=== PATIENT | male | born 1935 | race Caucasian/White ===

== ENCOUNTER 2018-12-08 22:52 | Inpatient (IN) | payer MEDICARE, SELFPAY ==
[2018-12-08 23:10] VITALS: BP 157/83; PULSE 63; RESP 20; TEMP 36.6; O2SAT 96; BMI 39.1
--- NOTE | 2018-12-08 23:34 | ED_ITS ---
HPI - Skin/Abscess/Foreign Bdy General Chief complaint: Skin/Abscess/Foreign Body Stated complaint: STATES ABSCESS RT THIGH Time Seen by Provider: 12/08/18 23:34 Source: patient Mode of arrival: ambulatory Limitations: no limitations History of Present Illness HPI narrative: Patient is an 83-year-old insulin-dependent diabetic male who came over from [facility]. Was sent by his primary doctor for concerns of wo rsening cellulitis and an abscess in his right lower extremity. Was reported that the patient was placed on doxycycline several weeks ago for a cellulitis in his back. He states he completed that course and affection had resolved. He stated that approximately 1 week ago he started having redness and swelling to his right lower extremity. Was on the front of his del angel. Stated that the symptoms worsened throughout last week. He went to his primary doctor last week where he was placed on Bactrim. He states he has been taking Bactrim since then. He states that the redness has now worsened over the past 24-36 hr. The swelling has worsened. He is having more pain in his lower extremity. He states that overall he feels okay. Has not had any fevers. Does have swelling from his mid foot up to his knee which he states is new. He has been taking the antibiotics. Patient is on Xarelto. Related Data Home Medications Medication Instructions Recorded Confirmed B1/B2/NIACIN/B12/PROTEASE 1 tab PO #0 02/26/12 (B-Complex With B-12 Tablet) Lantus U-100 Insulin 16 unit SQ QAM #0 02/26/12 glipizide See Rx Instructions .ROUTE 02/26/12 .COMPLEX #0 rosuvastatin [Crestor] 1 tab PO QPM #0 02/26/12 amiodarone 1 tab PO QPM 12/09/18 12/09/18 cholecalciferol (vitamin D3) 1,000 unit PO DAILY 12/09/18 12/09/18 [Vitamin D3] cranberry conc-ascorbic acid 1 tab PO QAM 12/09/18 12/09/18 [Super Cranberry] furosemide 1 tab PO QAM 12/09/18 12/09/18 hydralazine 1 tab PO TID 12/09/18 12/09/18 hydrocortisone valerate PRN 12/09/18 isosorbide mononitrate 1 tab PO DAILY 12/09/18 12/09/18 magnesium oxide-Mg AA chelate 1 tab PO QAM 12/09/18 12/09/18 [Magnesium (oxide/AA chelate)] oxymetazoline 2 spray INTRANASAL PRN PRN 12/09/18 12/09/18 potassium chloride 1 tab PO BID 12/09/18 12/09/18 rivaroxaban [Xarelto] 1 tab PO DAILY 12/09/18 12/09/18 tamsulosin 1 tab PO QPM 12/09/18 12/09/18 Allergies Allergy/AdvReac Type Severity Reaction Status Date / Time hydralazine Allergy Verified 12/08/18 23:18 hydrocodone Allergy Verified 12/08/18 23:18 isradipine Allergy Verified 12/08/18 23:18 atorvastatin AdvReac Verified 12/08/18 23:18 morphine AdvReac Verified 12/08/18 23:18 tramadol AdvReac Verified 12/08/18 23:18 Review of Systems Constitutional Denies fatigue and Denies fever(s) Cardiovascular Denies chest pain and Denies dyspnea Respiratory Denies dyspnea Gastrointestinal Gastrointestinal: Denies abdominal pain Musculoskeletal Denies myalgias, Denies arthralgias and Denies tingling Comments: Swelling to the right lower extremity from the foot to the knee Integumentary/Breasts Comments: Redness on the front part of his right lower extremity with swelling Neurologic Denies behavioral changes and Denies tingling Psychiatric Denies behavioral changes Endocrine Denies fatigue Hematologic/Lymphatic Comments: On Xarelto [facility] Medical History Diabetes (Acute) Hyperlipidemia (Acute) Hypertension (Acute) Social History household members: spouse Smoking Status: Former smoker Social History household members: spouse Smoking Status: Former smoker Exam Initial Vital Signs Initial Vital Signs: Vital Signs Temperature 97.8 F 12/08/18 23:10 Pulse Rate 63 12/08/18 23:10 Respiratory Rate 20 12/08/18 23:10 Blood Pressure 157/83 H 12/08/18 23:10 Pulse Oximetry 96 12/08/18 23:10 Const General: cooperative, comfortable, well developed, well groomed and No acute distress Orientation: alert, awake and oriented x3 Resp Effort & Inspection: normal respiratory effort Cardio Rate: regular rate GI Inspection: non-distended Skin Other: Patient with a 25 cm area of cellulitis encompassing the anterior aspect of the right tibia. Has a center area 3 cm induration. No blisters of the skin. Neuro General: alert, awake and oriented x3 Cognition: normal cognition Speech: speech normal Sensory Exam: no sensory deficits noted Extrem Other: Patient with edema from his right mid foot to just distal to his knee. Full range of motion of the ankle and the knee Psych Appearance: grossly normal and well kempt Procedures Abscess I/D Site: lower extremity Side (if applicable): right Local Anesthetic: lidocaine 1% and with epi Amount of anesthesia used (mL): 8 Technique: incised with #11 blade Irrigation: No Packing used?: none Complications: bleeding Scores GCS Chauncey coma scale eye opening: Spontaneous Cortez coma scale verbal response: Orientated Chauncey coma scale motor response: Obey commands Cortez coma scale total score: 15 Course Orders Ordered: ED Orders 12/09/18 00:25 Basic Metabolic Panel Stat Complete Blood Count AUTO DIFF Stat Partial Thromboplastin Time Stat Procalcitonin Stat Prothrombin Time INR Stat 12/09/18 00:40 Blood Culture Stat Ceftriaxone Sodium/Dextrose (Rocephin) 2 gm in 50 mls @ 100 mls/hr IV Q12H STEPHEN Discontinued Medications Vancomycin HCl 2,000 mg/ (Sodium Chloride) 500 mls @ 250 mls/hr IV NOW ONE Stop: 12/09/18 00:08 Last Infusion: 12/09/18 02:35 Dose: 0 mls/hr Admin: 12/09/18 01:24 Dose: 250 mls/hr Vital Signs - 8 hr 12/08/18 23:10 12/09/18 00:53 12/09/18 01:22 Temperature 97.8 F 97.2 F L Pulse Rate 63 56 L 63 Respiratory Rate 20 18 18 Blood Pressure 157/83 H 129/55 L 148/77 H Pulse Oximetry 96 99 95 MDM - Skin/Abscess/Foreign Bdy Lab Data Attestation: I reviewed the patient's lab results. Result diagrams: 12/09/18 00:25 12/09/18 00:25 Lab Results 12/09/18 12/09/18 12/09/18 Range/Units 00:25 00:25 00:25 WBC 9.0 (4.5-11.0) X10^3/uL RBC 4.06 L (4.5-5.9) X10^6/uL Hgb 13.8 (13.5-17.5) g/dL Hct 41.7 (41-53) % MCV 102.7 H (80-100) fL MCH 34.1 H (26-34) PG MCHC 33.2 (30-36) % RDW 14.4 (11.6-14.8) % Plt Count 108 L (150-400) X10^3/uL Neut % (Auto) 73.1 (50-75) % Lymph % (Auto) 12.9 L (25-40) % [place] % (Auto) 12.0 (3-14) % Eos % (Auto) 1.2 L (2-4) % Baso % (Auto) 0.8 (0-2) % Neut # (Auto) 6600 (4084-6154) /uL Lymph # (Auto) 1200 (5601-4883) /uL [place] # (Auto) 1100 H (0-900) /uL Eos # (Auto) 100 (0-450) /uL Baso # (Auto) 100 (0-100) /uL PT (10.1-12.7) SECONDS INR (0.9-1.3) APTT (26.4-36.2) SECONDS Sodium 140 (137-145) mmol/L Potassium 4.9 (3.4-5.1) mmol/L Chloride 101 (98-107) mmol/L Carbon Dioxide 31 (22-32) mmol/L BUN 42 H (9-20) mg/dL Creatinine 1.90 H (0.66-1.25) mg/dL Estimated GFR 33.9 L (>60) mL/min BUN/Creatinine Ratio 22.1 H (6-22) Glucose 76 L (80-110) mg/dL Calcium 10.1 (8.4-10.2) mg/dL Procalcitonin < 0.05 (<0.5) ng/mL 12/09/18 Range/Units 00:25 WBC (4.5-11.0) X10^3/uL RBC (4.5-5.9) X10^6/uL Hgb (13.5-17.5) g/dL Hct (41-53) % MCV (80-100) fL MCH (26-34) PG MCHC (30-36) % RDW (11.6-14.8) % Plt Count (150-400) X10^3/uL Neut % (Auto) (50-75) % Lymph % (Auto) (25-40) % [place] % (Auto) (3-14) % Eos % (Auto) (2-4) % Baso % (Auto) (0-2) % Neut # (Auto) (0317-2325) /uL Lymph # (Auto) (7170-0565) /uL [place] # (Auto) (0-900) /uL Eos # (Auto) (0-450) /uL Baso # (Auto) (0-100) /uL PT 24.7 H (10.1-12.7) SECONDS INR 2.1 H (0.9-1.3) APTT 38 H (26.4-36.2) SECONDS Sodium (137-145) mmol/L Potassium (3.4-5.1) mmol/L Chloride (98-107) mmol/L Carbon Dioxide (22-32) mmol/L BUN (9-20) mg/dL Creatinine (0.66-1.25) mg/dL Estimated GFR (>60) mL/min BUN/Creatinine Ratio (6-22) Glucose (80-110) mg/dL Calcium (8.4-10.2) mg/dL Procalcitonin (<0.5) ng/mL MDM Narrative Medical decision making narrative: Patient looks well however given his age and his diabetes status and the fact that he has been on Bactrim for 4 days by mouth and has had worsening cellulitis in his right lower extremity admission to the hospital is necessary for IV antibiotics. After bedside ultrasound showed what appeared to be an abscess in the center of the cellulitis and I and D was performed with only minimal return of purulent material. The wound was probed to break up any loculations. Patient was given vancomycin. Discussed the case with Bassam dotson who will admit the patient for IV antibiotics. Discussed admission with the patient who expressed understanding and agreement of plan. Discharge Plan Departure Patient Disposition: Admitted As Inpatient Clinical Impression: Cellulitis Qualifiers: Site of cellulitis: extremity Site of cellulitis of extremity: lower extremity Laterality: right Qualified Code(s): L03.115 - Cellulitis of right lower limb Discharge Date/Time: 12/09/18 00:59 Interventions: ED Discharge Assessment Last Done: 12/09/18 00:53 Admit Date/Time: 12/09/18 00:27 Admit Provider: Tenzin Galan
[2018-12-09] VITALS (12 sets, daily range): BP systolic 125–150; BP diastolic 55–80; PULSE 54–66; RESP 16–20; TEMP 36.2–36.9; O2SAT 89–99; BMI 39.1
--- NOTE | 2018-12-09 00:30 | PC.NURSE ---
I&D performed by MD Esquivel
[2018-12-09 00:34] LABS: Add Manual Diff / Slide Review NO; Basophils Absolute Auto 100 /uL (0-100); Basophils Percent Auto 0.8 % (0-2); Eosinophils Absolute Auto 100 /uL (0-450); Eosinophils Percent Auto 1.2 % (2-4); Hematocrit 41.7 % (41-53); Hemoglobin 13.8 g/dL (13.5-17.5); Lymphocytes Absolute Auto 1200 /uL (1100-4500); Lymphocytes Percent Auto 12.9 % (25-40); Mean Corpuscular HGB Conc 33.2 % (30-36); Mean Corpuscular Hemoglobin 34.1 PG (26-34); Mean Corpuscular Volume 102.7 fL (80-100); Monocytes Absolute Auto 1100 /uL (0-900); Neutrophils Absolute Auto 6600 /uL (1500-7000); Neutrophils Percent Auto 73.1 % (50-75); Platelet Count 108 X10^3/uL (150-400); Red Blood Cell Count 4.06 X10^6/uL (4.5-5.9); Red Cell Distribution Width 14.4 % (11.6-14.8)
[2018-12-09 00:39] LABS: INR 2.1 (0.9-1.3); Prothrombin Time 24.7 SECONDS (10.1-12.7)
[2018-12-09 00:42] LABS: PTT Partial Thromboplastin Tim 38 SECONDS (26.4-36.2)
[2018-12-09 00:46] LABS: BUN Creatinine Ratio 22.1 (6-22); Blood Urea Nitrogen 42 mg/dL (9-20); Calcium 10.1 mg/dL (8.4-10.2); Carbon Dioxide 31 mmol/L (22-32); Chloride 101 mmol/L (98-107); Estimated Glomerular Filt Rate 33.9 mL/min (>60); Glucose 76 mg/dL (80-110); HEMOLYSIS < 15 (0-50); Potassium 4.9 mmol/L (3.4-5.1); Sodium 140 mmol/L (137-145)
[2018-12-09 01:03] LABS: Procalcitonin < 0.05 ng/mL (<0.5)
[2018-12-09] MEDS: VANCOMYCIN 2,000 MG in SODIUM CHLORIDE 0.9% 500 ML 250 ML IV (01:24)
[2018-12-09] MEDS: CEFTRIAXONE 2 GM/50 ML FROZ.PIGGY IV ×2 (03:40→14:14)
[2018-12-09] MEDS: ACETAMINOPHEN 325 MG TABLET 650 MG PO (04:38)
--- NOTE | 2018-12-09 04:54 | PC.NURSE ---
ADMIT NOTE/ PATIENT HOME MEDICATION: Patient admitted to acute care in the 0100 hour this shift from ER. Patient to room via stretcher. Patient transferred from stretcher to bed with SBA. Patient very unsteady on his feet. Patient brought home walker to use and patient label placed on home walker. Patient brought home medications with him in his weekly pill boxes. Explained to patient and patient's this hospital's policy on patient's keeping home medications at the bedside. Patient wanting to take his own medications as he always does from his pill boxes. Again explained to patient that the pharmacist could have to review the pill boxes and that usually when a patient uses their home medications the pharmacy would distribute those pills out of a labeled medication bottle. Patient very irritated with this information and refuses to have pills taken to the pharmacy at to be secured. Patient with Koban wrap on R lower leg from I&D in ER. RLE is red with 2+ pitting edema. Patient with audible wheezing and unable to lay flat in bed. Patient with noted redness to Panus area but patient declines to have this RN fully assess panus. Redness viewed from the side view while patient leaning over onto his walker while ambulating. Noted red, flat area on patient's upper back which patient states is a healing abcess from a few weeks ago. Patient placed on telemetry per orders and patient very upset that he is being monitored as he is just here to have the abcess addressed. Patient complains of cramping pain in RLE and agrees to take tylenol. Dressing very tight on R calf and this RN cut relief points into the back of the Koban with medical scissors. Patient now trying to rest quietly, complains he has not gotten any sleep.
--- NOTE | 2018-12-09 05:30 | P.HP_ITS ---
History of Present Illness Date Patient Seen: 12/09/18 Time Patient Seen: 02:30 Chief complaint: STATES ABSCESS RT THIGH Narrative: This is an 83-year-old male patient with a history of hypertension, hyperlipidemia, insulin-dependent diabetes and atrial fibrillation who presents today for a worsening wound infection with cellulitis. The patient resides on [facility] and has been receiving care on the [place] for an abscess on his back that was treated with doxycycline with resolution however patient has developed a new lesion on his right lower extremity extending from the mid foot to the knee. The patient denies trauma or skin disruption to the leg. Wound been treated with Bactrim however the wound continued to worsen. The patient denies complaints of fevers or chills, headaches or dizziness, chest pain or shortness of breath. He has had no nausea or vomiting and denies constipation or diarrhea. The patient is admitted to the hospital for cellulitis failing outpatient treatment. Patient History Medical History Atrial fibrillation (Acute) Diabetes (Acute) Hyperlipidemia (Acute) Hypertension (Acute) Osteoarthritis (Acute) Surgical History History of aortic valve replacement (Acute) History of back surgery (Acute) History of inguinal hernia repair (Acute) History of spinal fusion (Acute) History of total left hip arthroplasty (Acute) History of total right knee replacement (Acute) Social History household members: spouse Smoking Status: Former smoker Family & Social History Social History: household members spouse Prior Living Arrangements House Safety & Behavioral: Feels Safe in Current Yes Environment Been Physically Hurt or No Threatened By a Person Suicidal Ideation Description None Tobacco & Substance use: Smoking Status Former smoker alcohol intake frequency holiday/special occasion Substance Use Type does not use Comment: The patient lives in is single family home with his of 55 years. Smoking history: The patient has smoked 2 packs per day for 5 years quitting approximately 45 years ago Alcohol: patient denies alcohol use Substance use: Patient denies recreation pharmaceuticals, herbal or cannabis products Advanced directives: the patient wishes to be DO NOT RESUSCITATE/DO NOT INTUBATE and designates his to be his surrogate decision maker Meds Home Medications Medication Instructions Recorded Confirmed Type B1/B2/NIACIN/B12/PROTEASE 1 tab PO DAILY #0 02/26/12 12/09/18 History (B-Complex With B-12 Tablet) Lantus U-100 Insulin 16 unit SQ QAM #0 02/26/12 12/09/18 History glipizide 1 tab PO QPM #0 02/26/12 12/09/18 History rosuvastatin [Crestor] 1 tab PO QPM #0 02/26/12 12/09/18 History amiodarone 1 tab PO QPM 12/09/18 12/09/18 History cholecalciferol (vitamin D3) 1,000 unit PO DAILY 12/09/18 12/09/18 History [Vitamin D3] cranberry conc-ascorbic acid 1 tab PO QAM 12/09/18 12/09/18 History [Super Cranberry] furosemide 1 tab PO QAM 12/09/18 12/09/18 History hydralazine 1 tab PO TID 12/09/18 12/09/18 History hydrocortisone valerate PRN 12/09/18 History isosorbide mononitrate 1 tab PO DAILY 12/09/18 12/09/18 History magnesium oxide-Mg AA chelate 1 tab PO QAM 12/09/18 12/09/18 History [Magnesium (oxide/AA chelate)] oxymetazoline 2 spray INTRANASAL PRN PRN 12/09/18 12/09/18 History potassium chloride 1 tab PO BID 12/09/18 12/09/18 History rivaroxaban [Xarelto] 1 tab PO DAILY 12/09/18 12/09/18 History tamsulosin 1 tab PO QPM 12/09/18 12/09/18 History Allergies Allergy/AdvReac Type Severity Reaction Status Date / Time hydralazine Allergy Verified 12/08/18 23:18 hydrocodone Allergy Verified 12/08/18 23:18 isradipine Allergy Verified 12/08/18 23:18 atorvastatin AdvReac Verified 12/08/18 23:18 morphine AdvReac Verified 12/08/18 23:18 tramadol AdvReac Verified 12/08/18 23:18 Review of Systems Review of Systems All systems reviewed & are unremarkable except as noted in HPI and below Exam Vital Signs (past 8 hours): - 12/08/18 23:10 12/09/18 00:53 12/09/18 01:22 Temperature 97.8 F 97.2 F L Pulse Rate 63 56 L 63 Respiratory Rate 20 18 18 Blood Pressure 157/83 H 129/55 L 148/77 H Pulse Oximetry 96 99 95 12/09/18 04:53 Temperature 97.3 F L Pulse Rate 54 L Respiratory Rate 16 Blood Pressure 125/68 Pulse Oximetry 93 Oxygen Delivery Method Room Air Narrative Exam Narrative: GENERAL APPEARANCE: well developed, obese male who is afebrile and in no acute distress. HEAD: Normocephalic, atraumatic, no scalp lesions. EYES: pupils equal, round, reactive to light and accommodation, sclera non- icteric, extraocular movement intact . EARS: normal external structures, no ear pain NOSE: sinuses non tender to percussion, no rhinorrhea ORAL CAVITY: mucosa moist without lesions or exudate, palate normal, tongue in midline. THROAT: normal, no erythema, no exudate, pharynx normal, uvula midline. NECK/THYROID: neck supple, no jugular venous distention, no carotid bruit, no thyromegaly, trachea midline. LYMPH NODES: no cervical or supraclavicular lymphadenopathy. SKIN: warm and dry, no suspicious lesions, no rashes, good turgor. HEART: regular rate and rhythm, S1-S2, 2/6 systolic murmur, without rubs, gallops, brisk capillary refill, no edema LUNGS: clear to auscultation bilaterally, no coarseness crackles or wheezing, no cough present CHEST: Symmetrical movement, no accessory muscle use, no pain to AP and lateral compression. ABDOMEN: Soft, obese, exam limited by body habitus, no epigastric or abdominal tenderness on palpation, no guarding or peritoneal signs, BACK: nontender to palpation EXTREMITIES: Warmth and swelling to right lower extremity distal to the knee, area of discoloration approximately 10 cm, wound where ER physician evacuated abscess dressed with a pressure dressing moves all extremities, strength is 5/5 and symmetrical NEUROLOGIC: AAO x4, cranial nerves II-XII grossly intact , motor strength normal upper and lower extremities, sensation right foot normal, neuropathy of left foot, hearing grossly normal to speech. PSYCH: alert, cognitive function intact, good eye contact, stable mood with congruent affect Objective Labs Result Diagrams: 12/09/18 00:25 12/09/18 00:25 Labs: Laboratory Results - last 24 hr 12/09/18 12/09/18 12/09/18 00:25 00:25 00:25 WBC 9.0 RBC 4.06 L Hgb 13.8 Hct 41.7 MCV 102.7 H MCH 34.1 H MCHC 33.2 RDW 14.4 Plt Count 108 L Neut % (Auto) 73.1 Lymph % (Auto) 12.9 L [place] % (Auto) 12.0 Eos % (Auto) 1.2 L Baso % (Auto) 0.8 Neut # (Auto) 6600 Lymph # (Auto) 1200 [place] # (Auto) 1100 H Eos # (Auto) 100 Baso # (Auto) 100 PT INR APTT Sodium 140 Potassium 4.9 Chloride 101 Carbon Dioxide 31 BUN 42 H Creatinine 1.90 H Estimated GFR 33.9 L BUN/Creatinine Ratio 22.1 H Glucose 76 L Calcium 10.1 Procalcitonin < 0.05 12/09/18 00:25 WBC RBC Hgb Hct MCV MCH MCHC RDW Plt Count Neut % (Auto) Lymph % (Auto) [place] % (Auto) Eos % (Auto) Baso % (Auto) Neut # (Auto) Lymph # (Auto) [place] # (Auto) Eos # (Auto) Baso # (Auto) PT 24.7 H INR 2.1 H APTT 38 H Sodium Potassium Chloride Carbon Dioxide BUN Creatinine Estimated GFR BUN/Creatinine Ratio Glucose Calcium Procalcitonin Assessment & Plan Assessment & Plan narrative: 1. Skin infection with cellulitis, acute -patient previously treated with doxy Cyclen for back wound with good result -patient with new lesion treated with Bactrim and worsening infection failing outpatient treatment -the patient was started on vancomycin 2 g which is discontinued related to patient's renal function with a BUN of 42 and creatinine 1.9. -the patient is started on ceftriaxone 2 g twice daily -will monitor wound as well as procalcitonin which was initially negative at less than 0.05 2. Diabetes mellitus type 2, insulin-dependent, chronic -patient requires Lantus 16 units once daily and also takes glipizide daily, his blood sugar on lab work in the ER was 76, will continue Lantus 16 units daily -patient with nephropathy and neuropathy and has been prescribed Lyrica for his neuropathy. -Accu-Cheks a.c. HS, will cover with low range sliding scale insulin -will obtain hemoglobin A1c 3. Chronic kidney disease stage III, present on admission, unknown of acute on chronic -there are no previous labs for comparison her patient has a BUN of 42 and creatinine 1.9. -urinalysis is ordered -vancomycin discontinued due to renal toxicity, will continue Lasix 40 mg daily -will follow renal function 4. Hypertension, present on admission, chronic -admitting blood pressure is 157/83. Follow-up pressure on the floor is 125/68. -will continue isosorbide and hold hydralazine and follow blood pressures 5. Atrial fibrillation, chronic -Patient with regular rhythm on exam -patient is on amiodarone and anticoagulated on Xarelto. 6. Hyperlipidemia, chronic, presume stable -will continue rosuvastatin 10 mg daily The patient is admitted to the hospital related to severity of symptoms and risk for complications. The patient is admitted as an inpatient with anticipation of length of stay to be greater than 2 midnights. Time Spent With Patient Time with patient: 25 - 35 minutes Quality VTE Deep Vein Thrombosis/Pulmonary Embolism Present on Admission: No
[2018-12-09 06:15] LABS: Add Manual Diff / Slide Review NO; Basophils Absolute Auto 0 /uL (0-100); Basophils Percent Auto 0.4 % (0-2); Eosinophils Absolute Auto 100 /uL (0-450); Eosinophils Percent Auto 1.2 % (2-4); Hematocrit 37.7 % (41-53); Hemoglobin 12.8 g/dL (13.5-17.5); Lymphocytes Absolute Auto 800 /uL (1100-4500); Lymphocytes Percent Auto 10.3 % (25-40); Mean Corpuscular HGB Conc 33.9 % (30-36); Mean Corpuscular Hemoglobin 34.9 PG (26-34); Mean Corpuscular Volume 103.1 fL (80-100); Monocytes Absolute Auto 1000 /uL (0-900); Monocytes Percent Auto 12.6 % (3-14); Neutrophils Absolute Auto 6100 /uL (1500-7000); Neutrophils Percent Auto 75.5 % (50-75); Platelet Count 91 X10^3/uL (150-400); Red Blood Cell Count 3.66 X10^6/uL (4.5-5.9); Red Cell Distribution Width 14.2 % (11.6-14.8)
[2018-12-09 06:38] LABS: BUN Creatinine Ratio 21.1 (6-22); Blood Urea Nitrogen 38 mg/dL (9-20); Calcium 9.4 mg/dL (8.4-10.2); Carbon Dioxide 29 mmol/L (22-32); Chloride 103 mmol/L (98-107); Estimated Glomerular Filt Rate 36.1 mL/min (>60); Glucose 85 mg/dL (80-110); HEMOLYSIS < 15 (0-50); Potassium 4.3 mmol/L (3.4-5.1); Sodium 140 mmol/L (137-145)
[2018-12-09 07:02] LABS: Procalcitonin < 0.05 ng/mL (<0.5)
--- NOTE | 2018-12-09 07:23 | PM.PN.1 ---
Subjective Date Patient Seen: 12/09/18 Interval history: Sami Mcneal is an 83-year-old male with a past medical history significant for hypertension, hyperlipidemia, insulin-dependent diabetes and atrial fibrillation who presents today for a worsening wound infection with cellulitis The patient is resting in bed comfortably and in no acute distress. He or she denies headache, ear pain, rhinitis, sore throat, cough, shortness of breath, chest pain, abdominal pain, nausea, vomiting, fever, chills, dysuria, diarrhea or constipation. He or she is voiding and eliminating without difficulty. He or she is up ambulating without or with assistance. Exam Vital Signs (past 8 hours): - 12/09/18 00:53 12/09/18 01:22 12/09/18 04:53 Temperature 97.2 F L 97.3 F L Pulse Rate 56 L 63 54 L Respiratory Rate 18 18 16 Blood Pressure 129/55 L 148/77 H 125/68 Pulse Oximetry 99 95 93 Oxygen Delivery Method Room Air Objective Labs Result Diagrams: 12/09/18 05:27 12/09/18 05:27 Labs: Laboratory Results - last 24 hr 12/09/18 12/09/18 12/09/18 00:25 00:25 00:25 WBC 9.0 RBC 4.06 L Hgb 13.8 Hct 41.7 MCV 102.7 H MCH 34.1 H MCHC 33.2 RDW 14.4 Plt Count 108 L Neut % (Auto) 73.1 Lymph % (Auto) 12.9 L [place] % (Auto) 12.0 Eos % (Auto) 1.2 L Baso % (Auto) 0.8 Neut # (Auto) 6600 Lymph # (Auto) 1200 [place] # (Auto) 1100 H Eos # (Auto) 100 Baso # (Auto) 100 PT INR APTT Sodium 140 Potassium 4.9 Chloride 101 Carbon Dioxide 31 BUN 42 H Creatinine 1.90 H Estimated GFR 33.9 L BUN/Creatinine Ratio 22.1 H Glucose 76 L Calcium 10.1 Procalcitonin < 0.05 12/09/18 12/09/18 12/09/18 00:25 05:27 05:27 WBC 8.0 RBC 3.66 L Hgb 12.8 L Hct 37.7 L MCV 103.1 H MCH 34.9 H MCHC 33.9 RDW 14.2 Plt Count 91 L Neut % (Auto) 75.5 H Lymph % (Auto) 10.3 L [place] % (Auto) 12.6 Eos % (Auto) 1.2 L Baso % (Auto) 0.4 Neut # (Auto) 6100 Lymph # (Auto) 800 L [place] # (Auto) 1000 H Eos # (Auto) 100 Baso # (Auto) 0 PT 24.7 H INR 2.1 H APTT 38 H Sodium Potassium Chloride Carbon Dioxide BUN Creatinine Estimated GFR BUN/Creatinine Ratio Glucose Calcium Procalcitonin < 0.05 12/09/18 05:27 WBC RBC Hgb Hct MCV MCH MCHC RDW Plt Count Neut % (Auto) Lymph % (Auto) [place] % (Auto) Eos % (Auto) Baso % (Auto) Neut # (Auto) Lymph # (Auto) [place] # (Auto) Eos # (Auto) Baso # (Auto) PT INR APTT Sodium 140 Potassium 4.3 Chloride 103 Carbon Dioxide 29 BUN 38 H Creatinine 1.80 H Estimated GFR 36.1 L BUN/Creatinine Ratio 21.1 Glucose 85 Calcium 9.4 Procalcitonin Quality VTE Deep Vein Thrombosis/Pulmonary Embolism Present on Admission: No
[2018-12-09 08:32] LABS: Hemoglobin A1C% w Est Avg Glu 6.2 % (4.0-6.0)
[2018-12-09 08:52] LABS: RBC Urine None Seen (0-5/HPF); WBC Urine None Seen (0-5/HPF)
[2018-12-09 08:55] LABS: Appearance Urine UA CLEAR; Bilirubin Urine UA NEGATIVE (NEGATIVE); Color Urine UA YELLOW; Glucose Urine UA NEGATIVE (Negative); Ketones Urine UA NEGATIVE (NEGATIVE); Leukocyte Esterase Urine UA NEGATIVE (NEGATIVE); Nitrite Urine UA NEGATIVE (Negative); Occult Blood Urine UA NEGATIVE (Negative); Protein Urine UA 1+ (Negative); Specific Gravity Urine UA 1.025 (1.000-1.035); Urobilinogen Urine UA 0.2 E.U./dL (0.2)
[2018-12-09] MEDS: ISOSORBIDE MONONITRATE ER 30 MG TABLET PO (09:49)
[2018-12-09] MEDS: INSULIN GLARGINE 100 UNIT/ML 3ML PEN 16 UNIT SUBCUT (09:49)
[2018-12-09] MEDS: RIVAROXABAN 10 MG TABLET 15 MG PO ×2 (09:49→17:03)
[2018-12-09] MEDS: POTASSIUM CHLORIDE 10 MEQ TAB PO ×2 (09:49→21:11)
[2018-12-09] MEDS: FUROSEMIDE 40 MG TABLET PO (09:50)
[2018-12-09 09:54] LABS: Bacteria Urine Few (2-10); Culture Indicated Urine Cult Not Indicated; Squamous Epithelial Cell Urine 0-1 /HPF
--- NOTE | 2018-12-09 14:29 | CM.DANOTE ---
Discharge Planning/Care Management DCP: assessment: case received, EMR reviewed and met with pt and his ,Leah. Introduced self and role. Pt is an 83 year old male who admitted shortly after midnight to care of hospitalist team. Payer: [employer] and [employer] PCP: Dr. Khari Clark. Pt reports he is most eager to d/c home but does admit that it is prudent to stay and receive treatment for his leg infection. He and Leah live on [facility]. He has just completed antibiotics for an abscess on his back with care at the [facility]. Now with abscess on his R thigh and with I&D in ER. IV antibiotics are running. P: Pt is eager for home when stable for same. will be following. Leah is rooming in. CM Discharge Assessment Start: 12/09/18 14:28 Freq: Status: Active Protocol: Document 12/09/18 14:28 ITV (Rec: 12/09/18 14:29 ITV [id number]) Discharge Planning Assessment Advance Directives? No History Provided By Patient Family Member Medical Record Prior Living Arrangements House Household Members spouse Review Status In Process Next Review Type Continued Stay Review
[2018-12-09] MEDS: BISACODYL 5 MG TABLET 10 MG PO (14:53)
--- NOTE | 2018-12-09 14:59 | PC.NURSE ---
Addendum entered by Mulu Weller R.N. 12/09/18 15:00: Dressing that was in place this AM had coban in place, RLE had swollen and coban had become tight. this was removed and kerlix was applied. This continued to fall off so a small mepilex was applied to absorb small amt of drainage. Wound cultures taken and sent to lab. 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 Original Note: Day shift pt c/o of needing stool softener. PRN biscodyl PO provided, awaiting results. Up with SBA/1Person assist.
[2018-12-09] MEDS: TAMSULOSIN 0.4 MG CAPSULE PO (17:04)
[2018-12-09] MEDS: INSULIN ASPART 100 UNIT/ML INSULN PEN SUBCUT (17:04)
[2018-12-09] MEDS: AMIODARONE 200 MG TABLET PO (17:04)
[2018-12-09] MEDS: ROSUVASTATIN 10 MG TABLET PO (21:11)
[2018-12-10] MEDS: CEFTRIAXONE 2 GM/50 ML FROZ.PIGGY IV (02:13)
[2018-12-10] MEDS: SODIUM CHLORIDE 0.9% 250 ML 21 ML IV (02:40)
[2018-12-10 05:00] VITALS: BP 160/92; PULSE 64; RESP 16; TEMP 36.6; O2SAT 93
--- NOTE | 2018-12-10 06:06 | PC.NURSE ---
Assumed care of pt at 2300 on 12/09/18. Pt sleeping in bed during bedside hand-off. Awakens to use bathroom. 1 pa w/fww to bathroom. Leans forward during ambulation but steady gait. Erythema to RLE much improved from prior assessments. Drsg c/d/i. Wrap removed on prior shift. Denies pain. Denies sob. IV S.L. with intermit abx. rooming in for the night. Pt up several times to void, he states this is very inconvenient and states he does not want to take anymore lasix. This commercial underwriter notified Hospitalist of pt's plan to stop taking lasix and elevation of BP. Bed alarm though-out shift, pt using call light for needs.
[2018-12-10 06:17] VITALS: O2SAT 93
[2018-12-10 06:33] LABS: Add Manual Diff / Slide Review NO; Basophils Absolute Auto 100 /uL (0-100); Basophils Percent Auto 0.7 % (0-2); Eosinophils Absolute Auto 200 /uL (0-450); Eosinophils Percent Auto 2.4 % (2-4); Hematocrit 39.2 % (41-53); Lymphocytes Absolute Auto 900 /uL (1100-4500); Lymphocytes Percent Auto 11.2 % (25-40); Mean Corpuscular HGB Conc 33.2 % (30-36); Mean Corpuscular Hemoglobin 34.4 PG (26-34); Mean Corpuscular Volume 103.5 fL (80-100); Monocytes Absolute Auto 1000 /uL (0-900); Monocytes Percent Auto 12.4 % (3-14); Neutrophils Absolute Auto 6000 /uL (1500-7000); Neutrophils Percent Auto 73.3 % (50-75); Platelet Count 97 X10^3/uL (150-400); Red Blood Cell Count 3.79 X10^6/uL (4.5-5.9); Red Cell Distribution Width 14.3 % (11.6-14.8); White Blood Cell Count 8.1 X10^3/uL (4.5-11.0)
[2018-12-10 06:40] LABS: BUN Creatinine Ratio 23.7 (6-22); Blood Urea Nitrogen 45 mg/dL (9-20); Calcium 9.5 mg/dL (8.4-10.2); Carbon Dioxide 29 mmol/L (22-32); Chloride 102 mmol/L (98-107); Estimated Glomerular Filt Rate 33.9 mL/min (>60); Glucose 115 mg/dL (80-110); HEMOLYSIS < 15 (0-50); Potassium 4.6 mmol/L (3.4-5.1); Sodium 139 mmol/L (137-145)
[2018-12-10 07:30] VITALS: BP 157/78; PULSE 60; RESP 18; TEMP 36.3; O2SAT 92
[2018-12-10 07:43] VITALS: O2SAT 93
[2018-12-10] MEDS: FUROSEMIDE 40 MG TABLET PO (08:43)
[2018-12-10] MEDS: INSULIN GLARGINE 100 UNIT/ML 3ML PEN 16 UNIT SUBCUT (08:44)
[2018-12-10] MEDS: SODIUM CHLORIDE 0.9% FLUSH 10 ML IV (08:44)
[2018-12-10] MEDS: POTASSIUM CHLORIDE 10 MEQ TAB PO (08:44)
[2018-12-10] MEDS: ISOSORBIDE MONONITRATE ER 30 MG TABLET PO (08:44)
--- NOTE | 2018-12-10 09:12 | P.DS_ITS ---
History of Present Illness Chief complaint: STATES ABSCESS RT THIGH Narrative: his is an 83-year-old male patient with a history of hypertension, hyperlipidemia, insulin-dependent diabetes and atrial fibrillation who presents today for a worsening wound infection with cellulitis. The patient resides on [facility] and has been receiving care on the [place] for an abscess on his back that was treated with doxycycline with resolution however patient has developed a new lesion on his right lower extremity extending from the mid foot to the knee. The patient denies trauma or skin disruption to the leg. Wound been treated with Bactrim however the wound continued to worsen. The patient denies complaints of fevers or chills, headaches or dizziness, chest pain or shortness of breath. He has had no nausea or vomiting and denies constipation or diarrhea. The patient is admitted to the hospital for cellulitis failing outpatient treatment. Discharge Providers Date of admission: 12/09/18 00:27 Discharge Date: 12/10/18 Primary care physician: Rene Clark MD Discharge provider: Janelle Lynch MD Summary Discharge Diagnosis: Right lower extremity cellulitis with abscess, present on admission Persistant Atrial Fibrillation Type 2 Diabetes Mellitus Hyperlipidemia Chronic Systolic Heart Failure Urinary frequency Obesity Chronic Kidney Disease Stage 3 Hospital Course: The patient is an 83 y/o male who was admitted for failed outpatient treatment of right lower extremity cellulitis. He underwent Incision and Drainage in the Emergency department and was started on IV antibiotics. The patient had a culture obtained which had a negative gram stain. He remained afebrile. As the gram stain was negative the patient will be switched to oral doxycycline and discharged home. The patient denies shortness of breath, diarrhea, or constipation. He was discharged home with plans to follow up with his PCP next week. Status at Discharge Cognitive/behavioral status at discharge: oriented Functional status at discharge: independent ambulation Overall status at discharge: patient is back to baseline Time Spent with Patient Less than 30 minutes Exam Vital Signs (past 8 hours): - 12/10/18 05:00 12/10/18 06:17 12/10/18 07:43 Temperature 97.8 F Pulse Rate 64 Respiratory Rate 16 Blood Pressure 160/92 H Pulse Oximetry 93 93 93 Oxygen Delivery Method Room Air Oxygen Flow Rate 0 Narrative Exam Narrative: Awake male in no acute distress LUngs: decreased breath sounds with end expiratory wheezing CV: RRR nl Sl S2 2/6 ETHAN Abd: obese soft/ non tender Ext: right lower extremity with erythema, tender, no exudate or pus from wound Objective Labs Result Diagrams: 12/10/18 05:53 12/10/18 05:53 Labs: Laboratory Results - last 24 hr 12/09/18 12/09/18 12/09/18 08:51 09:45 09:45 WBC RBC Hgb Hct MCV MCH MCHC RDW Plt Count Neut % (Auto) Lymph % (Auto) [place] % (Auto) Eos % (Auto) Baso % (Auto) Neut # (Auto) Lymph # (Auto) [place] # (Auto) Eos # (Auto) Baso # (Auto) Sodium Potassium Chloride Carbon Dioxide BUN Creatinine Estimated GFR BUN/Creatinine Ratio Glucose Calcium Urine Color Yellow Urine Appearance Clear Urine pH 6.0 Ur Specific [place] 1.025 Urine Protein 1+ H Urine Glucose (UA) Negative Urine Ketones Negative Urine Occult Blood Negative Urine Nitrate Negative Urine Bilirubin Negative Urine Urobilinogen 0.2 Ur Leukocyte Esterase Negative Urine RBC None seen Urine WBC None seen Ur Squamous Epith Cells 0-1 /hpf Urine Bacteria Few (2-10) H Ur Culture Indicated? Cult not indicated Nasal Screen MRSA (PCR) Negative for mrsa Negative for mrsa 12/10/18 12/10/18 05:53 05:53 WBC 8.1 RBC 3.79 L Hgb 13.0 L Hct 39.2 L MCV 103.5 H MCH 34.4 H MCHC 33.2 RDW 14.3 Plt Count 97 L Neut % (Auto) 73.3 Lymph % (Auto) 11.2 L [place] % (Auto) 12.4 Eos % (Auto) 2.4 Baso % (Auto) 0.7 Neut # (Auto) 6000 Lymph # (Auto) 900 L [place] # (Auto) 1000 H Eos # (Auto) 200 Baso # (Auto) 100 Sodium 139 Potassium 4.6 Chloride 102 Carbon Dioxide 29 BUN 45 H Creatinine 1.90 H Estimated GFR 33.9 L BUN/Creatinine Ratio 23.7 H Glucose 115 H Calcium 9.5 Urine Color Urine Appearance Urine pH Ur Specific [place] Urine Protein Urine Glucose (UA) Urine Ketones Urine Occult Blood Urine Nitrate Urine Bilirubin Urine Urobilinogen Ur Leukocyte Esterase Urine RBC Urine WBC Ur Squamous Epith Cells Urine Bacteria Ur Culture Indicated? Nasal Screen MRSA (PCR) Discharge Plan Discharge Plan Discharge Problem: Cellulitis Patient Disposition: Home Discharge Med Rec/Prescriptions Prescriptions: New doxycycline hyclate 100 mg tablet 100 mg PO BID Qty: 14 RF: 0 Continued Lantus U-100 Insulin 100 UNIT/1 ML solution 16 unit SQ QAM Qty: 0 RF: 0 rosuvastatin [Crestor] 10 MG tablet 1 tab PO QPM Qty: 0 RF: 0 glipizide 5 MG tablet 1 tab PO QPM Qty: 0 RF: 0 B1/B2/NIACIN/B12/PROTEASE (B-Complex With B-12 Tablet) 1 tab PO DAILY Qty: 0 RF: 0 amiodarone 200 mg tablet 1 tab PO QPM RF: 0 furosemide 40 mg tablet 1 tab PO QAM RF: 0 tamsulosin 0.4 mg capsule 1 tab PO QPM RF: 0 isosorbide mononitrate 30 mg tablet extended release 24 hr 1 tab PO DAILY RF: 0 potassium chloride 10 mEq capsule, extended release 1 tab PO BID RF: 0 Xarelto 15 mg tablet 1 tab PO DAILY RF: 0 oxymetazoline 0.05 % spray,non-aerosol 2 spray Intranasal PRN PRN (Reason: (Drug) Ingestion) RF: 0 hydralazine 10 mg tablet 1 tab PO TID RF: 0 Magnesium (oxide/AA chelate) 300 mg Capsule 1 tab PO QAM RF: 0 cholecalciferol (vitamin D3) [Vitamin D3] 1,000 unit Capsule 1,000 unit PO DAILY RF: 0 Super Cranberry 140-100 mg Capsule 1 tab PO QAM RF: 0 hydrocortisone valerate 0.2 % ointment 1 % topical PRN PRN (Reason: Rash) RF: 0 Follow up/Referrals: Rene Clark MD [Primary Care Provider] - Provider Discharge Instructions Diet: Carb-consistent/Diabetic, Low-fat and Low-sodium Activity: as tolerated, elevate right leg often Skin/Wound/Dressing Care Report to your healthcare provider any signs of infection, such as:: chills, fever and night sweats Dressing: dressing change daily until healed Discharge Data Primary Care Provider: Rene Clark Attending Provider: Tenzin Galan Admit Date/Time: 12/09/18 00:27 Quality VTE Deep Vein Thrombosis/Pulmonary Embolism Present on Admission: No
[2018-12-10 11:15] VITALS: O2SAT 94
[2018-12-10 11:22] VITALS: BP 145/72; PULSE 63; RESP 18; TEMP 36.4; O2SAT 90
[2018-12-10] MEDS: INSULIN ASPART 100 UNIT/ML INSULN PEN SUBCUT (12:46)
--- NOTE | 2018-12-10 13:42 | PC.NURSE ---
Discharge pt took all belongings with him. PIV and tele removed prior to d/c. Rx called [facility] and pt took paper Rx with him. D/c instructions provided to pt and . aware to contact PCP with any additional questions or concerns. pt left in w/c with [employer] escort and . Juan priority boarding pass provided to pt.
== END 2018-12-10 13:15 | disposition home or self-care (01) | DRG 603 ==
LOC: ED 12-09 00:08 → AC 12-09 07:41
PROVIDERS: Internal Medicine; Admitting Provider Nurse Practitioner Adult Health; Emergency Provider Emergency Medicine; Family Provider Family Medicine; PCP Family Medicine; Visit Provider Nurse Practitioner Adult Health
DX: L03.116 Cellulitis of left lower limb (principal); I48.1 Persistent atrial fibrillation; E66.9 Obesity, unspecified; Z68.39 Body mass index [BMI] 39.0-39.9, adult; I12.9 Hypertensive chronic kidney disease with stage 1 through stage 4 chronic kidney disease, or unspecified chronic kidney disease; E11.22 Type 2 diabetes mellitus with diabetic chronic kidney disease; N18.3 Chronic kidney disease, stage 3 (moderate); E78.5 Hyperlipidemia, unspecified; Z87.891 Personal history of nicotine dependence; Z79.01 Long term (current) use of anticoagulants; L02.415 Cutaneous abscess of right lower limb
CPT/HCPCS: 10060; 36415; 36591; 80048; 81001; 82962; 83036; 84145; 85025; 85610; 85730; 87040; 87070; 87205; 87797; 99282; 99283; J0696

== ENCOUNTER 2019-07-02 12:26 | Inpatient (IN) | payer MEDICARE, SELFPAY ==
[2018-12-09 01:27] VITALS: BMI 39.1
[2019-07-02 12:32] VITALS: BP 142/63; PULSE 66; RESP 18; O2SAT 98
--- NOTE | 2019-07-02 12:33 | DI.RAD.S_ITS ---
PROCEDURE: XR CHEST 1V INDICATIONS: sob TECHNIQUE: One view of the chest was acquired. COMPARISON: None. FINDINGS: Surgical changes and devices: None. Lungs and pleura: Lungs are clear. No pleural effusions or pneumothorax. Mediastinum: Mediastinal contours appear normal. Heart is enlarged. Bones and chest wall: No suspicious bony lesions. Overlying soft tissues appear unremarkable. Lucency is noted in the mid right clavicle which may represent subacute fracture. IMPRESSION: 1. No acute cardiopulmonary disease process. 2. Lucency in the right mid clavicle which could represent artifact or subacute nondisplaced fracture. Recommend dedicated right clavicular x-ray series. Dictated by: Kelly Gates MD, PhD on 07/02/2019 at 12:09 Approved by: Kelly Gates MD, PhD on 07/02/2019 at 12:22
--- NOTE | 2019-07-02 12:57 | ED_ITS ---
HPI - Wound/Laceration General Chief Complaint: Wound/Laceration Stated Complaint: Wound Eval/hypox Time Seen by Provider: 07/02/19 12:33 Source: patient and EMS Mode of arrival: EMS Limitations: no limitations History of Present Illness HPI narrative: The patient is a 83-year-old male with history of insulin-depend ent diabetes coming [place] [facility] from [facility] presenting with worsening cellulitis of his lower extremities and hypoxia. He was actually seen evaluated there at initially for worsening cellulitis his left leg is draining much more than it used to, but his legs have overall been red for some time. He denies any shortness of breath or chest pain. [facility] states that on room air he was 88% he was put on 4 L and O2 increased. With very minimal movement his oxygen level decreased. He states that he may have noticed more shortness of breath with exertion but his main concern is his legs. He denies any fever no abdominal pain. Related Data Home Medications Medication Instructions Recorded Confirmed B1/B2/NIACIN/B12/PROTEASE 1 tab PO DAILY #0 02/26/12 07/02/19 (B-Complex With B-12 Tablet) Lantus U-100 Insulin 16 unit SQ QAM #0 02/26/12 07/02/19 glipizide 5 mg PO DAILY #0 02/26/12 07/02/19 rosuvastatin [Crestor] 10 mg PO QPM #0 02/26/12 07/02/19 Magnesium (oxide/AA chelate) 1 tab PO QAM 12/09/18 07/02/19 Super Cranberry 1 tab PO QAM 12/09/18 07/02/19 amiodarone 100 mg PO DAILY 12/09/18 07/02/19 cholecalciferol (vitamin D3) 1,000 unit PO DAILY 12/09/18 07/02/19 [Vitamin D3] furosemide 40 mg PO DAILY 12/09/18 07/02/19 hydralazine 10 mg PO TID 12/09/18 07/02/19 isosorbide mononitrate 30 mg PO DAILY 12/09/18 07/02/19 oxymetazoline 2 spray INTRANASAL PRN PRN 12/09/18 07/02/19 potassium chloride 20 meq PO DAILY 12/09/18 07/02/19 tamsulosin 0.4 mg PO QPM 12/09/18 07/02/19 apixaban [Eliquis] 2.5 mg PO BID 07/02/19 07/02/19 hydrocortisone valerate 1 applic TOPICAL DAILY 07/02/19 07/02/19 insulin glargine [Lantus Solostar 16 unit SUBCUT DAILY 07/02/19 07/02/19 U-100 Insulin] mupirocin 1 applic TOPICAL TID 07/02/19 07/02/19 Allergies Allergy/AdvReac Type Severity Reaction Status Date / Time hydralazine Allergy Verified 07/02/19 12:42 hydrocodone Allergy Verified 07/02/19 12:42 isradipine Allergy Verified 07/02/19 12:42 atorvastatin AdvReac Verified 07/02/19 12:42 morphine AdvReac Verified 07/02/19 12:42 tramadol AdvReac Verified 07/02/19 12:42 Review of Systems Review of Systems ROS Unobtainable: All systems reviewed & are unremarkable except as noted in HPI and below Constitutional Constitutional: Denies chills, Denies fever(s), Denies lethargy and Denies weakn ess Cardiovascular Cardiovascular: Denies chest pain, Denies irregular heart rhythm, Denies lightheadedness, Denies palpitations and Denies orthopnea Respiratory Respiratory: Reports as per HPI Gastrointestinal Gastrointestinal: Denies abdominal pain, Denies change in bowel habits, Denies diarrhea, Denies nausea and Denies vomiting Genitourinary Genitourinary: Denies hematuria, Denies flank pain, Denies urinary incontinence and Denies urinary urgency Musculoskeletal Musculoskeletal: Denies back pain, Denies muscle weakness, Denies numbness and Denies tingling Integumentary/Breasts Skin/Breast: Reports system reviewed and no additional complaints, except as docu and Reports as per HPI Neurologic Neurologic: Denies confusion, Denies numbness, Denies tingling and Denies weakness Psychiatric Psychiatric: Denies anxiety, Denies confusion, Denies depression, Denies homicidal ideation and Denies suicidal ideation Endocrine Endocrine: Denies palpitations Patient History Medical History Atrial fibrillation (Acute) Diabetes (Acute) Hyperlipidemia (Acute) Hypertension (Acute) Osteoarthritis (Acute) Surgical History History of aortic valve replacement (Acute) History of back surgery (Acute) History of inguinal hernia repair (Acute) History of spinal fusion (Acute) History of total left hip arthroplasty (Acute) History of total right knee replacement (Acute) Social History household members: spouse Smoking Status: Former smoker Social History household members: spouse Smoking Status: Former smoker alcohol intake frequency: holidays/special occasions only Substance Use Type: does not use Exam Initial Vital Signs Initial Vital Signs: Vital Signs Pulse Rate 66 07/02/19 12:32 Respiratory Rate 18 07/02/19 12:32 Blood Pressure 142/63 H 07/02/19 12:32 Pulse Oximetry 98 07/02/19 12:32 GENERAL: Well-appearing, well-nourished and in no acute distress. HEENT: Head atraumatic,EOMI, pupils reactive, face symmetric CARDIOVASCULAR: Regular rate and rhythm without murmurs, rubs or gallops. RESPIRATORY: Breath sounds equal bilaterally, no wheezes rales or rhonchi. ABDOMEN: Soft, nontender. Normoactive bowel sounds all 4 quadrants. No guarding or rebound. EXTREMITIES: Normal range of motion, no clubbing or edema. Neurovascularly intact NEUROLOGICAL: Alert and oriented x4.Normal gait and speech. Cranial nerves II through XII grossly intact. SKIN: Lower extremity erythema to about mid del angel. His left leg is draining foul smell quite a bit. Course Orders Ordered: ED Orders 07/02/19 12:33 XR chest 1V Stat 07/02/19 14:00 B Type Natriuretic Peptide Stat Complete Blood Count AUTO DIFF Stat Comprehensive Metabolic Panel Stat Lactate (Lactic Acid) Stat Partial Thromboplastin Time Stat Procalcitonin Stat Prothrombin Time INR Stat Troponin & CK Cardiac Panel Stat 07/02/19 14:05 Blood Culture Stat 07/02/19 15:08 Wound Culture and Gram Stain Stat Acetaminophen (Tylenol) 650 mg PO Q6HR PRN PRN Reason: As Needed for Fever/Mild Pain Amiodarone HCl (Pacerone) 100 mg PO DAILY STEPHEN Apixaban (Eliquis) 2.5 mg PO BID STEPHEN Furosemide (Lasix) 40 mg PO DAILY STEPHEN Glipizide (Glucotrol) 5 mg PO DAILY [facility] Hydralazine HCl (Apresoline) 10 mg PO TID [facility] Hydrocortisone (Hydrocortisone 2.5% Cream) 1 applic TOP DAILY STEPHEN Vancomycin HCl/Dextrose (Vancomycin) 750 mg in 150 mls @ 150 mls/hr IV Q24H [facility] Insulin Glargine (Lantus Solostar (Pen)) 16 unit SUBCUT DAILY [facility] Isosorbide Mononitrate (Imdur) 30 mg PO DAILY [facility] Magnesium Oxide (Mag Ox) 400 mg PO DAILY STEPHEN Mupirocin (Bactroban Oint) 1 applic TOP TID STEPHEN Oxymetazoline HCl (Afrin) 2 sprays NASAL BID PRN PRN Reason: Nasal Congestion Potassium Chloride (Klor-Con M10) 20 meq PO DAILY [facility] Tamsulosin HCl (Flomax) 0.4 mg PO QPM STEPHEN Vancomycin HCl (Vancomycin Trough) 1 request MISC NOW ONE Stop: 07/05/19 17:31 Vitamin D (Vitamin D3) 1,000 unit PO DAILY [facility] Discontinued Medications Furosemide (Lasix) 40 mg IV NOW ONE Stop: 07/02/19 14:52 Last Admin: 07/02/19 15:19 Dose: 40 mg Documented by: VIVI Ceftriaxone Sodium/Dextrose (Rocephin) 1 gm in 50 mls @ 100 mls/hr IV NOW ONE Stop: 07/02/19 15:21 Last Infusion: 07/02/19 16:21 Dose: 0 mls/hr Documented by: Admin: 07/02/19 15:20 Dose: 100 mls/hr Documented by: VIVI Vancomycin HCl/Dextrose (Vancomycin) 1,500 mg in 300 mls @ 200 mls/hr IV NOW ONE Stop: 07/02/19 16:21 Last Admin: 07/02/19 16:15 Dose: 200 mls/hr Documented by: VIVI Vancomycin HCl (Vancomycin Per Pharmacy) 1 request MISC NOW ONE Stop: 07/02/19 15:45 Last Admin: 07/02/19 18:37 Dose: Not Given Documented by: SAWYER Vital Signs Vital signs: Vital Signs - 8 hr 07/02/19 12:32 07/02/19 14:44 Pulse Rate 66 59 L Respiratory Rate 18 18 Blood Pressure 142/63 H Pulse Oximetry 98 97 MDM - Wound/Laceration Lab Data Attestation: I reviewed the patient's lab results. Result diagrams: 07/02/19 14:00 07/02/19 14:00 Labs: Lab Results 07/02/19 07/02/19 07/02/19 Range/Units 14:00 14:00 14:00 WBC 10.0 (4.5-11.0) X10^3/uL RBC 3.64 L (4.5-5.9) X10^6/uL Hgb 12.2 L (13.5-17.5) g/dL Hct 38.0 L (41-53) % MCV 104.4 H (80-100) fL MCH 33.4 (26-34) PG MCHC 32.0 (30-36) % RDW 15.9 H (11.6-14.8) % Plt Count 94 L (150-400) X10^3/uL Neut % (Auto) 80.5 H (50-75) % Lymph % (Auto) 6.3 L (25-40) % [place] % (Auto) 12.5 (3-14) % Eos % (Auto) 0.1 L (2-4) % Baso % (Auto) 0.6 (0-2) % Neut # (Auto) 8000 H (4890-6247) /uL Lymph # (Auto) 600 L (7717-7352) /uL [place] # (Auto) 1200 H (0-900) /uL Eos # (Auto) 0 (0-450) /uL Baso # (Auto) 100 (0-100) /uL PT 19.9 H (10.1-12.7) SECONDS INR 1.7 H (0.9-1.3) APTT 34 D (26.4-36.2) SECONDS Sodium 140 (137-145) mmol/L Potassium 5.3 H (3.4-5.1) mmol/L Chloride 100 (98-107) mmol/L Carbon Dioxide 35 H (22-32) mmol/L BUN 53 H (9-20) mg/dL Creatinine 2.10 H (0.66-1.25) mg/dL Estimated GFR 30.2 L (>60) mL/min BUN/Creatinine Ratio 25.2 H (6-22) Glucose 89 (80-110) mg/dL Lactate (0.7-2.1) mmol/L Calcium 9.2 (8.4-10.2) mg/dL Total Bilirubin 0.8 (0.2-1.3) mg/dL AST 28 (17-59) IU/L ALT 27 (21-72) IU/L Alkaline Phosphatase 98 (38-126) U/L Total Creatine Kinase 59 (55-170) U/L CK-MB (CK-2) TNP CK-MB (CK-2) Rel Index TNP Troponin I 0.114 H (0.01-0.034) ng/mL B-Natriuretic Peptide 786 H (<100) Total Protein 6.3 (6.3-8.2) g/dL Albumin 3.3 L (3.5-5.0) g/dL Globulin 3.0 (1.7-4.1) g/dL Albumin/Globulin Ratio 1.1 (1.0-2.8) Procalcitonin (<0.5) ng/mL 07/02/19 07/02/19 Range/Units 14:00 14:00 WBC (4.5-11.0) X10^3/uL RBC (4.5-5.9) X10^6/uL Hgb (13.5-17.5) g/dL Hct (41-53) % MCV (80-100) fL MCH (26-34) PG MCHC (30-36) % RDW (11.6-14.8) % Plt Count (150-400) X10^3/uL Neut % (Auto) (50-75) % Lymph % (Auto) (25-40) % [place] % (Auto) (3-14) % Eos % (Auto) (2-4) % Baso % (Auto) (0-2) % Neut # (Auto) (3058-7192) /uL Lymph # (Auto) (7735-8453) /uL [place] # (Auto) (0-900) /uL Eos # (Auto) (0-450) /uL Baso # (Auto) (0-100) /uL PT (10.1-12.7) SECONDS INR (0.9-1.3) APTT (26.4-36.2) SECONDS Sodium (137-145) mmol/L Potassium (3.4-5.1) mmol/L Chloride (98-107) mmol/L Carbon Dioxide (22-32) mmol/L BUN (9-20) mg/dL Creatinine (0.66-1.25) mg/dL Estimated GFR (>60) mL/min BUN/Creatinine Ratio (6-22) Glucose (80-110) mg/dL Lactate 0.9 (0.7-2.1) mmol/L Calcium (8.4-10.2) mg/dL Total Bilirubin (0.2-1.3) mg/dL AST (17-59) IU/L ALT (21-72) IU/L Alkaline Phosphatase (38-126) U/L Total Creatine Kinase (55-170) U/L CK-MB (CK-2) CK-MB (CK-2) Rel Index Troponin I (0.01-0.034) ng/mL B-Natriuretic Peptide (<100) Total Protein (6.3-8.2) g/dL Albumin (3.5-5.0) g/dL Globulin (1.7-4.1) g/dL Albumin/Globulin Ratio (1.0-2.8) Procalcitonin 0.23 (<0.5) ng/mL Imaging Data Chest x-ray: Radiologist's impression: PROCEDURE: XR CHEST 1V INDICATIONS: sob TECHNIQUE: One view of the chest was acquired. COMPARISON: None. FINDINGS: Surgical changes and devices: None. Lungs and pleura: Lungs are clear. No pleural effusions or pneumothorax. Mediastinum: Mediastinal contours appear normal. Heart is enlarged. Bones and chest wall: No suspicious bony lesions. Overlying soft tissues appear unremarkable. Lucency is noted in the mid right clavicle which may represent subacute fracture. IMPRESSION: 1. No acute cardiopulmonary disease process. 2. Lucency in the right mid clavicle which could represent artifact or subacute nondisplaced fracture. Recommend dedicated right clavicular x-ray series. Dictated by: Kelly Gates MD, PhD on 07/02/2019 at 12:09 [facility] Narrative Medical decision making narrative: Patient has gross clear drainage from his left leg with foul smell. Leg seems to be chronically erythematous. His oxygen has been weaned down he does not seem in acute respiratory distress. However his stroke is indeterminate with elevated BNP of 700. He has a history of CHF requiring diuresis. He is on Eliquis I do not suspect any pulmonary embolism. Procalcitonin lactic acid and WBC are within normal limits he does not appear septic. Wound culture is pending. Potassium and creatinine also mildly elevated and unclear baseline is. Madie, updated on patient symptoms test results agrees with admission Discharge Plan Departure Patient Disposition: Admitted As Inpatient Clinical Impression: Cellulitis Qualifiers: Site of cellulitis: extremity Site of cellulitis of extremity: lower extremity Laterality: unspecified laterality Qualified Code(s): L03.119 - Cellulitis of unspecified part of limb CHF (congestive heart failure) Qualifiers: Heart failure type: other Qualified Code(s): I50.9 - Heart failure, unspecified Discharge Date/Time: 07/02/19 16:10 Admit Date/Time: 07/02/19 15:23 Admit Provider: Lizzette Lua
[2019-07-02 14:16] LABS: Add Manual Diff / Slide Review NO; Basophils Absolute Auto 100 /uL (0-100); Basophils Percent Auto 0.6 % (0-2); Eosinophils Absolute Auto 0 /uL (0-450); Eosinophils Percent Auto 0.1 % (2-4); Hemoglobin 12.2 g/dL (13.5-17.5); Lymphocytes Absolute Auto 600 /uL (1100-4500); Lymphocytes Percent Auto 6.3 % (25-40); Mean Corpuscular Hemoglobin 33.4 PG (26-34); Mean Corpuscular Volume 104.4 fL (80-100); Monocytes Absolute Auto 1200 /uL (0-900); Monocytes Percent Auto 12.5 % (3-14); Neutrophils Absolute Auto 8000 /uL (1500-7000); Neutrophils Percent Auto 80.5 % (50-75); Platelet Count 94 X10^3/uL (150-400); Red Blood Cell Count 3.64 X10^6/uL (4.5-5.9); Red Cell Distribution Width 15.9 % (11.6-14.8)
[2019-07-02 14:20] LABS: INR 1.7 (0.9-1.3); Prothrombin Time 19.9 SECONDS (10.1-12.7)
[2019-07-02 14:23] LABS: PTT Partial Thromboplastin Tim 34 SECONDS (26.4-36.2)
[2019-07-02 14:29] LABS: Alanine Aminotransferase 27 IU/L (21-72); Albumin 3.3 g/dL (3.5-5.0); Albumin Globulin Ratio 1.1 (1.0-2.8); Alkaline Phosphatase 98 U/L (38-126); Aspartate Aminotransferase 28 IU/L (17-59); BUN Creatinine Ratio 25.2 (6-22); Bilirubin Total 0.8 mg/dL (0.2-1.3); Blood Urea Nitrogen 53 mg/dL (9-20); Calcium 9.2 mg/dL (8.4-10.2); Carbon Dioxide 35 mmol/L (22-32); Chloride 100 mmol/L (98-107); Creatine Kinase 59 U/L (55-170); Estimated Glomerular Filt Rate 30.2 mL/min (>60); Glucose 89 mg/dL (80-110); HEMOLYSIS < 15 (0-50); Potassium 5.3 mmol/L (3.4-5.1); Sodium 140 mmol/L (137-145); Total Protein 6.3 g/dL (6.3-8.2)
[2019-07-02 14:30] LABS: Lactate (Lactic Acid) 0.9 mmol/L (0.7-2.1)
[2019-07-02 14:41] LABS: Troponin I 0.114 ng/mL (0.01-0.034)
[2019-07-02 14:44] VITALS: PULSE 59; RESP 18; O2SAT 97
[2019-07-02 14:47] LABS: B Type Natriuretic Peptide 786 (<100); Procalcitonin 0.23 ng/mL (<0.5)
[2019-07-02] MEDS: FUROSEMIDE 40 MG/4 ML VIAL IV (15:19)
[2019-07-02] MEDS: CEFTRIAXONE 1 GM/50 ML FROZ.PIGGY IV (15:20)
--- NOTE | 2019-07-02 16:11 | PC.NURSE ---
Report called to ROHIT Ivy.
[2019-07-02] MEDS: VANCOMYCIN 1,500 MG/300 ML FROZ.PIGGY 200 MG IV (16:15)
--- NOTE | 2019-07-02 16:29 | PM.HP.1 ---
History of Present Illness History of Present Illness Date Patient Seen: 07/02/19 Time Patient Seen: 16:30 Chief complaint: Wound Eval/hypox Narrative: This is an 83 year old male with bilateral leg cellulitis and hypoxia. He is also in Congestive Heart Failure. He comes over from [facility] after a physician visit this morning for leg ulcers where he says his primary care suggested that he needed inpatient wound care. On arrival to our emergency department he was noted to be hypoxic with a saturation of 88% on room air. 1 L of nasal cannula oxygen recovered him into the 90s but with any exertion he continued to drop into the 80s. His troponin is 0.114 with a procalcitonin of 0.2 and a BNP of 786. He has been started on Lasix along with antibiotics. He has not had cellulitis of his legs before. He has felt febrile and thinks his temperature has reached 99.6 at home but he is unclear about how long the legs have been red. He has fallen recently. His is disabled by her own fall and clavicle fracture at home now. He is very concerned that he receive a urinary catheter if he is going to be on Lasix. He has no symptoms to suggest ischemia other than the hypoxia and has chronic kidney disease to a point that would also be expected to contribute to an elevated troponin. There is no significant pulmonary edema or infiltrate on chest x-ray. Patient History Medical History Atrial fibrillation (Acute) Diabetes (Acute) Hyperlipidemia (Acute) Hypertension (Acute) Osteoarthritis (Acute) Surgical History History of aortic valve replacement (Acute) History of back surgery (Acute) History of inguinal hernia repair (Acute) History of spinal fusion (Acute) History of total left hip arthroplasty (Acute) History of total right knee replacement (Acute) Social History household members: spouse Smoking Status: Former smoker Family & Social History Social History: household members spouse Safety & Behavioral: Feels Safe in Current Yes Environment Been Physically Hurt or No Threatened By a Person Tobacco & Substance use: Smoking Status Former smoker alcohol intake frequency holiday/special occasion Substance Use Type does not use Comment: 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 His primary care is Dr. Clark. His would be his backup power of corporate associate attorney/decision maker. Meds Home Medications and Allergies Home Medications Medication Instructions Recorded Confirmed Type B1/B2/NIACIN/B12/PROTEASE 1 tab PO DAILY #0 02/26/12 07/02/19 History (B-Complex With B-12 Tablet) Lantus U-100 Insulin 16 unit SQ QAM #0 02/26/12 07/02/19 History glipizide 5 mg PO DAILY #0 02/26/12 07/02/19 History rosuvastatin [Crestor] 10 mg PO QPM #0 02/26/12 07/02/19 History Magnesium (oxide/AA chelate) 1 tab PO QAM 12/09/18 07/02/19 History Super Cranberry 1 tab PO QAM 12/09/18 07/02/19 History amiodarone 100 mg PO DAILY 12/09/18 07/02/19 History cholecalciferol (vitamin D3) 1,000 unit PO DAILY 12/09/18 07/02/19 History [Vitamin D3] furosemide 40 mg PO DAILY 12/09/18 07/02/19 History hydralazine 10 mg PO TID 12/09/18 07/02/19 History isosorbide mononitrate 30 mg PO DAILY 12/09/18 07/02/19 History oxymetazoline 2 spray INTRANASAL PRN PRN 12/09/18 07/02/19 History potassium chloride 20 meq PO DAILY 12/09/18 07/02/19 History tamsulosin 0.4 mg PO QPM 12/09/18 07/02/19 History apixaban [Eliquis] 2.5 mg PO BID 07/02/19 07/02/19 History hydrocortisone valerate 1 applic TOPICAL DAILY 07/02/19 07/02/19 History insulin glargine [Lantus Solostar 16 unit SUBCUT DAILY 07/02/19 07/02/19 History U-100 Insulin] mupirocin 1 applic TOPICAL TID 07/02/19 07/02/19 History Allergies Allergy/AdvReac Type Severity Reaction Status Date / Time hydralazine Allergy Verified 07/02/19 12:42 hydrocodone Allergy Verified 07/02/19 12:42 isradipine Allergy Verified 07/02/19 12:42 atorvastatin AdvReac Verified 07/02/19 12:42 morphine AdvReac Verified 07/02/19 12:42 tramadol AdvReac Verified 07/02/19 12:42 Review of Systems Review of Systems Narrative: Positive for leg pain, mild dyspnea, weakness. Negative for fevers, chills, sweats, nausea, vomiting, abdominal pain, chest pain, jaundice, seizures, sore throat, coughing, bleeding. Exam Vital Signs (past 8 hours): - 07/02/19 12:32 07/02/19 14:44 Pulse Rate 66 59 L Respiratory Rate 18 18 Blood Pressure 142/63 H Pulse Oximetry 98 97 Oxygen Delivery Method Nasal Cannula Oxygen Flow Rate 1 Narrative Exam Narrative: He is alert and oriented x3. No apparent distress. He looks very, very weak. There are scars from the top of his back to the bottom of his back along the spine. There are is a sternotomy scar present. The bilateral cavus are reddened with shallow ulcers and are tender to palpation. The left calf is larger than the right calf. There are bruises on the back of his hands. Pupils are equally round and reactive to light and accommodation. Extraocular muscles are intact. Sclerae are pink and nonicteric. Throat looks normal. No lymph nodes are felt head, neck, supraclavicular area. JVD is less 6 cm. There are no carotid bruits heard. There is no thyromegaly. Heart is regular rate and rhythm without murmur. Lungs are clear to auscultation bilaterally. Abdomen is soft bowel sounds positive, nontender, no organomegaly. Extremities without significant edema. Skin see above. Neuro exam diffusely weak 4/5 throughout. Deep tendon reflexes are symmetric. Gait and balance are not tested. There is no tremor. Objective Labs Result Diagrams: 07/02/19 14:00 07/02/19 14:00 Labs: Laboratory Results - last 24 hr 07/02/19 07/02/19 07/02/19 14:00 14:00 14:00 WBC 10.0 RBC 3.64 L Hgb 12.2 L Hct 38.0 L MCV 104.4 H MCH 33.4 MCHC 32.0 RDW 15.9 H Plt Count 94 L Neut % (Auto) 80.5 H Lymph % (Auto) 6.3 L [place] % (Auto) 12.5 Eos % (Auto) 0.1 L Baso % (Auto) 0.6 Neut # (Auto) 8000 H Lymph # (Auto) 600 L [place] # (Auto) 1200 H Eos # (Auto) 0 Baso # (Auto) 100 PT 19.9 H INR 1.7 H APTT 34 D Sodium 140 Potassium 5.3 H Chloride 100 Carbon Dioxide 35 H BUN 53 H Creatinine 2.10 H Estimated GFR 30.2 L BUN/Creatinine Ratio 25.2 H Glucose 89 Lactate Calcium 9.2 Total Bilirubin 0.8 AST 28 ALT 27 Alkaline Phosphatase 98 Total Creatine Kinase 59 CK-MB (CK-2) TNP CK-MB (CK-2) Rel Index TNP Troponin I 0.114 H B-Natriuretic Peptide 786 H Total Protein 6.3 Albumin 3.3 L Globulin 3.0 Albumin/Globulin Ratio 1.1 Procalcitonin 07/02/19 07/02/19 14:00 14:00 WBC RBC Hgb Hct MCV MCH MCHC RDW Plt Count Neut % (Auto) Lymph % (Auto) [place] % (Auto) Eos % (Auto) Baso % (Auto) Neut # (Auto) Lymph # (Auto) [place] # (Auto) Eos # (Auto) Baso # (Auto) PT INR APTT Sodium Potassium Chloride Carbon Dioxide BUN Creatinine Estimated GFR BUN/Creatinine Ratio Glucose Lactate 0.9 Calcium Total Bilirubin AST ALT Alkaline Phosphatase Total Creatine Kinase CK-MB (CK-2) CK-MB (CK-2) Rel Index Troponin I B-Natriuretic Peptide Total Protein Albumin Globulin Albumin/Globulin Ratio Procalcitonin 0.23 Assessment & Plan Assessment & Plan narrative: Bilateral Calf Ulcers/cellulitis -Continue IV Vancomycin and Ceftriaxone -LE US ordered due to asymmetric calf sizes Atrial Fibrillation -Continue Eliquis and Amiodarone -INR is 1.7 Congestive Heart Failure -Continue IV Lasix Diabetes Mellitus 2 -Continue Lantus and Glipizide and follow blood sugars. Hypertension -Continue Hydralazine and Isosorbide Hyperlipidemia -Continue Crestor Elevated Troponin -Presumably secondary to LEANN/CKD -Repeat Troponin in the AM -Consider Heparin Drip for NSTEMI if troponin rises or if he develops chest pain. BPH -Continue Tamsulosin Code Status -He is very clear that he is DNR.
[2019-07-02 17:25] VITALS: BMI 37.8
[2019-07-02 17:27] VITALS: BP 132/78; PULSE 60; RESP 19; TEMP 36.8; O2SAT 95
[2019-07-02] MEDS: TAMSULOSIN 0.4 MG CAPSULE PO (19:02)
[2019-07-02 20:15] VITALS: PULSE 58; O2SAT 92
[2019-07-02] MEDS: HYDRALAZINE 10 MG TABLET PO (21:10)
[2019-07-02] MEDS: MUPIROCIN 22 GM OINT 1 APPLIC TOP (21:11)
[2019-07-02] MEDS: APIXABAN 5 MG TABLET 2.5 MG PO (21:11)
[2019-07-02] MEDS: NYSTATIN POWDER 15GM 1 APPLIC TOP (21:14)
[2019-07-02 23:00] VITALS: O2SAT 94
--- NOTE | 2019-07-02 23:36 | PC.NURSE ---
Admit/Evening Shift Note- Patient arrived to room from ER via stretcher. Patient able to stand and pivot from stretcher to bed. Admission questions completed, home medications reviewed, and physical assessment done. Oriented patient to bed and bed controls, room , lights, phone, menu, and call thompson/tv remote. safety measures in place. Patient agrees to call for assistance. bed alarm activated. call thompson and phone within reach. will continue to monitor.
[2019-07-03] VITALS (16 sets, daily range): BP systolic 107–131; BP diastolic 56–73; PULSE 58–84; RESP 16–24; TEMP 36.2–37.2; O2SAT 86–97
--- NOTE | 2019-07-03 04:37 | PC.NURSE ---
Addendum entered by Christine Carias R.N. 07/03/19 05:42: BS: 60. Pt given some yogurt. Original Note: Pt VSS, on 2 liters O2 NC, with O2 saturation of 94% on this shift. Pt is short of breath on exertion and while at rest. Pt has bilateral lower leg pain 7/10, and is complaining of back pain. Pt had 650 mg of tylenol at 0445. Pt lung sounds are clear and diminished in the bases bilaterally. Pt is on tele: NS 1st degree AV BBB. Pt is complaining about back spasms, will speak w/ the hospitalist about this.
[2019-07-03] MEDS: ACETAMINOPHEN 325 MG TABLET 650 MG PO (04:41)
[2019-07-03 06:28] LABS: Add Manual Diff / Slide Review NO; Basophils Absolute Auto 0 /uL (0-100); Basophils Percent Auto 0.5 % (0-2); Eosinophils Absolute Auto 200 /uL (0-450); Eosinophils Percent Auto 1.7 % (2-4); Hematocrit 36.8 % (41-53); Hemoglobin 11.9 g/dL (13.5-17.5); Lymphocytes Absolute Auto 500 /uL (1100-4500); Lymphocytes Percent Auto 5.8 % (25-40); Mean Corpuscular HGB Conc 32.4 % (30-36); Mean Corpuscular Hemoglobin 33.7 PG (26-34); Monocytes Absolute Auto 1100 /uL (0-900); Monocytes Percent Auto 11.3 % (3-14); Neutrophils Absolute Auto 7600 /uL (1500-7000); Neutrophils Percent Auto 80.7 % (50-75); Platelet Count 90 X10^3/uL (150-400); Red Blood Cell Count 3.54 X10^6/uL (4.5-5.9); Red Cell Distribution Width 15.6 % (11.6-14.8); White Blood Cell Count 9.4 X10^3/uL (4.5-11.0)
[2019-07-03] MEDS: LORazepam 1 MG TABLET 2 MG PO (06:42)
[2019-07-03 06:43] LABS: Blood Urea Nitrogen 56 mg/dL (9-20); Calcium 9.3 mg/dL (8.4-10.2); Carbon Dioxide 32 mmol/L (22-32); Chloride 101 mmol/L (98-107); Glucose 152 mg/dL (80-110); HEMOLYSIS < 15 (0-50); Potassium 4.4 mmol/L (3.4-5.1); Sodium 140 mmol/L (137-145)
[2019-07-03 06:54] LABS: B Type Natriuretic Peptide 405 (<100); Troponin I 0.081 ng/mL (0.01-0.034)
[2019-07-03 06:58] LABS: Procalcitonin 0.22 ng/mL (<0.5)
[2019-07-03] MEDS: INSULIN GLARGINE 100 UNIT/ML 3ML PEN 16 UNIT SUBCUT (10:15)
[2019-07-03] MEDS: APIXABAN 5 MG TABLET 2.5 MG PO ×2 (10:24→21:41)
[2019-07-03] MEDS: CHOLECALCIFEROL (VITAMIN D3) 1,000 UNIT TABLET 1000 UNIT PO (10:26)
[2019-07-03] MEDS: FUROSEMIDE 40 MG TABLET PO (10:26)
[2019-07-03] MEDS: HYDRALAZINE 10 MG TABLET PO ×3 (10:29→21:41)
[2019-07-03] MEDS: POTASSIUM CHLORIDE 10 MEQ TAB 20 MEQ PO (10:30)
[2019-07-03] MEDS: MAGNESIUM OXIDE 400 MG TABLET PO (10:30)
[2019-07-03] MEDS: ISOSORBIDE MONONITRATE ER 30 MG TABLET PO (10:34)
[2019-07-03] MEDS: METHOCARBAMOL 500 MG TABLET PO (10:36)
[2019-07-03] MEDS: HYDROCORTISONE 2.5% CREAM 30 GM 1 APPLIC TOP (10:37)
--- NOTE | 2019-07-03 11:26 | PM.PN.1 ---
Subjective Subjective Date Patient Seen: 07/03/19 Time Patient Seen: 11:26 Interval history: He is seen today to follow-up his bilateral calf ulcers and skin infection, atrial fibrillation, congestive heart failure, diabetes mellitus type 2, hypertension, hyperlipidemia, elevated troponin and BPH. He remains quite weak and complains of back spasms today that he blames on his ambulance/airplane ride over to the hospital from his [facility] home yesterday. The procalcitonin is 0.22 with a troponin down to 0.081 and a BNP dropping from 786 to 405. He will be getting physical therapy and occupational therapy today. His creatinine has remained stable at 2.0 with a BUN of 56. He is asking for a muscle relaxer and pain medicine for his back. Exam Vital Signs (past 8 hours): - 07/03/19 06:01 07/03/19 07:26 07/03/19 08:00 Temperature 97.9 F 98.2 F Pulse Rate 59 L 59 L Respiratory Rate 16 18 Blood Pressure 108/56 L 107/56 L Pulse Oximetry 91 93 93 07/03/19 08:50 Temperature Pulse Rate Respiratory Rate Blood Pressure Pulse Oximetry 92 Oxygen Delivery Method Nasal Cannula Oxygen Flow Rate 2 Narrative Exam Narrative: He is alert and oriented x3. He appears to be in mild distress from back pain. Nothing palpably abnormal or tender and the paraspinal area thoracic and lumbar. Heart is regular rate and rhythm with a 2/6 holosystolic murmur. Lungs are clear to auscultation bilaterally. 2+ pitting ankle edema is present bilaterally. The rash and ulcerations on the legs appear to be improving. Objective Labs Result Diagrams: 07/03/19 06:04 07/03/19 06:04 Labs: Laboratory Results - last 24 hr 07/02/19 07/02/19 07/02/19 14:00 14:00 14:00 WBC 10.0 RBC 3.64 L Hgb 12.2 L Hct 38.0 L MCV 104.4 H MCH 33.4 MCHC 32.0 RDW 15.9 H Plt Count 94 L Neut % (Auto) 80.5 H Lymph % (Auto) 6.3 L [place] % (Auto) 12.5 Eos % (Auto) 0.1 L Baso % (Auto) 0.6 Neut # (Auto) 8000 H Lymph # (Auto) 600 L [place] # (Auto) 1200 H Eos # (Auto) 0 Baso # (Auto) 100 PT 19.9 H INR 1.7 H APTT 34 D Sodium 140 Potassium 5.3 H Chloride 100 Carbon Dioxide 35 H BUN 53 H Creatinine 2.10 H Estimated GFR 30.2 L BUN/Creatinine Ratio 25.2 H Glucose 89 Lactate Calcium 9.2 Total Bilirubin 0.8 AST 28 ALT 27 Alkaline Phosphatase 98 Total Creatine Kinase 59 CK-MB (CK-2) TNP CK-MB (CK-2) Rel Index TNP Troponin I 0.114 H B-Natriuretic Peptide 786 H Total Protein 6.3 Albumin 3.3 L Globulin 3.0 Albumin/Globulin Ratio 1.1 Procalcitonin 07/02/19 07/02/19 07/03/19 14:00 14:00 06:04 WBC 9.4 RBC 3.54 L Hgb 11.9 L Hct 36.8 L MCV 104.0 H MCH 33.7 MCHC 32.4 RDW 15.6 H Plt Count 90 L Neut % (Auto) 80.7 H Lymph % (Auto) 5.8 L [place] % (Auto) 11.3 Eos % (Auto) 1.7 L Baso % (Auto) 0.5 Neut # (Auto) 7600 H Lymph # (Auto) 500 L [place] # (Auto) 1100 H Eos # (Auto) 200 Baso # (Auto) 0 PT INR APTT Sodium Potassium Chloride Carbon Dioxide BUN Creatinine Estimated GFR BUN/Creatinine Ratio Glucose Lactate 0.9 Calcium Total Bilirubin AST ALT Alkaline Phosphatase Total Creatine Kinase CK-MB (CK-2) CK-MB (CK-2) Rel Index Troponin I B-Natriuretic Peptide 405 H Total Protein Albumin Globulin Albumin/Globulin Ratio Procalcitonin 0.23 07/03/19 07/03/19 06:04 06:04 WBC RBC Hgb Hct MCV MCH MCHC RDW Plt Count Neut % (Auto) Lymph % (Auto) [place] % (Auto) Eos % (Auto) Baso % (Auto) Neut # (Auto) Lymph # (Auto) [place] # (Auto) Eos # (Auto) Baso # (Auto) PT INR APTT Sodium 140 Potassium 4.4 Chloride 101 Carbon Dioxide 32 BUN 56 H Creatinine 2.00 H Estimated GFR 32.0 L BUN/Creatinine Ratio 28.0 H Glucose 152 H Lactate Calcium 9.3 Total Bilirubin AST ALT Alkaline Phosphatase Total Creatine Kinase CK-MB (CK-2) CK-MB (CK-2) Rel Index Troponin I 0.081 H B-Natriuretic Peptide Total Protein Albumin Globulin Albumin/Globulin Ratio Procalcitonin 0.22 Assessment & Plan Assessment & Plan narrative: Bilateral Calf Ulcers/cellulitis -Continue IV Vancomycin -he is treated with Eliquis so a DVT is not very likely. Paroxysmal Atrial Fibrillation -Continue Eliquis and Amiodarone -INR was 1.7 Congestive Heart Failure, clinically unable to be determined, Echocardiogram is pending -Continue IV Lasix Acute Hypoxic Respiratory Failure Diabetes Mellitus 2 -Continue Lantus and Glipizide and follow blood sugars AC and HS. Hypertension -Continue Hydralazine and Isosorbide Hyperlipidemia -Continue Crestor Elevated Troponin -Presumably secondary to LEANN/CKD -Repeat Troponin is down to 0.081. -Consider Heparin Drip for NSTEMI if troponin rises or if he develops chest pain. -Echocardiogram ordered BPH -Continue Tamsulosin Code Status -He is very clear that he is DNR.
--- NOTE | 2019-07-03 11:39 | PC.NURSE ---
Addendum entered by Yolanda Combs R.N. 07/03/19 16:21: Dr. Lua briefly updated at 1621 on the last addendum regarding slight left facial droop. Addendum entered by Yolanda Combs R.N. 07/03/19 16:02: At 1550, update given to pt's son Chau, okay with pt to give detailed information. Chau stated he had recently spoken with Sangeetha with discharge planning as well. Addendum entered by Yolanda Combs R.N. 07/03/19 15:44: At 1220, this editorial writer observed pt having a left slight facial droop not noted before. Pt has an equal smile, able to stick out his tongue without issue. Pt has a thick accent, no slurring noted, pt's son states he noted slurring and pt stated he slurrs his words when he is in pain. Pt able to lift his upper extremities up off the bed, no drift noted and pt able to lift his right arm at a higher elevation than his left. pt had equal tremor noted to BUE when trying to hold arms elevated. Equal hand railroad track mechanic strength noted. At 1540, I had pt look in a mirror to assess if his slight left facial droop was normal for him. Pt unsure stating he doesn't look at himself in the mirror. Evening RN aware of above also. Addendum entered by Yolanda Combs R.N. 07/03/19 13:32: Spoke with Dr. Lua around 1320. No need for LE doppler study at this time. Bactroban ointment as ordered to be placed on BLE per Dr. Lua. Addendum entered by Yolanda Combs R.N. 07/03/19 12:20: PRN Robaxin given to pt at 1035 for mid to lower back pain to muscles. Upon reassessment at 1220, pt reports marginal/little improvement. Original Note: Day Shift- Update given to pt's son Chip at 1135. Okay with pt to give detailed information to Chip on pt's plan of care.
[2019-07-03] MEDS: OXYCODONE IR 5 MG TABLET PO (12:28)
[2019-07-03] MEDS: MUPIROCIN 22 GM OINT 1 APPLIC TOP ×2 (13:50→21:42)
--- NOTE | 2019-07-03 15:20 | CM.DANOTE ---
Discharge Planning/Care Management DCP: assessment: case received, EMR reviewed. Discussed in Team Rounds. Dr. Lua noted that at this point he is very much advocating for a snf d/c for pt when he is stable to leave the hospital. OT and PT were ordered today, no eval notes are yet in place. Met now with pt and introduced self and role. Pt is an 83 year old male who admitted yesterday late afternoon to care of hospitalist team. Airlifted over from [facility]. PCP: Dr. Rene Clark Payer: Medicare and AARP Admission status: INPT: confirmed by UR RN Leah. Pt is found lying in bed, [address] (not on home oxygen) and able to converse but seems very groggy. Pt confirms that he lives with Leah on [address]. His son Chau is in [place]: [phone] and he readily gives permission for hospital staff to talk with Chau. He said Chau was aware that he was in the hospital. Pt says he has had HH in the past but not recently. He has not been getting any wound care for his leg. It's that way because I have diabetes. Had brief discussion of SNF recommendation by Dr. Lua which pt at this point does not wish to consider. As her was nodding out during talk by this time this DCPlanner said I would now call Chau to discuss this further and to make sure Chau is aware that Leah is home by herself. Called Chau as planned. He said that he had been in touch with his brother Chip who lives in [facility]: cell: [phone]. He says no one in family has POA for his dad. Chau has also spoken with his mother Leah and has coordinated some check ins for her by helpful neighbors. He says at this point she seems fine. He notes surprise that a SNF setting might be needed and asked questions about the setting. After more discussion and SNF choice list review he did say to put his father on the list for the local facility: [facility] in case of need. He does think the physicians will need to be clear to his father that this is needed. He does say that his father had extensive back surgery about 10 years ago and does have limitations in his functional abilities related to this but that he has been getting by ok at home. He said his brother Chip did speak with ROHIT Guerrero, caring for pt today, this morning and that the family will be in close contact. Pt did have his cell phone on his overbed table. P: put in referral to [facility]/[place] via vm and efax of face sheet/done give updated contact information to [facility] and make sure Dr. Lua is aware. review PT/OT notes when available Update pt on the [facility] tentative referral tomorrow once it is known if they have a bed and after further discussion in tomorrow's Rounds. Advanced directive, confirm from FAMILY Start: 07/02/19 17:42 Freq: Q24H Status: Active Protocol: Document 07/02/19 17:42 AGW (Rec: 07/02/19 23:32 AGW [id number]) Advance Directive, confirm on record Time 18:30 Person contacted no one to contact Copy received No CM Discharge Assessment Start: 07/03/19 15:18 Freq: Status: Active Protocol: Document 07/03/19 15:18 ITV (Rec: 07/03/19 15:20 ITV [id number]) Discharge Planning Assessment Advance Directives? No History Provided By Patient,Family Member,Medical Record Has Patient been admitted in last 30 No days? Prior Living Arrangements House Household Members spouse Comment Pt lives with his Leah on [facility]. She is home and recovering from a broken collarbone after a fall Whiteboard Updated in Patient Room with Yes name and ext. # of Camera Technician Review Status In Process
[2019-07-03] MEDS: AMIODARONE 100 MG TABLET PO (17:08)
[2019-07-03] MEDS: TAMSULOSIN 0.4 MG CAPSULE PO (17:08)
[2019-07-03] MEDS: ROSUVASTATIN 10 MG TABLET PO (17:08)
[2019-07-03] MEDS: glipiZIDE 5 MG TABLET PO (17:08)
[2019-07-03] MEDS: VANCOMYCIN 750 MG/150 ML FROZ.PIGGY 150 MG IV (17:09)
--- NOTE | 2019-07-03 17:31 | DI.ECHO.S_ITS ---
[facility] +---------+ : : [address] : : : : [place], [place] : : : : [id number] : : : : Phone: [phone]+ Echocardiogram Report + + :Name: JAY JAY MADRIGAL Study Date: 07/04/2019 Height: 69 in : :[facility] Exam Location: [facility] Weight: 284 lb : : Gender: Male BSA: 2.4 m2 : :: 1935 Age: 83 yrs BP: 131/118 mmHg: :Reason For Study: Congestive heart failure : :Ordering Physician: Misha : :Hospitalist Performed By: Shari Page : :Referring: Lizzette COURTNEY E : + + Interpretation Summary The study quality was technically difficult. A contrast injection of Definity was performed to improve assessment of LV function. Left ventricular wall thickness is moderately increased. Diastolic parameters suggest a restrictive filling pattern consistent with probable significantly elevated filling pressures.(grade 3 diastolic dysfunction) Flattened septum is consistent with RV volume overload. The RV appears mild-moderately enlarged but the image quality is suboptimal for accurate assessment. Right ventricular systolic function is at the lower limits of normal. The right ventricular systolic pressure is estimated to be at least 76 mmHg based on an estimated right atrial pressure of 15 mm Hg. There is moderate to severe mitral annular calcification. 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 -Overall this echo shows severe pulmonary hypertension and evidence of increased filling pressures. The bioprosthetic valve could not be adequately evaluated. -In some views, a questionable echodensity is suspected , associated with aortic valve; but this could be artifact due to significant calcification. Please correlate clinically. -There is no prior echocardiogram noted for this patient. Procedure: A two-dimensional transthoracic echocardiogram with color flow and Doppler was performed. The study quality was technically difficult. There is no prior echocardiogram noted for this patient. A contrast injection of Definity was performed to improve assessment of LV function. The heart rate ranged between 56-82 bpm during the study. Left Ventricle: The left ventricle is normal in size. Left ventricular wall thickness is moderately increased. There is no thrombus. The ejection fraction is estimated to be 50-55%. The left ventricular ejection fraction is normal. The septum is hypokinetic. Flattened septum is consistent with RV volume overload. Diastolic parameters suggest a restrictive filling pattern consistent with probable significantly elevated filling pressures. Right Ventricle: The right ventricle is not well visualized. The RV appears mild-moderately enlarged but the image quality is suboptimal for accurate assessment. Right ventricular systolic function is at the lower limits of normal. TAPSE 1.6 cm. Atria: The left atrium is severely dilated. The right atrium is moderately dilated. There is no Doppler evidence for an interatrial shunt. Mitral Valve: The mitral valve leaflets appear mildly thickened, but open well. There is moderate to severe mitral annular calcification. No significant mitral valve stenosis. The mitral valve mean gradient is 2 mmHg. There is mild mitral regurgitation. Aortic Valve: The aortic valve is not well visualized. 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 The valve is not well-visualized. the maximum velocity is 2.5 m/s and ARTHUR 1.2 cm2, indicating probably normal function. No aortic regurgitation is present. Tricuspid Valve: The tricuspid valve leaflets are thickened and/or calcified, but open well. There is moderate tricuspid regurgitation. The right ventricular systolic pressure is estimated to be at least 76 mmHg based on an estimated right atrial pressure of 15 mm Hg. Pulmonic Valve: The pulmonic valve is not well visualized. There is trace pulmonic regurgitation. Great Vessels: The aortic root is not well visualized but is probably normal size. The ascending aorta could not be visualized. The pulmonary is not well visualized. The IVC is dilated (diameter is greater than 2.1 cm) and it collapses less than 50% with a sniff. This suggests a high right atrial pressure of 15 mm Hg. Pericardium/ Pleura There is no pericardial effusion. There is no pleural effusion. MMode/2D Measurements & Calculations LVIDd: 5.2 cm LVOT diam: 2.1 cm LVIDs: 4.6 cm Ao root diam: 2.7 cm FS: 11.9 % EPSS: 0.34 cm IVSd: 1.8 cm LVPWd: 1.3 cm LV esparza. diameter/BSA (cm/m^2): 2.2 LV sys. diameter/BSA (cm/m^2): 1.9 LA A2 area: 25.8 cm2 RA long axis: 6.7 cm LA A4 area: 31.6 cm2 RA area: 27.6 cm2 LA length (vol): 6.0 cm RA vol: 96.3 ml LA vol: 115.3 ml RA : 40.2 ml/m2 LA vol index: 48.1 ml/m2 IVC diam: 3.2 cm RVD1 (basal): 5.6 cm Doppler Measurements & Calculations Ao V2 max: 256.1 cm/sec LVOT Max Bonifacio: 88.2 cm/sec Ao V2 mean: 165.0 cm/sec LV V1 max P.1 mmHg Ao max P.2 mmHg LV V1 VTI: 17.0 cm Ao mean P.5 mmHg ARTHUR(I,D): 1.2 cm2 Ao V2 VTI: 47.6 cm ARTHUR(V,D): 1.2 cm2 sev ratio: 0.36 ARTHUR indexed to BSA (cm^2/m^2): 0.52 MV E max bonifacio: 119.3 cm/sec TR max bonifacio: 391.7 cm/sec MV A max bonifacio: 59.6 cm/sec TR max P.4 mmHg MV E/A: 2.0 PA V2 max: 133.3 cm/sec Med Peak E' Bonifacio: 4.6 cm/sec PA V2 mean: 78.0 cm/sec E/E' med: 25.7 PA mean P.9 mmHg Lat Peak E' Bonifacio: 13.0 cm/sec PA Accel Time: 0.08 sec E/E' lat: 9.2 E/e' average: 17.4 MV P1/2t: 62.1 msec MVA(VTI): 1.8 cm2 MV V2 mean: 61.0 cm/sec MV P1/2t max bonifacio: 119.3 cm/sec MV mean P.0 mmHg MVA(P1/2t): 3.5 cm2 MV V2 VTI: 32.5 cm SV(LVOT): 59.0 ml Electronically signed by: Storm Lora M.D. on Reading Physician:07/04/2019 08:13 PM
--- NOTE | 2019-07-03 17:40 | PT.IIE ---
Current Diagnoses Heart failure, unspecified (07/02/19) Surgical History (Last Updated 07/03/19 @ 16:02 by Yolanda Combs RN) History of aortic valve replacement (Acute) History of back surgery (Acute) History of inguinal hernia repair (Acute) History of spinal fusion (Acute) History of total left hip arthroplasty (Acute) History of total right knee replacement (Acute) Medical History (Last Reviewed 07/02/19 @ 20:26 by Lizzette Lua MD) Atrial fibrillation (Acute) Diabetes (Acute) Hyperlipidemia (Acute) Hypertension (Acute) Osteoarthritis (Acute) Physical Therapy Inpatient Evaluation/Re-Eval M1 PT/OT-IP Prior Functional Status Start: 07/03/19 18:36 Freq: NEEDED Status: Active Protocol: Document 07/03/19 17:40 AB (Rec: 07/03/19 18:50 AB [id number]) Medical Review Prior Functional Status Medical History Reviewed Yes Communication able to make needs known but pt is sleepy and needs cues to keep eyes open but able to respond to questions Mobility and Gait pt stated that he is modified independent with all mobilities and ambulation using a FWW; stated that he still drives Social History Household Members spouse Living Arrangements House Number of Floors (Floors) One Floor Number of Stairs To Enter/Railing? no steps to enter Home Environment Standard Height Toilet,Walk in Shower,Built-In Shower Seat Home Equipment Four Wheel Walker,Hand Held Shower,Lift Recliner,Grab Bars Near Toilet,Grab Bars In Shower Additional Social History Comment pt stated that he sleeps on a lift chair stated that spouse recently had a fall and had a clavicular fracture and cannot assist him M2 PT-IP Current Condition Start: 07/03/19 18:36 Freq: NEEDED Status: Active Protocol: Document 07/03/19 17:40 AB (Rec: 07/03/19 18:50 AB [id number]) Physical Therapy Current Condition Current Condition Evaluation Date 07/03/19 Treatment Diagnosis BLE cellulitis; CHF; difficulty in walking Onset Date 07/02/19 Precautions Other Precautions falls M3 PT-IP Subjective Start: 07/03/19 18:36 Freq: NEEDED Status: Active Protocol: Document 07/03/19 17:40 AB (Rec: 07/03/19 18:50 AB [id number]) Subjective Physical Therapy Visit Type Type Initial Evaluation Visit Start Time 17:40 Visit Stop Time 18:34 Total Visit Minutes 54 Number of PRECIPITATOR SUPERVISOR Visits 0 Physical Therapy Visit Comments Patient Comments pt requires motivation to partcipate Therapy Pain Assessment Pain When Pain Assessed During Mobility Pain Present Pain Present Pain Reported Location Bilateral Lower Back Scale Used unable to state pain but pt screams when moved Pain Management Techniques Distraction,Re-positioning, Timing of Activity with Medications M4 PT-IP Mobility and Gait Start: 07/03/19 18:36 Freq: NEEDED Status: Active Protocol: Document 07/03/19 17:40 AB (Rec: 07/03/19 18:50 AB [id number]) PT-Bed Mobility Assessment Supine to Sit Supine to Sit Total Assistance,2 Person Assistance Sit to Supine Sit to Supine Total Assistance Scooting Scooting to Edge of Bed Dependent Scooting Up and Down in Bed Dependent PT-Transfer Assessment Comments Mobility Comments pt required total A x 3 for supine to sit with HOB elevated. able to sit on EOB CGA. attempted sit to stand to reposition up towards HOB but pt unable despite assistance provided. pt is resistant to care and not moving his body much to assist with mobility. opted to use the mechanical lift. positioned sling and positioned pt in bed. nurse and NAC assisted PT with pt. required dependent assist x 3 with all tasks. pt easily agitated. PT-Balance Assessment Sitting Balance and Reactions Static Sitting Balance Ability Fair Dynamic Sitting Balance Ability Poor M5 PT-IP Objective Assessments Start: 07/03/19 18:36 Freq: NEEDED Status: Active Protocol: Document 07/03/19 17:40 AB (Rec: 07/03/19 18:50 AB [id number]) Orientation Orientation/Cognition Level of Alertness Alert Orientation Name Safety Awareness Decreased Safety Awareness Gross Range of Motion Lower Extremity ROM Assessment Bilaterally Impaired Impairments pt is resistant with moving BLE during PROM Strength Lower Extremity Strength Assessment Bilaterally Impaired Hip 2-/5 Knee 2-/5 M6 PT-IP Treatment Start: 07/03/19 18:36 Freq: NEEDED Status: Active Protocol: Document 07/03/19 17:40 AB (Rec: 07/03/19 18:50 AB [id number]) Physical Therapy Treatment Education Education Provided Safety Other Treatments Other Treatment Performed pt educated on importance of PT and mobility M7 PT-IP Assessment and Plan Start: 07/03/19 18:36 Freq: NEEDED Status: Active Protocol: Document 07/03/19 17:40 AB (Rec: 07/03/19 18:50 AB [id number]) PT Summary Assessment and Plan Potential Rehabilitation Potential Fair Status of Condition at Evaluation Evolving Summary Impairments Pain,ROM,Strength,Balance, Coordination,Sensation,Tone, Cognition,Bed Mobility, Transfers,Gait,Activity Tolerance Assessment Summary pt is dependent with all mobilities reqquiring total A x 3 and max cues. pt c/o increase pain and requires motivation to participate. Pt will need SNF rehab to improve function. Goals Bed Mobility Goal Moderate Assistance Transfer Goal Moderate Assistance,Front Wheeled Walker Gait Goal Moderate Assistance,Front Wheel Walker Gait Distance 25 Days to Meet Goals 10 Frequency of Treatment Frequency Of Treatment Once a Day Treatment Plan Physical Therapy Treatment Plan Bed Mobility Training,Transfer Training,Gait Training, Therapeutic Exercise,Balance Retraining,Discharge Planning, Neuromuscular Re-ed, Coordination Retraining,Manual Therapy Recommendations To Nursing Amount of Assist Needed 3 or More Person Assist,Total Assistance,Mechanical Lift Discharge Recommendations PT Discharge Recommendations SNF Rehab
[2019-07-03] MEDS: SODIUM CHLORIDE 0.9% FLUSH 10 ML IV (21:42)
[2019-07-04] VITALS (16 sets, daily range): BP systolic 115–145; BP diastolic 44–118; PULSE 55–71; RESP 10–25; TEMP 36.3–37; O2SAT 88–96
--- NOTE | 2019-07-04 | DI.CT.S_ITS ---
PROCEDURE: CT HEAD/BRAIN WO CON INDICATIONS: POSSIBLE STROKE- TECHNIQUE: Noncontrast 4.5 mm thick angled axial sections acquired from the foramen magnum to the vertex, with coronal and sagittal reformats. For radiation dose reduction, the following was used: automated exposure control, adjustment of mA and/or kV according to patient size. COMPARISON: None. FINDINGS: Image quality: Excellent. CSF spaces: Basal cisterns are patent. No extra-axial fluid collections. The ventricles are symmetric in size and shape. Brain: No intracranial bleeds or masses. There is cerebral volume loss for age, with resultant ventricular and sulcal prominence. There are periventricular and deep white matter chronic small vessel ischemic changes. There is intracranial internal carotid artery atherosclerosis. Skull and face: Calvarium and visualized facial bones appear intact, without suspicious lesions. Sinuses: Visualized sinuses and mastoids are clear. IMPRESSION: No evidence of large vessel territory acute ischemia/infarct. No acute intracranial hemorrhage. Chronic microvascular white matter ischemic changes. Dictated by: Leo Barrett M.D. on 07/04/2019 at 9:56 Approved by: Leo Barrett M.D. on 07/04/2019 at 10:00
[2019-07-04] MEDS: OXYCODONE IR 5 MG TABLET PO (00:26)
[2019-07-04 01:15] LABS: Bilirubin Urine UA NEGATIVE (NEGATIVE); Color Urine UA BROWN; Glucose Urine UA NEGATIVE (Negative); Ketones Urine UA NEGATIVE (NEGATIVE); Leukocyte Esterase Urine UA NEGATIVE (NEGATIVE); Nitrite Urine UA NEGATIVE (Negative); Occult Blood Urine UA 3+ (Negative); Protein Urine UA 1+ (Negative); Specific Gravity Urine UA 1.015 (1.000-1.035); Urobilinogen Urine UA 0.2 E.U./dL (0.2)
[2019-07-04 01:17] LABS: Appearance Urine UA SL CLOUDY; RBC Urine >100/HPF (0-5/HPF); WBC Urine 0-1/HPF (0-5/HPF)
[2019-07-04 01:18] LABS: Bacteria Urine Occasional (0-1); Culture Indicated Urine Cult Not Indicated
[2019-07-04] MEDS: LORazepam 1 MG TABLET 2 MG PO (01:55)
--- NOTE | 2019-07-04 02:37 | PC.NURSE ---
Pt VSS, 3 liters O2 N.C., 94%. Pt has new problem of hematuria. Melanie RUIZ was notified. Melanie had me order a UA w/ culture. Pt still having pain control issues, 7-04/24. 2mg of Ativan given at 0200.
[2019-07-04] MEDS: MUPIROCIN 22 GM OINT 1 APPLIC TOP ×3 (09:55→20:36)
[2019-07-04] MEDS: SODIUM CHLORIDE 0.9% FLUSH 10 ML IV (09:56)
[2019-07-04 11:12] LABS: Fractionated Inspired Oxygen 0.44; HCO3 ABG 34 mmol/L (22-26); Oxygen Saturation ABG 93 % (95-100); PO2 ABG 79 mmHg (80-100); TCO2 ABG 36 mmol/L (21-31); pH ABG 7.29 (7.35-7.45)
[2019-07-04 11:13] LABS: PCO2 ABG 71.9 mmHg (35-45)
[2019-07-04] MEDS: FLUMAZENIL 0.5 MG/5 ML MDV 0.2 MG IV ×2 (11:14→13:50)
--- NOTE | 2019-07-04 11:29 | CM.DPC ---
Addendum entered by Sangeetha Manuel LPN 07/04/19 11:47: Pt is on the [facility] potential referral list. Original Note: DCP: continued: Case was being discussed in Team Rounds and a code stroke was called. Pt is now transferring to ICU room 101. DCP team will continue to follow as POC unfolds. See yesterday's DCP note for specifics and family contact numbers.
--- NOTE | 2019-07-04 12:30 | PM.PN.1 ---
Subjective Subjective Date Patient Seen: 07/04/19 Time Patient Seen: 12:30 Interval history: He is seen today to follow-up his congestive heart failure, lower extremity cellulitis, over-sedation, code stroke, severe low back pain. During my 1st visit with him he was completely sedated, unable to engage in conversation or report any symptoms. A code stroke was called at 10:05 a.m.. His blood sugar was 148. His vital signs were stable. He was extremely lethargic, with his head pain to the left and drooping of the left face. With provocation he would awaken and answer questions but then rapidly slip back into sedation. He appeared to have very weak but symmetric upper and lower extremities. A Stroke Scale was done with a score of 5+. Additional investigation revealed that he received his last methocarbamol at 10:35 p.m., a 2 mg dose of lorazepam at 1:55 a.m., a 5 mg oxycodone dose at 12:26 a.m. and his last known awake/alert time was when he took some Tylenol by mouth at 4:41 a.m.. His EKG shows his sinus rhythm with left bundle branch block, stable. His pH is 7.287 with pCO2 71 and a PO2 of 79. His CT scan done stat showed chronic micro vascular changes. He was given IV Flumazicon and rapidly became more alert. An hour later he was given a second dose and became even more alert. He had returned to his baseline neurologically at that point. His son arrived and was briefed, with additional discussions throughout the day. Early this evening another chest x-ray was done showing more pulmonary edema, so an additional IV Lasix dose was given. His oxygen saturations were improving with the reversal of the sedation. He had indicated that he had a fusion/surgery to his entire spine but his son tells me that the lower part of the hardware was at T11 and so a lumbar spine x-ray was done to rule out a new compression fracture as the cause of his increasing low back pain. His urine culture has also come back growing Klebsiella so ceftriaxone has been started Exam Vital Signs (past 8 hours): - 07/04/19 04:33 07/04/19 07:24 07/04/19 07:35 Temperature 98.6 F 98.4 F Pulse Rate 71 69 Respiratory Rate 18 20 Blood Pressure 145/65 H 115/62 Pulse Oximetry 96 94 93 07/04/19 10:58 07/04/19 11:18 Temperature 98 F Pulse Rate 65 65 Respiratory Rate 19 16 Blood Pressure 141/84 H Pulse Oximetry 90 L Oxygen Delivery Method Nasal Cannula Oxygen Flow Rate 6 Narrative Exam Narrative: He was seen repeatedly during the day, 1st in his regular hospital were room and then later in the intensive care unit. When alert and awake he was very disturbed, vocalizing whenever he was touched or moved. He clearly is in severe low back pain. He is alert and oriented during many of the visits although was over-sedated early this morning and during the code stroke. Heart is regular rate and rhythm with a 2/6 systolic murmur Lungs are clear to auscultation bilaterally on initial exam There is trace bilateral pitting ankle edema The left lower leg is darker red color than the right side. The scabs/superficial ulcers appear to be improving. There is some leakage of serous fluid from the left ankle calf. Objective Labs Result Diagrams: 07/03/19 06:04 07/03/19 06:04 Labs: Laboratory Results - last 24 hr 07/04/19 07/04/19 00:55 11:00 ABG pH 7.29 L ABG pCO2 71.9 H* ABG pO2 79 L ABG HCO3 34 H ABG Total CO2 36 H ABG O2 Saturation 93 L ABG Base Excess 8.0 H FiO2 0.44 Urine Color Brown Urine Appearance Sl cloudy Urine pH 5.0 Ur Specific [place] 1.015 Urine Protein 1+ H Urine Glucose (UA) Negative Urine Ketones Negative Urine Occult Blood 3+ H Urine Nitrate Negative Urine Bilirubin Negative Urine Urobilinogen 0.2 Ur Leukocyte Esterase Negative Urine RBC >100/hpf Urine WBC 0-1/hpf Urine Bacteria Occasional (0-1) Ur Culture Indicated? Cult not indicated Assessment & Plan Assessment & Plan narrative: Oversedation -code stroke evaluation was done today as described above -CT of the brain shows no acute bleed -he recovers back to his baseline with 2 doses of Romazicon -he should not receive further lorazepam and his opiate use should be very minimal. This is quite problematic with his severe low back pain. This is discussed with his son. Klebsiella UTI -started on ceftriaxone today 07/04 -[place] catheter placed at his request due to diuresis demands. Bilateral Calf Ulcers/cellulitis -Continue IV Vancomycin -he is treated with Eliquis so a DVT is unlikely Paroxysmal Atrial Fibrillation -Continue Eliquis and Amiodarone -INR was 1.7 Congestive Heart Failure, clinically unable to be determined, Echocardiogram was done today and reading is pending -Continue IV Lasix Acute Hypoxic Respiratory Failure -this was complicated today by hypercapnic failure due to respiratory suppression of over-sedation. -he appears to be back to his baseline oxygenation with reversal of the benzodiazepine. Diabetes Mellitus 2 -Continue Lantus and Glipizide and follow blood sugars AC and HS. Hypertension -Continue Hydralazine and Isosorbide Hyperlipidemia -Continue Crestor Elevated Troponin -Presumably secondary to LEANN/CKD -Repeat Troponin was down to 0.081. -Consider Heparin Drip for NSTEMI if troponin rises or if he develops chest pain. -Echocardiogram reading from 07/04 is pending BPH -Continue Tamsulosin Severe Low Back Pain -lumbar spine x-rays pending -I discussed with his son that he conceivably is a candidate for kyphoplasty if compression fractures are found but with his frail medical status and his problems with sedation any intervention would be quite problematic. Code Status -He is very clear that he is DNR He will continue in the intensive care unit tonight after his over-sedation/code stroke issues this morning.
--- NOTE | 2019-07-04 12:36 | PC.NURSE ---
Addendum entered by Edward Sutton R.N. 07/04/19 14:20: 1315- Pt continues to be somnolent. Awakens to verbal stimuli but quickly falls back asleep and snores. Attempted to give meds PO but pt adamantly refuses for HOB to be elevated past 25 degrees due to back pain. He is noted to have a moist cough. He is requiring 4L NC to keep sats 93-95%. He is snoring and demonstrating hyponea with sleep. Called to MD and reported assessment findings. Orders received to administer add'l dose of flumazenil and to treat BP with one time labetolol. Orders received to hold lantus after reporting BG and no PO intake today. Called to RT and requested ETCO2 cannula. Will monitor. Original Note: Rec'd pt from acute care to 102 via pt bed with O2 via NC at 6LPM and tele at 1040. Transfer r/t code stroke. O2 sat noted to be 88-89% on 6LPM. RR 17-20, sonorous. Pt mainly abd breaths. Is rousable to verbal stimuli but quickly falls back asleep and is disoriented to time and asking repetitive questions with slurred speech. Reviewed meds given overnight with Dr. Lua at bedside. Orders received to give flumazenil to reverse effects of ativan. Received orders for ABG. RT completed ABG and results given to MD by this RN. MD states will consider bipap if reversal ineffective. Son at bedside updated on events. Son states pt has used CPAP in the past for BIMAL but no longer uses one since he sits up in a comfortably recliner to sleep at night. Son also states that pt has been very sensitive to narcotics and benzos in the past. After romazicon given, pt was noted to have SPO2 98% on 6LPM with RR 17, less snoring noted. O2 decreased to 4L NC. Oriented to call light, fall risk, environment, plan of care.
[2019-07-04] MEDS: CHOLECALCIFEROL (VITAMIN D3) 1,000 UNIT TABLET 1000 UNIT PO (13:09)
[2019-07-04] MEDS: CEFTRIAXONE 1 GM/50 ML FROZ.PIGGY IV (13:11)
[2019-07-04] MEDS: HYDROCORTISONE 2.5% CREAM 30 GM 1 APPLIC TOP (13:11)
--- NOTE | 2019-07-04 13:34 | DI.RAD.S_ITS ---
PROCEDURE: XR CHEST 1V INDICATIONS: Hypoxia TECHNIQUE: One view of the chest was acquired. COMPARISON: [facility], CT, ABDOMEN W&WO CONTRAST, 11/08/2016, 11:20. [facility], CR, XR CHEST 1V, 07/02/2019, 12:48. FINDINGS: Surgical changes and devices: Extensive surgical changes of the spine again demonstrated. Posterior changes of thoracotomy. Lungs and pleura: No focal consolidation. There is interstitial edema. No pleural effusions or pneumothorax. Mediastinum: The cardiac silhouette is enlarged with pulmonary vascular congestion. Bones and chest wall: No suspicious bony lesions. Overlying soft tissues appear unremarkable. IMPRESSION: Pulmonary vascular congestion and interstitial edema. Dictated by: Leo Barrett M.D. on 07/04/2019 at 13:27 Approved by: Leo Barrett M.D. on 07/04/2019 at 13:30
[2019-07-04] MEDS: LABETALOL 20 MG/4 ML SYRINGE 10 MG IV (13:54)
--- NOTE | 2019-07-04 14:49 | PC.NURSE ---
Day Shift Acute Care- Pt asleep during morning, checks on pt at 0724 and 0830, pt asleep, O2 sat 94% on 3L NC, on continuous O2 monitoring. In lat morning, GAS TECHNICIAN report pt hard to arouse, has not eaten breakfast yet and needed to be repositioned. Went to room at 0945, Pt aroused when named called several times, needing to ask pt to open his eyes. BLE cleansed with foam soap and warm water and Bactroban scheduled placed per order. During this time, pt was stating easy, easy. Had BLE tenderness and would say ouch when lifting BLE. This RN noticed pt's torso leaning to the left, when trying to reposition pt, he cried outloud in pain to his back. Pt had noticeable left facial droop, when smiling, pt still had left facial droop. Slurred speech. Bilateral upper extremity weakness with bilateral drift. Left hand weak human resources supervisor compared to the right. Pt's tongue when stuck out was midline. Pt able to track finger. Pt unable to perform BLE leg lift due to pain and weakness. This RN called Cooler Tender to bedside for assessment at 0955 for concern of stroke. Update given. Dr. Lua from room. Code stroke called. Dr. Lua into assess pt, Rt present, O2 sat mid to high 80'2 on 3L NC, O2 increased to 6L NC. Pt responding to questions, delayed response not new from admit however pt remains lethargic and closes eyes during conversation. BP 136/77, pulse 84. Pt left to Head CT scan at 1026 from room 210. Pt's Leah called in room and update of above given. Spoke to Leah at 1026. Pt's belongings brought to ICU by GAS TECHNICIAN, including pt's glasses and cell phone. Report called to ROHIT Leon in ICU at 1034.
[2019-07-04] MEDS: ISOSORBIDE MONONITRATE ER 30 MG TABLET PO (16:49)
[2019-07-04] MEDS: ROSUVASTATIN 10 MG TABLET PO (16:53)
[2019-07-04] MEDS: FUROSEMIDE 40 MG TABLET PO (16:53)
[2019-07-04] MEDS: glipiZIDE 5 MG TABLET PO (16:53)
[2019-07-04] MEDS: AMIODARONE 100 MG TABLET PO (16:54)
[2019-07-04] MEDS: TAMSULOSIN 0.4 MG CAPSULE PO (16:54)
[2019-07-04] MEDS: ACETAMINOPHEN 325 MG TABLET 650 MG PO (16:58)
--- NOTE | 2019-07-04 17:07 | PT-OP ANOTE ---
Per ICU nursing, pt with increased somnolence today, not easily rousable. Due to pt status, will hold PT today and check on pt 07/05/19.
--- NOTE | 2019-07-04 17:24 | DI.RAD.S_ITS ---
PROCEDURE: XR LUMBAR SPINE 2-3V INDICATIONS: Low back pain TECHNIQUE: Single limited AP view of the lumbar spine were acquired. Patient declined further further standard radiographic views. COMPARISON: [facility], CT, ABDOMEN W&WO CONTRAST, 11/08/2016, 11:20. FINDINGS: Limited single view chest post surgical changes of fusion in the lower thoracic spine, partially captured as well as postsurgical changes of a left total hip arthroplasty. Marked degenerative changes present throughout the lumbar spine. Aortic and iliac vascular calcifications are also present. IMPRESSION: Limited study showing degenerative changes of the lumbar spine. Acute bony abnormality not visualized but not excluded on this single view. Dictated by: Leo Barrett M.D. on 07/04/2019 at 17:11 Approved by: Leo Barrett M.D. on 07/04/2019 at 17:14
[2019-07-04] MEDS: FUROSEMIDE 40 MG/4 ML VIAL IV (17:27)
[2019-07-04] MEDS: VANCOMYCIN 750 MG/150 ML FROZ.PIGGY 150 MG IV (18:13)
[2019-07-04] MEDS: APIXABAN 5 MG TABLET 2.5 MG PO (20:37)
[2019-07-04] MEDS: HYDRALAZINE 10 MG TABLET PO (20:37)
[2019-07-05] VITALS (11 sets, daily range): BP systolic 96–122; BP diastolic 51–67; PULSE 66–75; RESP 14–23; TEMP 36.4–36.9; O2SAT 93–98
[2019-07-05] MEDS: OXYCODONE IR 5 MG TABLET PO ×3 (00:12→18:17)
--- NOTE | 2019-07-05 06:33 | PC.NURSE ---
Patient is oriented to person and sometimes place, speech is sometimes difficult to understand due to drowsiness and thick accent. Patient is resistive to care, turning, raising or lowering HOB, insisted on sipping water with HOB <30, but he coughs and was educated on risks. 5mg oxycodone given per prn for chronic back pain and BLE pain. Legs are edematous, erythemic, and continue to weep, chux pads underneath. On 4L NC with SpO2 90-95%, breath sounds intermittently coarse, clears some with cough, denies dyspnea, VSS, diuresed 1100ml urine.
[2019-07-05] MEDS: APIXABAN 5 MG TABLET 2.5 MG PO ×2 (09:45→20:44)
[2019-07-05] MEDS: CHOLECALCIFEROL (VITAMIN D3) 1,000 UNIT TABLET 1000 UNIT PO (09:45)
[2019-07-05] MEDS: HYDRALAZINE 10 MG TABLET PO ×2 (09:46→20:44)
[2019-07-05] MEDS: MAGNESIUM OXIDE 400 MG TABLET PO (09:47)
[2019-07-05] MEDS: POTASSIUM CHLORIDE 10 MEQ TAB 20 MEQ PO (09:48)
[2019-07-05] MEDS: MUPIROCIN 22 GM OINT 1 APPLIC TOP ×2 (09:48→20:44)
[2019-07-05] MEDS: FUROSEMIDE 40 MG/4 ML VIAL IV (09:49)
[2019-07-05] MEDS: SODIUM CHLORIDE 0.9% FLUSH 10 ML IV ×3 (09:49→20:45)
[2019-07-05] MEDS: CEFTRIAXONE 1 GM/50 ML FROZ.PIGGY IV (11:48)
[2019-07-05] MEDS: ACETAMINOPHEN 325 MG TABLET 650 MG PO ×2 (12:07→18:17)
--- NOTE | 2019-07-05 12:30 | PT.IPTN ---
Current Diagnoses Heart failure, unspecified (07/02/19) Physical Therapy Treatment Note M2 PT-IP Current Condition Start: 07/03/19 18:36 Freq: NEEDED Status: Discharge Protocol: Document 07/03/19 17:40 AB (Rec: 07/03/19 18:50 AB [id number]) Physical Therapy Current Condition Current Condition Evaluation Date 07/03/19 Treatment Diagnosis BLE cellulitis; CHF; difficulty in walking Onset Date 07/02/19 Precautions Other Precautions falls M3 PT-IP Subjective Start: 07/03/19 18:36 Freq: NEEDED Status: Discharge Protocol: Document 07/10/19 14:05 GGD (Rec: 07/10/19 16:26 GGD [id number]) Subjective Physical Therapy Visit Type Type Treatment Note Visit Start Time 13:37 Visit Stop Time 14:02 Total Visit Minutes 35 Notes co-treat with OT, PT, RN and MD in room. Number of COUNSELOR DORMITORY Visits 1 Physical Therapy Visit Comments Patient Comments Pt states he would try and do what he can. Therapy Pain Assessment Pain When Pain Assessed During Mobility Pain Present Pain Present Pain Reported M4 PT-IP Mobility and Gait Start: 07/03/19 18:36 Freq: NEEDED Status: Discharge Protocol: Document 07/10/19 14:05 GGD (Rec: 07/10/19 16:26 GGD [id number]) PT-Bed Mobility Assessment Sit to Supine Sit to Supine Total Assistance,2 Person Assistance Scooting Scooting to Edge of Bed Dependent Scooting Up and Down in Bed Dependent PT-Transfer Assessment Sit to and From Stand Sit to and from Stand Total Assistance,2 Person Assistance,Use of Upper Extremities Equipment Transfer Assistive Device Front Wheeled Walker, Mechanical Lift Orthotic/Prosthetic Devices or Brace: No Transfers Transfer Destination Bed Transfer Technique Mechanical Lift Transfer Ability Level of Assist Maximum Assistance,Total Assistance,2 Person Assistance ,Use of Upper Extremities Comments Mobility Comments Pt sit to stand from chair with FWW with max A x 3. Pt stood for < 1 min with mod A x 3. Pt then transfer to bed with sit to stand lift. He had increase in pain with transition from sit to stand with lift. M5 PT-IP Objective Assessments Start: 07/03/19 18:36 Freq: NEEDED Status: Discharge Protocol: Document 07/03/19 17:40 AB (Rec: 07/03/19 18:50 AB [id number]) Orientation Orientation/Cognition Level of Alertness Alert Orientation Name Safety Awareness Decreased Safety Awareness Gross Range of Motion Lower Extremity ROM Assessment Bilaterally Impaired Impairments pt is resistant with moving BLE during PROM Strength Lower Extremity Strength Assessment Bilaterally Impaired Hip 2-/5 Knee 2-/5 M6 PT-IP Treatment Start: 07/03/19 18:36 Freq: NEEDED Status: Discharge Protocol: Document 07/10/19 14:05 GGD (Rec: 07/10/19 16:26 GGD [id number]) Physical Therapy Treatment Exercises Exercises Seated Knee Flexion/Extension M7 PT-IP Assessment and Plan Start: 07/03/19 18:36 Freq: NEEDED Status: Discharge Protocol: Document 07/10/19 14:05 GGD (Rec: 07/10/19 16:26 GGD [id number]) PT Summary Assessment and Plan Summary Assessment Summary Pt needed max a x3 for sit to stand from chair. He had flexion at trunk in standing and unable to come upright. Pt had improved posture in sit to stand lift, but decrease tolerance during the transition to standing from sitting. Pt will need SNF rehab to improve mobility. Frequency of Treatment Frequency Of Treatment Once a Day Treatment Plan Physical Therapy Treatment Plan Bed Mobility Training,Transfer Training,Gait Training, Therapeutic Exercise,Balance Retraining,Discharge Planning, Neuromuscular Re-ed, Coordination Retraining,Manual Therapy Recommendations To Nursing Amount of Assist Needed 3 or More Person Assist,Total Assistance,Mechanical Lift Discharge Recommendations PT Discharge Recommendations SNF Rehab
--- NOTE | 2019-07-05 13:56 | OT.IP.EVAL ---
Current Diagnoses Heart failure, unspecified (07/02/19) Past Medical History (Last Updated 07/04/19 @ 11:45 by Edward Sutton RN) Atrial fibrillation (Acute) Diabetes (Acute) Hyperlipidemia (Acute) Hypertension (Acute) Osteoarthritis (Acute) Sleep apnea (Acute) Surgical History (Last Updated 07/03/19 @ 16:02 by Yolanda Combs RN) History of aortic valve replacement (Acute) History of back surgery (Acute) History of inguinal hernia repair (Acute) History of spinal fusion (Acute) History of total left hip arthroplasty (Acute) History of total right knee replacement (Acute) Occupational Therapy Inpatient Evaluation/Re-Eval M1 PT/OT-IP Prior Functional Status Start: 07/03/19 18:36 Freq: NEEDED Status: Active Protocol: Document 07/05/19 14:04 CGR (Rec: 07/05/19 14:31 CGR [id number]) Medical Review Prior Functional Status Medical History Reviewed Yes Communication able to make needs known but pt is sleepy and needs cues to keep eyes open but able to respond to questions Mobility and Gait pt stated that he is modified independent with all mobilities and ambulation using a FWW; stated that he still drives Activities of Daily Living and IADL's Per pt, pt was IND in all ADLs except bathing. He has an aide that comes in twice a week and helps with bathing and house chores. Social History Household Members spouse Living Arrangements House Number of Floors (Floors) One Floor Number of Stairs To Enter/Railing? no steps to enter Home Environment Standard Height Toilet,Walk in Shower,Built-In Shower Seat Home Equipment Four Wheel Walker,Hand Held Shower,Lift Recliner,Grab Bars Near Toilet,Grab Bars In Shower Employment Status Retired Additional Social History Comment pt stated that he sleeps on a lift chair stated that spouse recently had a fall and had a clavicular fracture and cannot assist him M2 OT-IP Current Condition Start: 07/05/19 14:04 Freq: Status: Active Protocol: Document 07/05/19 14:04 CGR (Rec: 07/05/19 14:31 CGR [id number]) Occupational Therapy Current Condition Current Condition Evaluation Date 07/05/19 Treatment Diagnosis BLE cellulitis, hypoxia, recent fall, chf exacerbation M3 OT- IP Subjective and Pain Start: 07/05/19 14:04 Freq: Status: Active Protocol: Document 07/05/19 14:04 CGR (Rec: 07/05/19 14:31 CGR [id number]) OT- Subjective Occupational Therapy Visit Type Type Initial Evaluation Visit Start Time 13:33 Visit Stop Time 13:56 Total Visit Minutes 23 Notes co-treat with P.T. d/t last p. t. note stating 3 person assist for sup to sit. Occupational Therapy Visit Comments Patient Comments everythign hurts OT Pain Assessment Pain When Pain Assessed During Mobility Pain Present Pain Present Pain Reported Location Bilateral Lower Back Scale Used Pt did not rate but calls out and indicates pain. Description With Movement Pain Behaviors Calling Out,Facial Grimacing, Guarding,Wincing Management Techniques Distraction,Modification of Treatment,Re-positioning M4 OT- IP ADL's Start: 07/05/19 14:04 Freq: Status: Active Protocol: Document 07/05/19 14:04 CGR (Rec: 07/05/19 14:31 CGR [id number]) OT [facility] Comments OT Self-Feeding Comments Pt had completed lunch when OT entered but per nursing, pt was able to eat his ice cream with IND. OT ADL-Grooming Comments OT Grooming Comments Pt declined OT ADL-Oral Care Comments Oral Care Comments Pt declined OT ADL-Dressing General Eval Lower Body Dressing Ability Total Assistance Areas Needing Assistance Socks Comments OT Dressing Comments Started to don socks but pt then requested not to have socks on. OT ADL-Toileting Comments OT Toileting Comments Not performed OT ADL-Bathing Comments OT Bathing Comments Not performed M5 OT- IP IADL's Start: 07/05/19 14:04 Freq: Status: Active Protocol: Document 07/05/19 14:04 CGR (Rec: 07/05/19 14:31 CGR [id number]) OT-Instrumental Activities of Daily Living Deficits IADL Deficits Identified Deficits Home Safety Awareness Awareness of Need for Assistance at Home Decreased Awareness Ability to Problem Solve Emergency Unable to Problem Solve Situations M6 OT- IP Functional Cognition Start: 07/05/19 14:04 Freq: Status: Active Protocol: Document 07/05/19 14:04 CGR (Rec: 07/05/19 14:31 CGR [id number]) Cognitive Factors Limiting Selfcare Function Cognitive Ability Level of Alertness Alert Patient Orientation Name Attention Span Ability Unable to Focus,Unable to Sustain Attention Ability to Follow Commands Able to Follow One Step Commands with Increased Time, Able to Follow One Step Commands with Repetition Cognitive Comments Cognitive Assessment Comments Pt may benefit from cog assessment once able to actively participate. OT- Vision and Hearing OT- Vision Assessment Visual Acuity Glasses All The Time Vision Assessment Comments Pt kept eyes closed throughout session but is wearing bifocals. Pt unable to follow visual commands at this time. M7 OT- IP Mobility and Balance Start: 07/05/19 14:04 Freq: Status: Active Protocol: Document 07/05/19 14:04 CGR (Rec: 07/05/19 14:31 CGR [id number]) OT-Transfer Assessment Comments Mobility Comments Attempted supine to sit with 2 person assist but pt refused after moving LE. Pt states pain with all movement and requests that he be left alone . OT- Gait Assessment Comments Gait Ability Comments Not assessed M8 OT- IP Objective Assessments Start: 07/05/19 14:04 Freq: Status: Active Protocol: Document 07/05/19 14:04 CGR (Rec: 07/05/19 14:31 CGR [id number]) OT Gross Range of Motion Upper Extremity Range of Motion ROM Impairments Pt performed finger to nose when trying to place his o2 but appears clumsy. Noted ROM for hand to mouth and hand to nose to BUE but pt refused further ROM. OT Strength Comments Strength Comments Pt performed hand squeeze with 3+/5 OT- Coordination Assessment Comments Coordination Comments Pt able to get hand to nose when adjusting his o2 tubing but then had difficulty getting hand to nose when asked and instead reached his chin. OT-Muscle Tone Assessment Muscle Tone WNL Yes OT Sensation Assessment Comments Summary Comments Pt is hyper sensitive to touch and movement with increased pain. M9 OT- IP Assessment and Plan Start: 07/05/19 14:04 Freq: Status: Active Protocol: Document 07/05/19 14:04 CGR (Rec: 07/05/19 14:31 R [id number]) OT Summary Assessment and Plan Potential Rehabilitation Potential Fair Analytic Complexity at Evaluation Moderate Summary OT Impairments Pain,Range of Motion,Strength, Balance,Coordination,Sensation ,Functional Cognition, Functional Mobility,Grooming, Dressing,Toileting,Bathing, Toilet Transfers,Shower Transfers Progress Towards Goals Slow Progress due to Pain,Slow Progress due to Medical Issues,Slow Progress due to Activity Tolerance,Slow Progress due to Cognition Assessment Summary Pt presents as a moderate complexity evaluation. Pt currently with minimal participation and increased pain with all movement and touch. Limited eval d/t poor participation. Pt will continue to benefit from OT services. Recommend ADLs in bed and progress to functional mobility as able and is safe. Pt will likely need rehab upon discharge. Goals Grooming Goal Independent Dressing Goal Independent Toileting Goal Independent Bathing Goal Minimal Assistance Toilet Transfer Goal Independent Shower Transfer Goal Minimal Assistance Days to Meet Goals 10 Frequency of Treatment Frequency Of Treatment Once a Day Treatment Plan OT Treatment Plan ADL Training,Functional Cognition Training,Functional Mobility,Patient/Family Education,Discharge Planning Other Treatment Recommendations and Next In bed or bedside ADLs till Treatment Focus functional mobility increases. Discharge Recommendations OT Discharge Recommendations SNF Rehab Home Equipment Needs TBD
[2019-07-05] MEDS: ROSUVASTATIN 10 MG TABLET PO (17:12)
[2019-07-05] MEDS: glipiZIDE 5 MG TABLET PO (17:12)
[2019-07-05] MEDS: TAMSULOSIN 0.4 MG CAPSULE PO (17:12)
[2019-07-05] MEDS: ISOSORBIDE MONONITRATE ER 30 MG TABLET PO (17:12)
[2019-07-05] MEDS: AMIODARONE 100 MG TABLET PO (17:12)
--- NOTE | 2019-07-05 17:17 | PC.NURSE ---
Addendum entered by Belkis Bradley R.N. 07/05/19 19:56: Called spouse and left message for return call to notify of patient's new room. Addendum entered by Belkis Bradley R.N. 07/05/19 19:39: Patient transferred to room 216. Patient taken upstairs in bed by nursing staff with all belongings. Report given to receiving ROHIT Varela. Addendum entered by Belkis Bradley R.N. 07/05/19 18:50: 1845 - Attempted to reposition patient in bed. Patient did not tolerate movement well. Only able to pull patient up in bed, refused any further movement. Unable to visualize bottom at this time. Physician updated at 0 that patient is refusing to be moved and turned. Addendum entered by Belkis Bradley R.N. 07/05/19 18:37: 1830 - Son Chip called and stated that the family and him are wishing to have patient transfer to . States he has talked to and his primary physician and that they would like to move that direction and talk to the physician. Physician updated and stated that family would have to initiate and get an accepting physician. Updated coordinator and called son Chip back. Chip stated that they have started the process with and will know more in the morning. Original Note: 1714 - Attempted again to reposition patient. Patient flat out refused to even have the head of bed lowered at this time. Yells angrily when approached. Discussed risks of pressure sores with no movement. Patient continues to resist care. Will reapproach after pain medications.
[2019-07-05] MEDS: VANCOMYCIN TROUGH 1 REQUEST MISC (18:09)
[2019-07-05 18:32] LABS: Vancomycin Trough 9.3 ug/mL (10-20)
[2019-07-05 18:47] LABS: Estimated Glomerular Filt Rate 41.4 mL/min (>60)
[2019-07-05] MEDS: VANCOMYCIN 750 MG/150 ML FROZ.PIGGY 150 MG IV (19:00)
--- NOTE | 2019-07-05 19:48 | P.PN_ITS ---
Subjective Subjective Date Patient Seen: 07/05/19 Time Patient Seen: 08:45 Interval history: He is seen today to follow-up his congestive heart failure, lower extremity cellulitis, over-sedation, low back pain. He was improved today slightly and did not report any worsening of his back pain this morning. He said that he felt quite better and his lower extremity edema and breathing had improved. His urine culture has also come back growing Klebsiella so ceftriaxone has been started. Exam Vital Signs (past 8 hours): - 07/05/19 12:21 07/05/19 15:00 07/05/19 16:00 Temperature 97.8 F 97.9 F Pulse Rate 75 67 Respiratory Rate 16 18 Blood Pressure 96/64 122/51 L Pulse Oximetry 94 93 Oxygen Delivery Method Nasal Cannula Oxygen Flow Rate 3 Narrative Exam Narrative: GENERAL APPEARANCE: Elderly male, no acute distress SKIN: Inspection of the skin reveals no rashes, ulcerations or petechiae. HEENT: The sclerae were anicteric and conjunctivae were pink and moist. E xtraocular movements were intact and pupils were equal, round with normal accommodation. External inspection of the ears and nose showed no scars, lesions, or masses. Lips, teeth, and gums showed normal mucosa. The oral mucosa, hard and soft palate, tongue and posterior pharynx were unremarkable. NECK: Supple and symmetric. There was no thyroid enlargement, and no tenderness, or masses were felt. CHEST: Normal AP diameter and normal contour without any kyphoscoliosis. LUNGS: Auscultation of the lungs revealed no wheezes, rhonchi, or rales. CARDIOVASCULAR: There was a regular rate and rhythm without any murmurs, gallops, rubs. Peripheral pulses were 2+ and symmetric. ABDOMEN: Soft and nontender with normal bowel sounds. No ascites was noted. MUSCULOSKELETAL: There was no tenderness or effusions noted. Muscle strength and tone were normal. EXTREMITIES: No cyanosis, clubbing or edema. NEUROLOGIC: Alert and oriented x 3. Normal affect. Gait was normal. Strength is +5/5 in the Upper Extremities and Lower Extremities Bilaterally. Sensation to touch was normal. He was seen repeatedly during the day, 1st in his regular hospital were room and then later in the intensive care unit. When alert and awake he was very disturbed, vocalizing whenever he was touched or moved. He clearly is in severe low back pain. He is alert and oriented during many of the visits although was over-sedated ea rly this morning and during the code stroke. Heart is regular rate and rhythm with a 2/6 systolic murmur Lungs are clear to auscultation bilaterally on initial exam There is trace bilateral pitting ankle edema The left lower leg is darker red color than the right side. The scabs/superficial ulcers appear to be improving. There is some leakage of serous fluid from the left ankle calf. Objective Labs Result Diagrams: 07/03/19 06:04 07/05/19 17:45 Labs: Laboratory Results - last 24 hr 07/05/19 07/05/19 17:45 17:45 Creatinine 1.60 H Estimated GFR 41.4 L Vancomycin Trough 9.3 L Assessment & Plan Assessment & Plan narrative: Oversedation -code stroke evaluation was done, he has improved -CT of the brain shows no acute bleed -he recovers back to his baseline with 2 doses of Romazicon -he should not receive further lorazepam and his opiate use should be very minimal. This is quite problematic with his severe low back pain. This was discussed with his son. Klebsiella UTI -started on ceftriaxone today 07/05 -[place] catheter placed at his request due to diuresis demands. Bilateral Calf Ulcers/cellulitis -Continue IV Vancomycin, and ceftriaxone may be of some assistance as well. -he is treated with Eliquis so a DVT is unlikely Persistent Atrial Fibrillation, chronic, present on admission. patient is on amiodarone therapy. -Continue Eliquis and Amiodarone -INR was 1.7 Congestive Heart Failure, clinically unable to be determined, Echocardiogram was done today and reading is still pending, likely computer error will check with biofuels production technician tomorrow for report. -Continue IV Lasix Acute Hypoxic Respiratory Failure, improved. Secondary to acute on chronic heart failure exacerbatino. -this was complicated today by hypercapnic failure due to respiratory suppression of over-sedation. -he appears to be back to his baseline oxygenation with reversal of the benzodiazepine. Diabetes Mellitus 2 -Continue Lantus and Glipizide and follow blood sugars AC and HS. Hypertension -Continue Hydralazine and Isosorbide Hyperlipidemia -Continue Crestor Elevated Troponin / type II OK -Presumably secondary to LEANN/CKD -Repeat Troponin was down to 0.081. -Consider Heparin Drip for NSTEMI if troponin rises or if he develops chest pain. -Echocardiogram reading from 07/04 is pending BPH -Continue Tamsulosin Severe Low Back Pain -lumbar spine x-rays did not show compression fractures. -PT evaluation -consider additional imaging with CT for compression fractures if persistent pain Code Status -DNR Regular floor.
--- NOTE | 2019-07-05 21:04 | PC.NURSE ---
patient refuses turn even after given the explanation to what the results would be if refusing turns
--- NOTE | 2019-07-05 22:33 | PC.NURSE ---
TIAGO SHIFT: A&O to self and place. pt does not know the date/year. pt allowed us to turn him once this shift. pt has a non-blanchable pressure injury to his bottom. no open area.
[2019-07-06] VITALS (16 sets, daily range): BP systolic 104–128; BP diastolic 53–70; PULSE 64–71; RESP 12–20; TEMP 36.3–36.8; O2SAT 80–99
[2019-07-06] MEDS: OXYCODONE IR 5 MG TABLET PO ×3 (00:54→11:08)
--- NOTE | 2019-07-06 01:13 | PC.NURSE ---
Addendum entered by Martha Pickett R.N. 07/06/19 06:48: Cries out whenever moved in even slightest way but usually stops after movement stopped. This morning continues to cry out so medicated with Oxycodone. States pain is in lower back and rates severity as 10/10. Original Note: Patient occasionally responds to questions but is delayed with word finding difficulty. Did know name, birthdate and place. Breath sounds diminished throughout. Oxygen at 3L/min per NC with sat of 98% although found to with desat into 80's and is mouth breathing so oxygen cannula placed in mouth. HRR. 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 BT hypoactive and has not had BM since 07/01. Indwelling catheter is patent with clear, dark, yellow urine. Red/purple discoloration to coccyx with skin sloughing off. Erythema bilateral LE left > right. Lesions noted on right anterior leg; reportedly has weeping from extremities. Whenever bed repositioned patient cries out. States he is having back pain but unable to provide numerical severity; FLACC is 4 so medicated with Oxycodone. Needs repositioning q2h due to pressure area and, although patient cries out, does not resist when turned. Fall risk score is high and bed alarm is activated.
[2019-07-06] MEDS: LIDOCAINE PATCH 1 EACH ADH..PATCH TOP (09:50)
[2019-07-06] MEDS: SODIUM CHLORIDE 0.9% 250 ML 21 ML IV (10:00)
[2019-07-06] MEDS: MUPIROCIN 22 GM OINT 1 APPLIC TOP ×2 (10:00→20:26)
[2019-07-06] MEDS: INSULIN GLARGINE 100 UNIT/ML 3ML PEN 16 UNIT SUBCUT (10:07)
[2019-07-06] MEDS: SODIUM CHLORIDE 0.9% FLUSH 10 ML IV ×4 (10:13→20:27)
[2019-07-06] MEDS: FUROSEMIDE 40 MG/4 ML VIAL IV (10:13)
[2019-07-06] MEDS: CHOLECALCIFEROL (VITAMIN D3) 1,000 UNIT TABLET 1000 UNIT PO (10:13)
[2019-07-06] MEDS: HYDRALAZINE 10 MG TABLET PO ×3 (10:13→20:25)
[2019-07-06] MEDS: APIXABAN 5 MG TABLET 2.5 MG PO ×2 (10:14→20:36)
[2019-07-06] MEDS: DOCUSATE 100 MG CAPSULE PO ×2 (10:15→20:24)
[2019-07-06] MEDS: MAGNESIUM OXIDE 400 MG TABLET PO (10:15)
[2019-07-06] MEDS: POTASSIUM CHLORIDE 10 MEQ TAB 20 MEQ PO (10:15)
--- NOTE | 2019-07-06 10:16 | OT.IP.TRT ---
Current Diagnoses Heart failure, unspecified (07/02/19) Occupational Therapy Treatment Note M2 OT-IP Current Condition Start: 07/05/19 14:04 Freq: Status: Active Protocol: Document 07/05/19 14:04 CGR (Rec: 07/05/19 14:31 CGR [id number]) Occupational Therapy Current Condition Current Condition Evaluation Date 07/05/19 Treatment Diagnosis BLE cellulitis, hypoxia, recent fall, chf exacerbation M3 OT- IP Subjective and Pain Start: 07/05/19 14:04 Freq: Status: Active Protocol: Document 07/06/19 10:11 [facility] (Rec: 07/06/19 10:16 [facility] [id number]) OT- Subjective Occupational Therapy Visit Type Type Administrative Note Notes Per physician, place pt on HOLD at this time for therapy. To recheck with physician if appropriate for OT tomorrow.
[2019-07-06] MEDS: CEFTRIAXONE 1 GM/50 ML FROZ.PIGGY IV (10:30)
--- NOTE | 2019-07-06 10:32 | PT-IP ANOTE ---
pt on hold for PT per MD during rounds, pending CT scan.
--- NOTE | 2019-07-06 10:34 | PT-IP ANOTE ---
pt on hold for PT per MD during round. Pt is going to have imaging done for possible fracture.
--- NOTE | 2019-07-06 10:34 | PT-IP ANOTE ---
pt on hold for PT per MD during rounds. Pt is going to have imaging done for possible fracture during rounds.
[2019-07-06] MEDS: METHOCARBAMOL 500 MG TABLET PO ×2 (11:08→20:24)
--- NOTE | 2019-07-06 11:27 | DI.CT.S_ITS ---
PROCEDURE: CT LUMBAR SPINE WO CON INDICATIONS: severe low back pain, known hardware and now decub ulcer TECHNIQUE: Noncontrast 3 mm thick sections acquired from the T12 level to the sacrum. Sagittal and coronal reformats were constructed. For radiation dose reduction, the following was used: automated exposure control. COMPARISON: [facility], CT, KIDNEY/ URETER/BLADDER, 10/29/2011, 10:30. [facility], CT, ABDOMEN W&WO CONTRAST, 11/08/2016, 11:20. [facility], CR, XR LUMBAR SPINE 2-3V, 07/04/2019, 17:28. FINDINGS: Image quality: Streak artifact from the patient's elbows as well as from the metallic hardware. Bones: No acute vertebral body compression fractures. No suspicious lytic or blastic bony lesions. There is a likely bone island is seen within the right ischial tuberosity, as on series 2 image 168 which is stable compared to 2012. Extensive lower thoracic hardware is seen, with numerous bilateral pedicle screws. There is a metallic strut graft seen with corpectomy change involving T7, T8, and T9. No definite findings of hardware failure or hardware loosening can be seen. There has been removal of portions of the posterior elements within the mid to lower thoracic spine as well as within the lower lumbar spine. Bone grafting material is noted. Mild levoconvex lumbar scoliosis is seen. Moderate to severe disc space narrowing can be seen throughout the lumbar spine. Prominent bridging endplate osteophytes are seen. At least moderate neural foraminal narrowing can be seen at L1-L2, L3, and L3-L4. Grade 1 anterolisthesis is seen at L5-S1, yet without kamla pars defects seen. There is a left hip arthroplasty seen. Soft tissues: No retroperitoneal masses or hematomas. There is a water density cyst seen involving the inferior left kidney that measures 4.7 cm. Smaller simple appearing cysts are seen elsewhere. Along the medial aspect of the right kidney, there is a 2.4 cm lesion seen that measures 22 Hounsfield units, which cannot be defined as a simple cyst. Visualized aorta is normal in caliber. Atherosclerotic calcification is noted. Small bilateral pleural effusions are seen, left worse than right. Consolidation can be seen within the dependent left lung base, which is attributed to atelectasis. There is calcification seen of the mitral valve annulus. A Pennington catheter is seen. Numerous pelvic phleboliths are seen. On these images, the clinically apparent decubitus ulcer is not definitely seen. No kamla bony involvement can be seen in the sacrum or elsewhere. IMPRESSION: Extensive postoperative and degenerative changes are seen. No kamla acute abnormality can be seen of the visualized thoracic spine or the lumbar spine. Bilateral pleural effusions are seen, with associated likely atelectasis involving the left lower lobe. There is a lesion involving the medial right kidney, which cannot be defined as a simple cyst, yet may represent a complex cyst. Bilateral simple renal cysts are seen elsewhere. This patient's decubitus ulcer is not well-seen on these images. Incidental note is made of: Atherosclerotic calcification Pennington catheter Dictated by: Anders Pham M.D. on 07/06/2019 at 13:39 Approved by: Anders Pham M.D. on 07/06/2019 at 13:49
--- NOTE | 2019-07-06 12:34 | PC.NURSE ---
Day Shift- Pt's son Chip called unit and updated via phone at [phone]. Pt's Leah called and updated via phone at 1030. Pt's son Chau arrived this AM, requesting pt be transferred to for treatment. Dr. Larry updated with this information around 0930. Chau states he has already been in touch with the transfer center and that the MD needs to initiate the transfer by physician to physician. Pt alert, oriented to name, , place. Very painful with repositioning, pt refuses and calls out to stop or says no. Importance of repositioning discussed with slow movements and support of the MARIBEL bed tilt and staff members. Around [phone]. pt repositioned onto left side, Dr. Larry able to assess buttock wound and back. Pt has 2 intact and 1 non intact blister to coccyx, upper buttock fold area. Redness and purple bruising present, blanchable, tender to touch. Redness extends on left side proximal to buttock to lower back. 2 pictures taken with Acute Care unit camera. Spoke with Dr. Larry regarding pre-medicating pt prior to CT scan. New orders rec'd for 1 time dosing. Oxycodone 5mg po and Robaxin 500mg po given at 1108. Pt to CT scan at 1210 via bed and back at 1230.
[2019-07-06] MEDS: VANCOMYCIN 750 MG/150 ML FROZ.PIGGY 150 MG IV (14:28)
[2019-07-06] MEDS: ACETAMINOPHEN 325 MG TABLET 650 MG PO (16:47)
[2019-07-06] MEDS: TAMSULOSIN 0.4 MG CAPSULE PO (16:48)
[2019-07-06] MEDS: ISOSORBIDE MONONITRATE ER 30 MG TABLET PO (16:48)
[2019-07-06] MEDS: ROSUVASTATIN 10 MG TABLET PO (16:48)
[2019-07-06] MEDS: AMIODARONE 100 MG TABLET PO (16:49)
[2019-07-06] MEDS: glipiZIDE 5 MG TABLET PO (16:57)
--- NOTE | 2019-07-06 16:57 | CM.DPC ---
DCP continues: ANGIE spoke with patients Son Chau at [phone] to discuss D/C plan with him. Patients son stated if his father is transferred to a [place] hospital for care that when he d/c from there he would like his dad to go to a SNF in [place] to avoid a long transport back to the [place] for a SNF. But if his father stays here at [facility] then he would like to keep him at SNF close by. ANGIE Left a message for Tracy at [facility] to see if they will accept patient once he is medically stable. D/C plan is to either D/C to a SNF when medically stable or patient might be transferred to [place] for more advanced care. PASRR completed. Ashley Osborne RN
--- NOTE | 2019-07-06 18:23 | P.PN_ITS ---
Subjective Subjective Date Patient Seen: 07/06/19 Time Patient Seen: 18:24 Interval history: He is seen today to follow-up his congestive heart failure, lower extremity cellulitis, over-sedation, low back pain. This morning when I walked in the room he was in severe back pain and did not want to be touched. I ordered him for a CT of his lumbar spine to evaluate for the possibility of a compression fracture. This study was actually quite reassuring and did not show any infectious or structural abnormalities which was a concern given his history of back surgeries and hardware. He was given Robaxin and opiate prior to CT scan in anticipation of the movement, and this seemed to help control his pain slightly but he still has intermittent spasms of pain. I have added continuous Robaxin at this time to help control his pain as well as a lidocaine patch. His pain may be related to a new pressure ulcer which is developing on his sacral area that showed blisters today. We need to control his low back pain so that he can work with physical therapy. His cellulitis and congestive heart failure are improving with diuresis but he still needs to have some volume removed at this time. He gets profoundly sleepy when his pain is controlled which leads to some apnea and grogginess. Exam Vital Signs (past 8 hours): - 07/06/19 12:00 07/06/19 15:00 07/06/19 16:49 Temperature 98.1 F 97.5 F L Pulse Rate 71 70 69 Respiratory Rate 12 16 Blood Pressure 125/70 122/66 128/70 Pulse Oximetry 93 88 L 95 07/06/19 18:10 Temperature Pulse Rate Respiratory Rate Blood Pressure Pulse Oximetry 94 Oxygen Delivery Method Nasal Cannula Oxygen Flow Rate 3 Narrative Exam Narrative: GENERAL APPEARANCE: Elderly male, chronically ill appearing, kaylynn ears uncomfortable. SKIN: Inspection of the skin reveals an erythematous area over his sacrum with blistering consistent with pressure. There does not appear to be any purulence but this area is quite tender. HEENT: The sclerae were anicteric and conjunctivae were pink and moist. Extraocular movements were intact and pupils were equal, round with normal accommodation. External inspection of the ears and nose showed no scars, lesions, or masses. Lips, teeth, and gums showed normal mucosa. The oral mucosa, hard and soft palate, tongue and posterior pharynx were unremarkable. NECK: Supple and symmetric. There was no thyroid enlargement, and no tenderness, or masses were felt. CHEST: Normal AP diameter and normal contour without any kyphoscoliosis. LUNGS: Auscultation of the lungs revealed no wheezes, rhonchi, or rales. CARDIOVASCULAR: There was a regular rate and rhythm without any murmurs, gallops, rubs. Peripheral pulses were 2+ and symmetric. ABDOMEN: Soft and nontender with normal bowel sounds. No ascites was noted. MUSCULOSKELETAL: He is tender over his lower back, there is significant muscle tightness and there was midline tenderness this morning. EXTREMITIES: LLE erythema improved since prior examination, as has bilateral LE edema still with L > R. NEUROLOGIC: Alert and oriented x 3. Groggy. Objective Labs Result Diagrams: 07/03/19 06:04 07/05/19 17:45 Labs: Laboratory Results - last 24 hr 07/05/19 07/05/19 17:45 17:45 Creatinine 1.60 H Estimated GFR 41.4 L Vancomycin Trough 9.3 L Assessment & Plan Assessment & Plan narrative: This is an 83-year-old male patient with a history of hypertension, hyperlipidemia, insulin-dependent diabetes, CHFpEF and atrial fibrillation who was admitted for cellulitis and acute on chronic diastolic heart failure. His course was complicated by over sedation after giving pain medications for worsened low back pain which has been recent, and his back pain is now limiting his ability to work with physical therapy. 1. Bilateral Calf Ulcers/cellulitis -wound culture has grown Klebsiella oxytoca which is sensitive to ceftriaxone. Will discontinue vancomycin today. He has been showing improvement with IV therapy. -continue IV ceftriaxone at this time. -he is treated with Eliquis so a DVT is unlikely 2. Congestive Heart Failure, diastolic, acute on chronic. -he still appears volume overloaded and requires diuresis at this time. -Continue IV Lasix 3. Low back pain -this is likely muscle spasms in the setting chronic back pain and multiple prior surgeries as well as a new pressure ulcer over his sacrum. This is been worse over the past 2 weeks as he is largely not been walking and sitting on the in the recliner. We need to get his back pain controlled to the he would work with physical therapy, however this is proving difficult. His course was complicated by apnea following treatment for his back pain. I think the best treatment would be for physical therapy but that has been on reasonable given his complaints of pain. -continue Robaxin standing at 500 mg t.i.d. -continue oxycodone q.6 hours as needed -consider addition of gabapentin or pregabalin as next agent - continue PT - frequent turning and try to get OOB to chair 4. Persistent Atrial Fibrillation, chronic, present on admission. patient is on amiodarone therapy. -Continue Eliquis and Amiodarone -INR was 1.7 5. Acute Hypoxic Respiratory Failure, improved. Secondary to acute on chronic heart failure exacerbation. 6. Diabetes Mellitus 2, on machine long goods helper insulin -Continue Lantus and Glipizide and follow blood sugars AC and HS. 7. Hypertension, chronic -Continue Hydralazine and Isosorbide 8. Hyperlipidemia -Continue Crestor 9. Elevated Troponin / type II CT -Presumably secondary to LEANN/CKD -Repeat Troponin was down to 0.081. -Consider Heparin Drip for NSTEMI if troponin rises or if he develops chest pain. -Echocardiogram reading from 07/04 is pending 10. BPH -Continue Tamsulosin Code Status -DNR Regular floor.
[2019-07-06] MEDS: POLYETHYLENE GLYCOL 3350 17 GM POWD.PACK PO (20:27)
--- NOTE | 2019-07-06 22:12 | PC.NURSE ---
A&O to self, year and place. mouth breathing, 3L 97%. cont pulse ox. desat to low 80's on RA. repositioned pt q2hr. pt did not tolerate well due to back pain. lidocaine patch removed at 2100. pt ate 40% of his dinner meal. pills taken with applesauce. BLE elevated. call light in reach. bed alarm active.
--- NOTE | 2019-07-06 23:30 | PC.NURSE ---
attempted to start an new IV on RUE twice, but failed. Right forearm IV still intact and flushing well.
[2019-07-07] VITALS (14 sets, daily range): BP systolic 106–135; BP diastolic 53–74; PULSE 56–71; RESP 15–19; TEMP 36.3–36.7; O2SAT 86–99
[2019-07-07] MEDS: OXYCODONE IR 5 MG TABLET PO ×3 (00:57→16:06)
--- NOTE | 2019-07-07 01:33 | PC.NURSE ---
Addendum entered by Martha Pickett R.N. 07/07/19 05:32: Continues to cry out whenever moved. States pain 10/10 in lower back so medicated with morning dose of Methocarbomol. Original Note: Patient more alert today and conversant. Still with some delayed responses but more appropriate. Knew name, birthdate, age, place and year. Able to carry on a conversation and following commands tonight. Breath sounds still diminished but CTA and seems to get SOB with activity. Currently on 3L/min oxygen per NC with sat of 96%. HRR; telemetry reading was SR w/BBB and prolonged QT. Denies nausea. BT hypoactive and has not had a BM since 07/01; received Colace and Miralax yesterday. Indwelling catheter is patent; urine is clear yellow. Allevyn dressing to coccyx is CDI. Bilateral LE still reddened but color is duller. No drainage noted at this time. Continues to cry out and moan with any movement however slight. States pain in lower back is 10/10. Informed of need to continue to reposition q2h due to breakdown on coccyx. Patient verbalizes that staff is being mean but then reports understanding of need to move. Rates pain severity as 10/10 so medicated with Oxycodone. States he just wants it to be over. 2+ edema in left LE and trace in right LE. Fall risk score is high and bed alarm is activated.
[2019-07-07] MEDS: METHOCARBAMOL 500 MG TABLET PO ×3 (05:17→21:47)
[2019-07-07 06:40] LABS: Add Manual Diff / Slide Review NO; Basophils Absolute Auto 0 /uL (0-100); Basophils Percent Auto 0.4 % (0-2); Eosinophils Absolute Auto 100 /uL (0-450); Eosinophils Percent Auto 1.4 % (2-4); Hematocrit 37.3 % (41-53); Hemoglobin 12.1 g/dL (13.5-17.5); Lymphocytes Absolute Auto 400 /uL (1100-4500); Lymphocytes Percent Auto 4.7 % (25-40); Mean Corpuscular HGB Conc 32.4 % (30-36); Mean Corpuscular Hemoglobin 33.6 PG (26-34); Mean Corpuscular Volume 103.8 fL (80-100); Monocytes Absolute Auto 1000 /uL (0-900); Monocytes Percent Auto 10.4 % (3-14); Neutrophils Absolute Auto 7700 /uL (1500-7000); Neutrophils Percent Auto 83.1 % (50-75); Platelet Count 116 X10^3/uL (150-400); Red Blood Cell Count 3.59 X10^6/uL (4.5-5.9); Red Cell Distribution Width 15.3 % (11.6-14.8); White Blood Cell Count 9.3 X10^3/uL (4.5-11.0)
[2019-07-07 06:44] LABS: BUN Creatinine Ratio 38.8 (6-22); Blood Urea Nitrogen 62 mg/dL (9-20); Calcium 9.7 mg/dL (8.4-10.2); Chloride 94 mmol/L (98-107); Estimated Glomerular Filt Rate 41.4 mL/min (>60); Glucose 96 mg/dL (80-110); HEMOLYSIS < 15 (0-50); Magnesium 2.1 mg/dL (1.6-2.3); Phosphorous 3.8 mg/dL (2.3-3.7); Potassium 4.1 mmol/L (3.4-5.1); Sodium 139 mmol/L (137-145)
[2019-07-07 06:55] LABS: Carbon Dioxide 40 mmol/L (22-32)
[2019-07-07] MEDS: FUROSEMIDE 40 MG/4 ML VIAL IV (09:09)
[2019-07-07] MEDS: SODIUM CHLORIDE 0.9% FLUSH 10 ML IV ×3 (09:09→21:56)
[2019-07-07] MEDS: APIXABAN 5 MG TABLET 2.5 MG PO ×2 (09:13→21:55)
[2019-07-07] MEDS: POTASSIUM CHLORIDE 10 MEQ TAB 20 MEQ PO (09:14)
[2019-07-07] MEDS: DOCUSATE 100 MG CAPSULE PO ×2 (09:14→21:48)
[2019-07-07] MEDS: CHOLECALCIFEROL (VITAMIN D3) 1,000 UNIT TABLET 1000 UNIT PO (09:14)
[2019-07-07] MEDS: MAGNESIUM OXIDE 400 MG TABLET PO (09:14)
[2019-07-07] MEDS: INSULIN GLARGINE 100 UNIT/ML 3ML PEN 16 UNIT SUBCUT (09:21)
[2019-07-07] MEDS: HYDRALAZINE 10 MG TABLET PO ×3 (09:23→21:48)
[2019-07-07] MEDS: ACETAMINOPHEN 325 MG TABLET 650 MG PO ×2 (09:24→17:44)
[2019-07-07] MEDS: POLYETHYLENE GLYCOL 3350 17 GM POWD.PACK PO (09:24)
[2019-07-07] MEDS: MUPIROCIN 22 GM OINT 1 APPLIC TOP ×3 (09:30→21:57)
[2019-07-07 09:52] LABS: Fractionated Inspired Oxygen 28; HCO3 ABG 38 mmol/L (22-26); Oxygen Saturation ABG 90 % (95-100); PCO2 ABG 60.3 mmHg (35-45); PO2 ABG 61 mmHg (80-100); TCO2 ABG 40 mmol/L (21-31); pH ABG 7.41 (7.35-7.45)
[2019-07-07] MEDS: NYSTATIN POWDER 15GM 1 APPLIC TOP (10:06)
[2019-07-07] MEDS: LIDOCAINE PATCH 1 EACH ADH..PATCH TOP (10:10)
--- NOTE | 2019-07-07 10:45 | PT-IP ANOTE ---
Pt refused all mobility, due to pain. Will attempt in AM.
--- NOTE | 2019-07-07 11:01 | PC.NURSE ---
Addendum entered by Yolanda Combs R.N. 07/07/19 15:43: pt one to one feed/water assist. Pt tolerating eating and taking meds whole with water at a low bed angle of 25-30 degrees. Pt's son Chip at bedside stated pt had a TIA 5 years ago and pt agreed with this. Reported to Dr. Larry around [address] Larry had spoke to Chip regarding potential transfer to for care. Evening RN aware and for the pt to be turned as pt refused OOB movement/repositioning with PT/OT at 1450. O2 sat 92% on 1L NC, evening RN aware of goal for O2 88% due to elevated CO2 levels today. Addendum entered by Yolanda Combs R.N. 07/07/19 12:45: Pt's son Chip arrived to pt's room around 1210, update given. Pt repositioned at this time. Dr. Larry aware at 1240 regarding Chip's arrival for an update. Addendum entered by Yolanda Combs R.N. 07/07/19 11:40: Per Dr. Larry verbal order at 1005, goal for O2 sat around 88%. O2 decreased to 1L NC, O2 sat then decreased from 93% on 2L to 90% on 1L NC. Original Note: Day Shift-Pt alert, oriented to name, , States Thanksgiving is the holiday coming up next. States he is at [facility]. Able to hold a conversation with eyes open and eye contact. States pain is terrible, I don't want to do this anymore, pt stated this to his son Chau on the phone this AM, this field underwriter, and Dr. Larry. Pt agreeable that if his pain is better controlled, he will feel better, support and encouragement provided. Pt O2 3l NC decreased to 2L NC this AM around 0705. Lab CO2 level 40, new orders for ABG's placed by physician. O2 sat 94% on 2L NC. Kept in nares as pt is awake. Dr. Larry in to see pt around 1005, aware of ABG results, Okay to change Robaxin from TID to Q8hr. BLE edema R>L. RLE 2+ pitting edema to mid calf. LLE 1+ non-pitting edema. BLE washed with warm mild soap water, pat dry and Bactroban applied per order. Moisturizer placed to feet. Pt does not tolerate repositioning well, anticipates pain, moans, calls out to stop or go slow. This field underwriter instructs pt on what action is to be done before doing. To inform pt. MARIBEL bed tilt used in turning. Coccyx allevyn dressing CDI, placed 07/06. pink skin to left lower back above dressing blanchable. Importance of repositioning every 2 hours to prevent PU instructed to pt. During conversation with pt and 07/06 with pt's son Chip, Pt had a fall a few weeks ago at home and has been in either his wheelchair or recliner at home. Will continue to monitor. Bed alarm on, call light and pt/hospital phone within reach.
--- NOTE | 2019-07-07 11:08 | CM.DPC ---
DCP SNF Planning: Per MD, pt's CHF and cellulitis have markedly improved and CT was reassuring and pt appropriate for PT today and pt continues to have low back pain and pain management issues which may also be exacerbated by alexis ulcers. SW called [facility] and confirmed that they can accept pt at discharge and SW went by pt room and no family bedside and per RN son Chip flying in from [facility] today and will be bedside sometime later in the day. PASRR was completed yesterday in anticipation of SNF. Plan: SW to follow for pt d/c to [facility] when medically stable and SW to follow for updated son of [facility] acceptance when bedside later today or tomorrow. MARSHA Zambrano
[2019-07-07] MEDS: SODIUM CHLORIDE 0.9% 250 ML 21 ML IV (11:20)
[2019-07-07] MEDS: CEFTRIAXONE 1 GM/50 ML FROZ.PIGGY IV (11:22)
--- NOTE | 2019-07-07 11:22 | OT.IP.TRT ---
Current Diagnoses Heart failure, unspecified (07/02/19) Occupational Therapy Treatment Note M2 OT-IP Current Condition Start: 07/05/19 14:04 Freq: Status: Active Protocol: Document 07/05/19 14:04 [facility] (Rec: 07/05/19 14:31 [facility] [id number]) Occupational Therapy Current Condition Current Condition Evaluation Date 07/05/19 Treatment Diagnosis BLE cellulitis, hypoxia, recent fall, chf exacerbation M3 OT- IP Subjective and Pain Start: 07/05/19 14:04 Freq: Status: Active Protocol: Document 07/07/19 11:19 [facility] (Rec: 07/07/19 11:22 [facility] [id number]) OT- Subjective Occupational Therapy Visit Type Type Patient Refusal Notes Attempted to see pt for OT treatment with NEW BUSINESS CLERK. Pt adamant of not getting up at this time due to pain. Explained the importance of pt trying to get up or at least sit up to help improve his breathing. Pt still not wanting move or do any therapy today. Informed physician that pt not wanting to do therapy. Per physician to still attempt to do therapy if pt willing.
--- NOTE | 2019-07-07 13:43 | PM.PN.1 ---
Subjective Subjective Date Patient Seen: 07/07/19 Time Patient Seen: 13:43 Interval history: He is seen today to follow-up his congestive heart failure, lower extremity cellulitis, over-sedation, low back pain. His lower extremity cellulitis has improved dramatically as has his lower extremity edema and shortness of breath. He still requires an additional bit of diuresis. He needs to work with physical therapy however his prolonged hospital stay and being in the bed has caused his back pain to flare up. We are working on controlling this now, and this is been difficult given that he had an apneic event due to over sedation with pain medication they required him to go to the ICU. Today we have changed around his Robaxin and is now q.8 hours scheduled, his Tylenol has been changed to standing and we will add gabapentin 300 mg tonight, and he still has Q 6 hour opiate pain control which does not seem to over sedate him. He refused physical therapy today. Exam Vital Signs (past 8 hours): - 07/07/19 08:00 07/07/19 09:56 07/07/19 10:14 Temperature 98.0 F Pulse Rate 62 Respiratory Rate 18 Blood Pressure 135/69 Pulse Oximetry 92 92 91 Oxygen Delivery Method Nasal Cannula Oxygen Flow Rate 1 Narrative Exam Narrative: GENERAL APPEARANCE: Elderly male, chronically ill appearing, appears uncomfortable. He is obese. SKIN: Inspection of the skin reveals an erythematous area over his sacrum with blistering consistent with pressure. There does not appear to be any purulence but this area is quite tender. HEENT: The sclerae were anicteric and conjunctivae were pink and moist. Extraocular movements were intact and pupils were equal, round with normal accommodation. External inspection of the ears and nose showed no scars, lesions, or masses. Lips, teeth, and gums showed normal mucosa. The oral mucosa, hard and soft palate, tongue and posterior pharynx were unremarkable. NECK: Supple and symmetric. There was no thyroid enlargement, and no tenderness, or masses were felt. CHEST: Normal AP diameter and normal contour without any kyphoscoliosis. LUNGS: Auscultation of the lungs revealed no wheezes, rhonchi, or rales. CARDIOVASCULAR: There was a regular rate and rhythm without any murmurs, gallops, rubs. Peripheral pulses were 2+ and symmetric. ABDOMEN: Soft and nontender with normal bowel sounds. No ascites was noted. MUSCULOSKELETAL: He is tender over his lower back, there is significant muscle tightness and there was midline tenderness this morning. EXTREMITIES: LLE erythema improved since prior examination, as has bilateral LE edema still with L > R but it is trace today. NEUROLOGIC: Alert and oriented. Groggy. Objective Labs Result Diagrams: 07/07/19 06:08 07/07/19 06:08 Labs: Laboratory Results - last 24 hr 07/07/19 07/07/19 07/07/19 06:08 06:08 09:38 WBC 9.3 RBC 3.59 L Hgb 12.1 L Hct 37.3 L MCV 103.8 H MCH 33.6 MCHC 32.4 RDW 15.3 H Plt Count 116 L Neut % (Auto) 83.1 H Lymph % (Auto) 4.7 L [place] % (Auto) 10.4 Eos % (Auto) 1.4 L Baso % (Auto) 0.4 Neut # (Auto) 7700 H Lymph # (Auto) 400 L [place] # (Auto) 1000 H Eos # (Auto) 100 Baso # (Auto) 0 ABG pH 7.41 ABG pCO2 60.3 H ABG pO2 61 L ABG HCO3 38 H ABG Total CO2 40 H ABG O2 Saturation 90 L ABG Base Excess 14.0 H FiO2 28 Sodium 139 Potassium 4.1 Chloride 94 L Carbon Dioxide 40 H* BUN 62 H Creatinine 1.60 H Estimated GFR 41.4 L BUN/Creatinine Ratio 38.8 H Glucose 96 Calcium 9.7 Phosphorus 3.8 H Magnesium 2.1 Assessment & Plan Assessment & Plan narrative: This is an 83-year-old male patient with a history of hypertension, hyperlipidemia, insulin-dependent diabetes, CHFpEF and atrial fibrillation who was admitted for cellulitis and acute on chronic diastolic heart failure. His course was complicated by over sedation after giving pain medications for worsened low back pain which has been recent, and his back pain is now limiting his ability to work with physical therapy. 1. Bilateral Calf Ulcers/cellulitis -wound culture has grown Klebsiella oxytoca which is sensitive to ceftriaxone. Will discontinue vancomycin today. He has been showing improvement with IV therapy. -continue IV ceftriaxone at this time. -he is treated with Eliquis so a DVT is unlikely 2. Congestive Heart Failure, diastolic, acute on chronic. -he still appears volume overloaded and requires diuresis at this time. Likely one more day of diuresis will suffice based on current trend. -Continue IV Lasix, transition to PO likely tomorrow. 3. Low back pain -this is likely muscle spasms in the setting chronic back pain and multiple prior surgeries as well as a pressure ulcer over his sacrum which is likely due to his prolonged immobilization over the past two weeks since a reported fall at home. We need to get his back pain controlled to the point he would work with physical therapy, however this is proving difficult and worsens by the day as he becomes more stiff while in his hospital bed. His course was complicated by apnea following treatment for his back pain. I think the best treatment would be for physical therapy but that has been unreasonable given his complaints of pain. Lumbar radiographs were unremarkable as was a CT of his lumbar spine to assess for potential compression fractures or other etiologies. -continue Robaxin standing at 500 mg q8, tylenol standing q6 -continue oxycodone q.6 hours as needed -add gabapentin 300 mg tonight - continue attempting to try PT - frequent turning and try to get OOB to chair 4. Persistent Atrial Fibrillation, chronic, present on admission. patient is on amiodarone therapy. -Continue Eliquis and Amiodarone -INR was 1.7 5. Acute Hypoxic Respiratory Failure, improved. Secondary to acute on chronic heart failure exacerbation. 6. Diabetes Mellitus 2, on nursing home insulin -Continue Lantus and Glipizide and follow blood sugars AC and HS. 7. Hypertension, chronic -Continue Hydralazine and Isosorbide 8. Hyperlipidemia -Continue Crestor 9. Elevated Troponin / type II [place] -Presumably secondary to LEANN/CKD -Repeat Troponin was down to 0.081. -Consider Heparin Drip for NSTEMI if troponin rises or if he develops chest pain. -Echocardiogram reading from 07/04 is pending 10. BPH -Continue Tamsulosin Code Status -DNR Regular floor.
--- NOTE | 2019-07-07 15:08 | OT.IP.TRT ---
Current Diagnoses Heart failure, unspecified (07/02/19) Occupational Therapy Treatment Note M2 OT-IP Current Condition Start: 07/05/19 14:04 Freq: Status: Active Protocol: Document 07/05/19 14:04 [facility] (Rec: 07/05/19 14:31 [facility] [id number]) Occupational Therapy Current Condition Current Condition Evaluation Date 07/05/19 Treatment Diagnosis BLE cellulitis, hypoxia, recent fall, chf exacerbation M3 OT- IP Subjective and Pain Start: 07/05/19 14:04 Freq: Status: Active Protocol: Document 07/07/19 15:03 [facility] (Rec: 07/07/19 15:06 [facility] [id number]) OT- Subjective Occupational Therapy Visit Type Type Patient Refusal Notes Prior to attempting to see pt again, coordinated with nursing for when pt would be getting pain medication again. Went with TOP WADDY to see pt. Pt's son Chip in the room and both wanting to talk to the Hospitalist. Son wanting pt to be transferred to . Notified nursing and physician of pt and son's request.
--- NOTE | 2019-07-07 15:33 | PT-IP ANOTE ---
Attempted to see pt x 2. Son state would like to speak with MD first. Returned and pt refused do to pain stated no, no, no when asked about mobility and educated on benefits.
[2019-07-07] MEDS: ISOSORBIDE MONONITRATE ER 30 MG TABLET PO (17:44)
[2019-07-07] MEDS: glipiZIDE 5 MG TABLET PO (17:45)
[2019-07-07] MEDS: AMIODARONE 100 MG TABLET PO (17:45)
[2019-07-07] MEDS: TAMSULOSIN 0.4 MG CAPSULE PO (17:45)
[2019-07-07] MEDS: ROSUVASTATIN 10 MG TABLET PO (17:45)
[2019-07-07] MEDS: GABAPENTIN 300 MG CAPSULE PO (21:48)
[2019-07-08] VITALS (12 sets, daily range): BP systolic 109–157; BP diastolic 54–85; PULSE 64–70; RESP 15–20; TEMP 36.4–37.1; O2SAT 70–97
[2019-07-08] MEDS: ACETAMINOPHEN 325 MG TABLET 650 MG PO ×3 (00:17→17:14)
--- NOTE | 2019-07-08 02:44 | PC.NURSE ---
Addendum entered by Martha Pickett R.N. 07/08/19 06:39: Late entry: noted skin tear on left posterior hand; dried blood cleansed from wound and left open to air. Addendum entered by Martha Pickett R.N. 07/08/19 05:58: Medicated with scheduled Tylenol + Methocarbomol. Patient states back pain while at rest is 8/10 and is sharp. Pain exacerbated by movement (just raising HOB) and states it is spasms. Addendum entered by Martha Pickett R.N. 07/08/19 04:06: Hollering out with movement again when repositioned so medicated with Oxycodone. Recheck on CBG was 81. Addendum entered by Martha Pickett R.N. 07/08/19 03:39: CBG checked at 0300 since hs CBG was only 87 and evening RN reported patient had eaten poorly and not had an hs snack. CBG was 56 so given milk and crackers. Original Note: Patient alert and able to communicate but still with STM loss. Affect seems flatter tonight. Breath sounds diminished with expiratory wheezes throughout; oxygen at 0.5L/min with sat now at 92%. Seems SOB with exertion. 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 Denies nausea. BT present but still has not had BM since 07/01 despite use of Colace + Miralax. Indwelling catheter with no UOP noted in tubing and minimal in catheter bag; discussed with Kathleen RUIZ, after which catheter was irrigated without difficulty and now urine is flowing freely. Repositioned q2h but still cries out with any movement. States back pain is 10/10 with movement but when not moving has a FLACC score of 0. Skin under pannus/groins is reddened and skin appears macerated; redness extends down into upper thighs. Bilateral LE with scabbed abrasions and small open areas; skin is still reddened but more dull color. 2+ edema in left LE. Fall risk score is high and bed alarm is activated.
[2019-07-08] MEDS: OXYCODONE IR 5 MG TABLET PO ×3 (04:04→20:46)
[2019-07-08] MEDS: METHOCARBAMOL 500 MG TABLET PO ×2 (05:55→17:15)
[2019-07-08 06:45] LABS: Add Manual Diff / Slide Review NO; Basophils Absolute Auto 0 /uL (0-100); Basophils Percent Auto 0.3 % (0-2); Eosinophils Absolute Auto 200 /uL (0-450); Eosinophils Percent Auto 2.8 % (2-4); Hematocrit 36.7 % (41-53); Hemoglobin 12.1 g/dL (13.5-17.5); Lymphocytes Absolute Auto 500 /uL (1100-4500); Lymphocytes Percent Auto 5.8 % (25-40); Mean Corpuscular HGB Conc 32.9 % (30-36); Mean Corpuscular Volume 103.6 fL (80-100); Monocytes Absolute Auto 800 /uL (0-900); Monocytes Percent Auto 9.6 % (3-14); Neutrophils Absolute Auto 7000 /uL (1500-7000); Neutrophils Percent Auto 81.5 % (50-75); Platelet Count 122 X10^3/uL (150-400); Red Blood Cell Count 3.54 X10^6/uL (4.5-5.9); Red Cell Distribution Width 15.1 % (11.6-14.8); White Blood Cell Count 8.6 X10^3/uL (4.5-11.0)
[2019-07-08 06:55] LABS: BUN Creatinine Ratio 44.3 (6-22); Blood Urea Nitrogen 62 mg/dL (9-20); Calcium 9.5 mg/dL (8.4-10.2); Chloride 91 mmol/L (98-107); Estimated Glomerular Filt Rate 48.3 mL/min (>60); Glucose 121 mg/dL (80-110); Magnesium 2.1 mg/dL (1.6-2.3); Phosphorous 3.3 mg/dL (2.3-3.7); Potassium 4.2 mmol/L (3.4-5.1); Sodium 137 mmol/L (137-145)
[2019-07-08 07:01] LABS: HEMOLYSIS < 15 (0-50)
[2019-07-08 07:06] LABS: Carbon Dioxide 41 mmol/L (22-32)
--- NOTE | 2019-07-08 08:00 | PC.NURSE ---
Day Shift- Night RN had rec'd critical CO2 of 41. JOSEPH Wang notified by this RN at 0720. Dr. Larry not available at this time. Dr. Larry notified at 0755.
[2019-07-08] MEDS: FUROSEMIDE 40 MG/4 ML VIAL IV (09:14)
[2019-07-08] MEDS: HYDRALAZINE 10 MG TABLET PO ×3 (09:15→20:47)
[2019-07-08] MEDS: POLYETHYLENE GLYCOL 3350 17 GM POWD.PACK PO (09:15)
[2019-07-08] MEDS: SODIUM CHLORIDE 0.9% FLUSH 10 ML IV ×3 (09:15→20:48)
[2019-07-08] MEDS: CHOLECALCIFEROL (VITAMIN D3) 1,000 UNIT TABLET 1000 UNIT PO (09:21)
[2019-07-08] MEDS: DOCUSATE 100 MG CAPSULE PO ×2 (09:21→20:46)
[2019-07-08] MEDS: POTASSIUM CHLORIDE 10 MEQ TAB 20 MEQ PO (09:21)
[2019-07-08] MEDS: APIXABAN 5 MG TABLET 2.5 MG PO ×2 (09:21→20:46)
[2019-07-08] MEDS: MAGNESIUM OXIDE 400 MG TABLET PO (09:21)
[2019-07-08] MEDS: LIDOCAINE PATCH 1 EACH ADH..PATCH TOP (09:23)
[2019-07-08] MEDS: INSULIN GLARGINE 100 UNIT/ML 3ML PEN 16 UNIT SUBCUT (09:54)
[2019-07-08] MEDS: NYSTATIN POWDER 15GM 1 APPLIC TOP (10:02)
[2019-07-08] MEDS: MUPIROCIN 22 GM OINT 1 APPLIC TOP ×3 (10:02→20:47)
--- NOTE | 2019-07-08 10:24 | PC.NURSE ---
Addendum entered by Yolanda Combs R.N. 07/08/19 16:01: Correction, plan to repeat ABG at 1330. At 1540 it was noted that pt did not have repeat ABG done, RT paged by evening RN, order was cancelled. Explained to RT a repeat ABG was ordered. At 1445, another RN was asked to give scheduled medications for pt, reported from RN that pt's did not want pt to have his Tylenol, Robaxin, Hydralazine at that time as pt was sleeping. Addendum entered by Yolanda Combs R.N. 07/08/19 11:53: At 1150, RT reported ABG PCO2 as 67.1. Dr. Larry aware of result at 1152 as well as RN Coordinator. Plan to repeat PCO2 at 1330. Addendum entered by Yolanda Combs R.N. 07/08/19 11:11: At 1105, Dr. Larry aware that family is present in room for update. Addendum entered by Yolanda Combs R.N. 07/08/19 10:56: Update given to pt's son Chip around 1050. Both Chip and pt's visiting pt in room. Original Note: Day Shift- Pt sleeping this AM until staff aroused around 09. Pt oriented to name, ELMER, states he is at [place], July. When asked the year, pt states July. High fall risk precautions in placed, bed alarm on. Pt does not use call light even within reach and with reminders, therefore frequent checks will be done. [place] insitu and draining without difficulty, urine present in bag. AE diminished throughout lung angelo, mild coarseness heard with auscultation to bases bilaterally. At 0707, O2 sat 90% on 0.5L NC currently in mouth as pt mouth breaths when asleep. O2 NC removed, pt decreased to 82% on RA, O2 sat increased to 85% on RA. O2 0.5L NC placed back in mouth. At 0711, O2 sat increased to 90% on 0.5L NC. Dr. Larry from 07/07 and again today states O2 sat goal of 88%. BS X4 very active, passing flatus. Scheduled and PRN Miralax given with AM meds. Coccyx allevyn dressing CDI, dated 07/06. Left outer mid buttock has red area, blanchable, skin intact. LLE edema 2+ pitting to calf, redness appears decreased from 07/07 assessment, Left lower outer leg has small wound with what appears to be slough, non weeping. RLE no edema present, redness around del angel with dry crusted wound to del angel and small wound to right lower inner leg, non weeping. BLE seem to be less tender today and pt had minimal moaning with washing BLE and placing scheduled bactroban. Feet washed and moisturizer placed, not in between toes. Pannus fold and bilateral groin red/pink, nystatin powder prn placed to left pannus area, pillow cases folded and placed to pannus and bilateral groin. Non tender. This marine underwriter in with pt from 0910 to 1005 providing care. This marine underwriter again explained importance of frequent repositioning to prevent further pressure injuries. Pt stated he felt terrible. Explained the BEAUTY SPECIALIST and I will get him to a recliner chair, pt did not refuse. Pt was able to sit upright in bed to 40 degrees prior to OOB movement. Pt did call out, moan, and became rigid and guarded, however less so that 2 previous days with repositioning. Pt OOB using ceiling lift with 3 PA to recliner chair, waffle cushion placed under buttocks while pt in chair. A pillow under each arm and 2 pillows under BLE. Chair alarm on. Call light with in reach. Pt ate 100% of breakfast, drank Brian drink and likes to drink ice water. Took his pills whole with water without difficulty. This marine underwriter asked if pt could use his arms to help feed himself, only slight movement off pillow from Right arm noted, pt stated I can't. BEAUTY SPECIALIST assisted with feeding pt while in recliner chair.
[2019-07-08] MEDS: CEFTRIAXONE 1 GM/50 ML FROZ.PIGGY IV (11:14)
[2019-07-08 11:48] LABS: pH ABG 7.42 (7.35-7.45)
[2019-07-08 11:50] LABS: HCO3 ABG 44 mmol/L (22-26); PCO2 ABG 67.1 mmHg (35-45); PO2 ABG 60 mmHg (80-100); TCO2 ABG 46 mmol/L (21-31)
[2019-07-08 11:51] LABS: Fractionated Inspired Oxygen 22; Oxygen Saturation ABG 90 % (95-100)
--- NOTE | 2019-07-08 12:20 | OT.IP.TRT ---
Current Diagnoses Heart failure, unspecified (07/02/19) Occupational Therapy Treatment Note M2 OT-IP Current Condition Start: 07/05/19 14:04 Freq: Status: Active Protocol: Document 07/05/19 14:04 [facility] (Rec: 07/05/19 14:31 [facility] [id number]) Occupational Therapy Current Condition Current Condition Evaluation Date 07/05/19 Treatment Diagnosis BLE cellulitis, hypoxia, recent fall, chf exacerbation M3 OT- IP Subjective and Pain Start: 07/05/19 14:04 Freq: Status: Active Protocol: Document 07/08/19 12:07 [facility] (Rec: 07/08/19 12:20 [facility] [id number]) OT- Subjective Occupational Therapy Visit Type Type Treatment Note Visit Start Time 11:47 Visit Stop Time 11:59 Total Visit Minutes 12 Occupational Therapy Visit Comments Patient Comments Pt already sitting up in the recliner via mechanical lift . Pt agreeable to be repositioned in the recliner. Patient/Caregiver Goals Pt states wants to go home. OT Pain Assessment Pain When Pain Assessed At Rest Pain Present Pain Present Pain Reported Location Lower Back Intensity 10 Scale Used Numeric (1 - 10) M4 OT- IP ADL's Start: 07/05/19 14:04 Freq: Status: Active Protocol: Document 07/08/19 12:07 [facility] (Rec: 07/08/19 12:20 [facility] [id number]) OT [id number] Comments OT Self-Feeding Comments Nursing aid having to feed pt for breakfast. SPoke to pt to encourage him to try to feed himself and that larger handled utensils can be given. At this time pt too tired and content for nursing aid to feed him. OT ADL-Grooming General Evaluation Grooming Ability Standby Assistance Comments OT Grooming Comments Pt able to wash his face and hands after set-up of wash cloth . Pt mainly using his left hand and not complaining of any pain at the time. M5 OT- IP IADL's Start: 07/05/19 14:04 Freq: Status: Active Protocol: Document 07/05/19 14:04 [facility] (Rec: 07/05/19 14:31 [facility] [id number]) OT-Instrumental Activities of Daily Living Deficits IADL Deficits Identified Deficits Home Safety Awareness Awareness of Need for Assistance at Home Decreased Awareness Ability to Problem Solve Emergency Unable to Problem Solve Situations M6 OT- IP Functional Cognition Start: 07/05/19 14:04 Freq: Status: Active Protocol: Document 07/08/19 12:07 [facility] (Rec: 07/08/19 12:20 [facility] [id number]) Cognitive Factors Limiting Selfcare Function Cognitive Ability Level of Alertness Alert,Drowsy Patient Orientation Name,Situation Attention Span Ability Capable of Focused Attention, Unable to Sustain Attention Ability to Follow Commands Able to Follow One Step Commands Cognitive Comments Cognitive Assessment Comments Pt very sleepy and falling asleep while trying to work with pt. Pt able to follow one step command with repetition and also needing tactile cues at time. M7 OT- IP Mobility and Balance Start: 07/05/19 14:04 Freq: Status: Active Protocol: Document 07/08/19 12:07 [facility] (Rec: 07/08/19 12:20 [facility] [id number]) OT- Balance Assessment Comments Other Balance Tests/Deviations/Treatment Pt leaning to the left in the : recliner, lateral tilt to the left and along with his head. With MAX AX 2 able to shift pt's weight to the right , so weight equally on his pelvis. Small towel roll placed on the left side to help sit pt more upright. Pt's O2 on .5 L from 84-88% M9 OT- IP Assessment and Plan Start: 07/05/19 14:04 Freq: Status: Active Protocol: Document 07/08/19 12:07 [facility] (Rec: 07/08/19 12:20 [facility] [id number]) OT Summary Assessment and Plan Potential Rehabilitation Potential Fair Analytic Complexity at Evaluation Moderate Summary OT Impairments Pain,Range of Motion,Strength, Balance,Coordination, Functional Cognition, Functional Mobility,Self- Feeding,Grooming,Dressing, Toileting,Bathing,Toilet Transfers,Shower Transfers Progress Towards Goals Slow Progress due to Pain,Slow Progress due to Medical Issues,Slow Progress due to Activity Tolerance,Slow Progress due to Cognition Assessment Summary Pt now able to tolerate sitting in the recliner via transfer from mechnical lift. Pt today able to partake in self -care and after encouragement however still needing extensive assist for all ADL needs due to pain and fatigue Goals Grooming Goal Standby Assistance Dressing Goal Moderate Assistance Toileting Goal Moderate Assistance Bathing Goal Moderate Assistance Toilet Transfer Goal Moderate Assistance Shower Transfer Goal Moderate Assistance Days to Meet Goals 15 Frequency of Treatment Frequency Of Treatment Once a Day Treatment Plan OT Treatment Plan ADL Training,Functional Cognition Training,Functional Mobility,Patient/Family Education,Discharge Planning Other Treatment Recommendations and Next Pt able to complete 50% of the Treatment Focus meal on his own with adaptive utensils. Discharge Recommendations OT Discharge Recommendations SNF Rehab,[facility]
--- NOTE | 2019-07-08 17:00 | PT-IP ANOTE ---
Pt was up in room side chair when arrived, son in room with him. Pt declined therapy today, stating to tired, weak, no pain when asked. Pt stated his goal is to get out of here. POMPOM MAKER asked if were to stop in tomorrow would be willing to work with therapy, you can, will see how it goes.
[2019-07-08 17:11] LABS: PO2 ABG 87 mmHg (80-100); pH ABG 7.41 (7.35-7.45)
[2019-07-08 17:12] LABS: HCO3 ABG 41 mmol/L (22-26); PCO2 ABG 64.8 mmHg (35-45); TCO2 ABG 43 mmol/L (21-31)
[2019-07-08 17:13] LABS: Oxygen Saturation ABG 96 % (95-100)
[2019-07-08 17:14] LABS: Fractionated Inspired Oxygen 28
[2019-07-08] MEDS: TAMSULOSIN 0.4 MG CAPSULE PO (17:14)
[2019-07-08] MEDS: ROSUVASTATIN 10 MG TABLET PO (17:14)
[2019-07-08] MEDS: glipiZIDE 5 MG TABLET PO (17:14)
[2019-07-08] MEDS: AMIODARONE 100 MG TABLET PO (17:15)
[2019-07-08] MEDS: ISOSORBIDE MONONITRATE ER 30 MG TABLET PO (17:33)
--- NOTE | 2019-07-08 20:43 | P.PN_ITS ---
Subjective Subjective Date Patient Seen: 07/08/19 Time Patient Seen: 10:20 Interval history: He is seen today to follow-up his congestive heart failure, lower extremity cellulitis, over-sedation, low back pain. His lower extremity cellulitis has improved dramatically as has his lower extremity edema and shortness of breath. He still requires an additional bit of diuresis. He needs to work with physical therapy however his prolonged hospital stay and being in the bed has caused his back pain to flare up. We are working on controlling this now, and this is been difficult given that he had an apneic event due to over sedation with pain medication they required him to go to the ICU. We have changed around his Robaxin and is now q.8 hours scheduled, his Tylenol has been changed to standing and we added gabapentin 300 mg and he still has Q 6 hour opiate pain control which does not seem to over sedate him. His pain control was much improved this morning and the patient was out of bed in his chair most of the day. He had a couple of desaturations today, but two ABGs showed stable hypercarbia and the patient's mentation had actually improved. He should be started on noninvasive ventilation this evening to help with likely obesity hypoventilation syndrome. Exam Vital Signs (past 8 hours): - 07/08/19 15:00 07/08/19 16:39 07/08/19 20:16 Temperature 97.5 F L 97.8 F Pulse Rate 70 70 Respiratory Rate 15 20 Blood Pressure 109/54 L 125/66 Pulse Oximetry 90 L 87 L 88 L Oxygen Delivery Method Nasal Cannula Oxygen Flow Rate 2 Narrative Exam Narrative: GENERAL APPEARANCE: Elderly male, chronically ill appearing, appears uncomfortable. He is obese. SKIN: Inspection of the skin reveals an erythematous area over his sacrum with blistering consistent with pressure. There does not appear to be any purulence but this area is quite tender. HEENT: The sclerae were anicteric and conjunctivae were pink and moist. Extraocular movements were intact and pupils were equal, round with normal accommodation. External inspection of the ears and nose showed no scars, lesions, or masses. Lips, teeth, and gums showed normal mucosa. The oral mucosa, hard and soft palate, tongue and posterior pharynx were unremarkable. NECK: Supple and symmetric. There was no thyroid enlargement, and no tenderness, or masses were felt. CHEST: Normal AP diameter and normal contour without any kyphoscoliosis. LUNGS: Auscultation of the lungs revealed no wheezes, rhonchi, or rales. CARDIOVASCULAR: There was a regular rate and rhythm without any murmurs, gallops, rubs. Peripheral pulses were 2+ and symmetric. ABDOMEN: Soft and nontender with normal bowel sounds. No ascites was noted. MUSCULOSKELETAL: He is tender over his lower back, there is significant muscle tightness and there was midline tenderness. Slightly improved today. EXTREMITIES: LLE erythema resolved since prior examination, as has bilateral LE edema still with L > R but it is trace today. He has chronic venous stasis changes. NEUROLOGIC: Alert and oriented. Groggy at times but improved over the course of the day. Objective Labs Result Diagrams: 07/08/19 06:11 07/08/19 06:11 Labs: Laboratory Results - last 24 hr 07/08/19 07/08/19 07/08/19 06:11 06:11 13:30 WBC 8.6 RBC 3.54 L Hgb 12.1 L Hct 36.7 L MCV 103.6 H MCH 34.0 MCHC 32.9 RDW 15.1 H Plt Count 122 L Neut % (Auto) 81.5 H Lymph % (Auto) 5.8 L Williamson % (Auto) 9.6 Eos % (Auto) 2.8 Baso % (Auto) 0.3 Neut # (Auto) 7000 Lymph # (Auto) 500 L Williamson # (Auto) 800 Eos # (Auto) 200 Baso # (Auto) 0 ABG pH 7.42 ABG pCO2 67.1 H* ABG pO2 60 L ABG HCO3 44 H ABG Total CO2 46 H ABG O2 Saturation 90 L ABG Base Excess 19.0 H FiO2 22 Sodium 137 Potassium 4.2 Chloride 91 L Carbon Dioxide 41 H* BUN 62 H Creatinine 1.40 H Estimated GFR 48.3 L BUN/Creatinine Ratio 44.3 H Glucose 121 H Calcium 9.5 Phosphorus 3.3 Magnesium 2.1 07/08/19 16:39 WBC RBC Hgb Hct MCV MCH MCHC RDW Plt Count Neut % (Auto) Lymph % (Auto) Williamson % (Auto) Eos % (Auto) Baso % (Auto) Neut # (Auto) Lymph # (Auto) Williamson # (Auto) Eos # (Auto) Baso # (Auto) ABG pH 7.41 ABG pCO2 64.8 H* ABG pO2 87 ABG HCO3 41 H ABG Total CO2 43 H ABG O2 Saturation 96 ABG Base Excess 17.0 H FiO2 28 Sodium Potassium Chloride Carbon Dioxide BUN Creatinine Estimated GFR BUN/Creatinine Ratio Glucose Calcium Phosphorus Magnesium Assessment & Plan Assessment & Plan narrative: This is an 83-year-old male patient with a history of hypertension, hyperlipidemia, insulin-dependent diabetes, CHFpEF and atrial fibrillation who was admitted for cellulitis and acute on chronic diastolic heart failure. His course was complicated by over sedation after giving pain medications for worsened low back pain which has been recent, and his back pain is now limiting his ability to work with physical therapy. 1. Bilateral Calf Ulcers/cellulitis -wound culture has grown Klebsiella oxytoca which is sensitive to ceftriaxone. Vancomycin was discontinued. He has been showing improvement with IV therapy. -continue IV ceftriaxone at this time. Can change to oral antibiotics upon discharge or can discontinue after 7 days of therapy. -he is treated with Eliquis so a DVT is unlikely 2. Congestive Heart Failure, diastolic, acute on chronic. -he still appears volume overloaded and requires diuresis at this time. Likely one more day of diuresis will suffice based on current trend. -will stop IV Lasix today as volume overload has dramatically improved and patient has a developing metabolic alkalosis which could be secondary to contraction from his diuresis. Will continue with p.o. Lasix in the morning. 3. Low back pain, acute on chronic -this is likely muscle spasms in the setting chronic back pain and multiple prior surgeries as well as a pressure ulcer over his sacrum which is likely due to his prolonged immobilization over the past two weeks since a reported fall at home. We need to get his back pain controlled to the point he would work with physical therapy, however this is proving difficult and worsens by the day as he becomes more stiff while in his hospital bed. His course was complicated by apnea following treatment for his back pain. I think the best treatment would be for physical therapy but that has been unreasonable given his complaints of pain. Lumbar radiographs were unremarkable as was a CT of his lumbar spine to assess for potential compression fractures or other etiologies. -continue Robaxin standing at 500 mg q8, tylenol standing q6 -continue oxycodone q.6 hours as needed -added gabapentin 300 mg nightly tylenol q6 standing lidocaine patch - continue attempting to try PT - frequent turning and try to get OOB to chair 4. Persistent Atrial Fibrillation, chronic, present on admission. patient is on amiodarone therapy. -Continue Eliquis and Amiodarone -INR was 1.7 5. Acute on chronic hypercarbic and Hypoxic Respiratory Failure, improved. Secondary to acute on chronic heart failure exacerbation, as well as over- sedation with medications for his back pain. There is also probable underlying obesity hypoventilation syndrome causing a chronic hypercarbic respiratory failure as noted by his elevated CO2 on ABGs. 6. Diabetes Mellitus 2, on halfway insulin -Continue Lantus and Glipizide and follow blood sugars AC and HS. 7. Hypertension, chronic -Continue Hydralazine and Isosorbide 8. Hyperlipidemia -Continue Crestor 9. Elevated Troponin / type II HI -Presumably secondary to LEANN/CKD -Repeat Troponin was down to 0.081.. -Echocardiogram reading from 07/04 showed grade 3 diastolic dysfunction 10. BPH -Continue Tamsulosin Code Status -DNR Regular floor.
[2019-07-08] MEDS: GABAPENTIN 300 MG CAPSULE PO (20:46)
[2019-07-09] VITALS (15 sets, daily range): BP systolic 115–142; BP diastolic 56–72; PULSE 62–68; RESP 17–28; TEMP 36–37; O2SAT 88–96
[2019-07-09] MEDS: ACETAMINOPHEN 325 MG TABLET 650 MG PO ×5 (00:40→23:30)
[2019-07-09] MEDS: METHOCARBAMOL 500 MG TABLET PO ×4 (00:40→23:30)
--- NOTE | 2019-07-09 02:26 | PC.NURSE ---
Addendum entered by Martha Pickett R.N. 07/09/19 06:39: Small blood clots noted in robison bag this morning. Addendum entered by Martha Pickett R.N. 07/09/19 06:22: Slept between repositioning. FLACC 0 at rest but states pain is 9/10 and hollers out with turning. Addendum entered by Martha Pickett R.N. 07/09/19 02:45: On review of chart determined dressing to mid back is actually patient's Lidocaine patch so will be removed. Addendum entered by Martha Pickett R.N. 07/09/19 02:36: late entry: noted at start of shift that order for IV Fentanyl had not been given by previous RN so discussed with LAW WRITERKathleen, to verify if was to be given IV or a Fentanyl patch. Verified IV dose x 1 but patient at time denied pain so instructed to not give at that time but may give later this shift if needed for increased pain. Original Note: Patient less alert and more drowsy tonight. Slow to respond and more confused knowing only name and birthday tonight. Breath sounds continue to be diminished; no wheezing tonight. Oxygen at 2L/min per NC with sat of 96% so oxygen now decreased to 1L/min. 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 Denies nausea. BT present and abdomen is soft but still has not had a BM since 07/01. Indwelling catheter is patent but urine is dark heber tonight. Repositioned q2h as not able to move himself. Allevyn dressing to sacral area is CDI. Now has dressing on mid back; unknown what under dressing. Skin around allevyn dressing is reddened but blanchable. Less red/macerated in abdominal folds/groin; still with dull redness extending down to upper thighs. Penis also appears swollen tonight. Legs continue to be reddened with scabbed lesions noted; no drainage from areas. 2+ edema in left LE and trace edema in right LE. At shift change and again when medicated with 0000 meds patient denied any pain. Still hollers out when repositioned but not as strongly as previous nights and doesn't seem to be as resistive. After being repositioned settles down right away and goes back to sleep. Fall risk score is high and bed alarm is activated.
[2019-07-09 06:24] LABS: Add Manual Diff / Slide Review NO; Basophils Absolute Auto 100 /uL (0-100); Basophils Percent Auto 1.1 % (0-2); Eosinophils Absolute Auto 300 /uL (0-450); Eosinophils Percent Auto 3.4 % (2-4); Hematocrit 37.8 % (41-53); Hemoglobin 12.2 g/dL (13.5-17.5); Lymphocytes Absolute Auto 600 /uL (1100-4500); Lymphocytes Percent Auto 6.8 % (25-40); Mean Corpuscular HGB Conc 32.4 % (30-36); Mean Corpuscular Hemoglobin 33.3 PG (26-34); Mean Corpuscular Volume 102.9 fL (80-100); Monocytes Absolute Auto 1000 /uL (0-900); Monocytes Percent Auto 11.4 % (3-14); Neutrophils Absolute Auto 6500 /uL (1500-7000); Neutrophils Percent Auto 77.3 % (50-75); Platelet Count 148 X10^3/uL (150-400); Red Blood Cell Count 3.67 X10^6/uL (4.5-5.9); Red Cell Distribution Width 15.2 % (11.6-14.8); White Blood Cell Count 8.4 X10^3/uL (4.5-11.0)
[2019-07-09 06:27] LABS: Hemoglobin A1C% w Est Avg Glu 6.2 % (4.0-6.0)
[2019-07-09 06:28] LABS: Blood Urea Nitrogen 75 mg/dL (9-20); Calcium 9.4 mg/dL (8.4-10.2); Chloride 94 mmol/L (98-107); Estimated Glomerular Filt Rate 44.6 mL/min (>60); Glucose 84 mg/dL (80-110); Magnesium 2.2 mg/dL (1.6-2.3); Sodium 137 mmol/L (137-145)
[2019-07-09 06:34] LABS: HEMOLYSIS 16 (0-50)
[2019-07-09 07:11] LABS: Carbon Dioxide 40 mmol/L (22-32)
--- NOTE | 2019-07-09 07:16 | PC.NURSE ---
Day Shift- Critical lab rec'd by another RN at 0712 and reported to this story writer. Critical CO2 of 40. At 0714, Dr. Mitchell aware of critical value, need bowel meds and small blood clots noted in urinary catheter, written note by night RN.
[2019-07-09] MEDS: MUPIROCIN 22 GM OINT 1 APPLIC TOP ×3 (10:15→22:24)
[2019-07-09] MEDS: CEFTRIAXONE 1 GM/50 ML FROZ.PIGGY IV (10:17)
[2019-07-09] MEDS: SODIUM CHLORIDE 0.9% FLUSH 10 ML IV ×3 (10:17→19:33)
[2019-07-09] MEDS: HYDRALAZINE 10 MG TABLET PO ×3 (10:20→20:57)
[2019-07-09] MEDS: POLYETHYLENE GLYCOL 3350 17 GM POWD.PACK PO (10:20)
[2019-07-09] MEDS: OXYCODONE IR 5 MG TABLET PO ×2 (10:21→21:53)
[2019-07-09] MEDS: DOCUSATE 100 MG CAPSULE PO ×2 (10:22→20:57)
[2019-07-09] MEDS: APIXABAN 5 MG TABLET 2.5 MG PO ×2 (10:22→20:57)
[2019-07-09] MEDS: CHOLECALCIFEROL (VITAMIN D3) 1,000 UNIT TABLET 1000 UNIT PO (10:23)
[2019-07-09] MEDS: POTASSIUM CHLORIDE 10 MEQ TAB 20 MEQ PO (10:23)
[2019-07-09] MEDS: MAGNESIUM OXIDE 400 MG TABLET PO (10:24)
[2019-07-09] MEDS: FUROSEMIDE 40 MG TABLET PO (10:24)
[2019-07-09] MEDS: INSULIN GLARGINE 100 UNIT/ML 3ML PEN 16 UNIT SUBCUT (10:29)
[2019-07-09] MEDS: LIDOCAINE PATCH 1 EACH ADH..PATCH TOP (11:09)
[2019-07-09] MEDS: BISACODYL 10 MG SUPP PR (11:09)
--- NOTE | 2019-07-09 11:45 | PT.IPTN ---
Current Diagnoses Heart failure, unspecified (07/02/19) Physical Therapy Treatment Note M2 PT-IP Current Condition Start: 07/03/19 18:36 Freq: NEEDED Status: Active Protocol: Document 07/03/19 17:40 AB (Rec: 07/03/19 18:50 AB [id number]) Physical Therapy Current Condition Current Condition Evaluation Date 07/03/19 Treatment Diagnosis BLE cellulitis; CHF; difficulty in walking Onset Date 07/02/19 Precautions Other Precautions falls M3 PT-IP Subjective Start: 07/03/19 18:36 Freq: NEEDED Status: Active Protocol: Document 07/09/19 11:45 GGD (Rec: 07/09/19 14:04 GGD [id number]) Subjective Physical Therapy Visit Type Type Treatment Note Visit Start Time 11:05 Visit Stop Time 11:43 Total Visit Minutes 38 Notes co treat with OT and RN Number of SECURITY POLICE OFFICER Visits 1 Physical Therapy Visit Comments Patient Comments Pt willing to work with therapy after encouargement from son. Therapy Pain Assessment Pain When Pain Assessed During Mobility Pain Present Pain Present Pain Reported M4 PT-IP Mobility and Gait Start: 07/03/19 18:36 Freq: NEEDED Status: Active Protocol: Document 07/09/19 11:45 GGD (Rec: 07/09/19 14:04 GGD [id number]) PT-Bed Mobility Assessment Rolling Type of Rolling Roll to Right Level of Assist 2 Person Assistance Supine to Sit Supine to Sit Total Assistance,2 Person Assistance,Head of Bed Elevated PT-Transfer Assessment Sit to and From Stand Sit to and from Stand Total Assistance Equipment Transfer Assistive Device Mechanical Lift Orthotic/Prosthetic Devices or Brace: No Transfers Transfer Destination Chair Transfer Technique Mechanical Lift Transfer Ability Level of Assist Total Assistance,2 Person Assistance Comments Mobility Comments Pt rolled to right with mod A x2 for nursing care. Pt able to sit to on EOB with CGA. He needed min A for weight shift to place over head sling. M5 PT-IP Objective Assessments Start: 07/03/19 18:36 Freq: NEEDED Status: Active Protocol: Document 07/03/19 17:40 AB (Rec: 07/03/19 18:50 AB [id number]) Orientation Orientation/Cognition Level of Alertness Alert Orientation Name Safety Awareness Decreased Safety Awareness Gross Range of Motion Lower Extremity ROM Assessment Bilaterally Impaired Impairments pt is resistant with moving BLE during PROM Strength Lower Extremity Strength Assessment Bilaterally Impaired Hip 2-/5 Knee 2-/5 M6 PT-IP Treatment Start: 07/03/19 18:36 Freq: NEEDED Status: Active Protocol: Document 07/03/19 17:40 AB (Rec: 07/03/19 18:50 AB [id number]) Physical Therapy Treatment Education Education Provided Safety Other Treatments Other Treatment Performed pt educated on importance of PT and mobility M7 PT-IP Assessment and Plan Start: 07/03/19 18:36 Freq: NEEDED Status: Active Protocol: Document 07/09/19 11:45 GGD (Rec: 07/09/19 14:04 GGD [id number]) PT Summary Assessment and Plan Summary Assessment Summary Pt is total A x 3 for bed mobility. CGA for EOB sitting balance. Pt had increase in c/ o pain with all mobility. Frequency of Treatment Frequency Of Treatment Once a Day Treatment Plan Physical Therapy Treatment Plan Bed Mobility Training,Transfer Training,Gait Training, Therapeutic Exercise,Balance Retraining,Discharge Planning, Neuromuscular Re-ed, Coordination Retraining,Manual Therapy Recommendations To Nursing Amount of Assist Needed 3 or More Person Assist,Total Assistance,Mechanical Lift Discharge Recommendations PT Discharge Recommendations SNF Rehab
--- NOTE | 2019-07-09 11:47 | PC.NURSE ---
Addendum entered by Yolanda Combs R.N. 07/09/19 15:10: Dr. Mitchell aware that pt's son Chip present and would like update. Chip aware that Dr. Mitchell with try to come in and update him prior to him leaving for his flight back to [facility]. Chip agreeable to a phone call update. Addendum entered by Yolanda Combs R.N. 07/09/19 13:48: At 1250, pt to BSC via ceiling lift and 2PA, pt needed to be placed hovering over SBC with sling elevated and knees bent in order to have a moderate formed brown BM. Original Note: Day Shift- Pt ate 100% of breakfast with BOWLING BALL GRADER AND MARKER 1:1 feed. PRN pain meds and scheduled meds given at 1015 prior to OOB movement, plan with PT/OT at 1100. In room room [id number]. Pt with 3PA, 2PA to torso, sit upright in bed and dangle legs. Sat for approx 5 mins, pt able to support torso upright, did lean back, used ceiling lift handle for pt to hold onto while sitting. Ceiling lift with sling to recliner chair. Pt's son arrived around 1050, states being very upset to see his father in the bed and not the recliner. His impression was for the pt to spend the night in the recliner as discussed yesterday. Pt does sleep in a recliner at night at home. Chip requesting to speak with physician. Coccyx allevyn dressing changed, coccyx less red than from 07/06, redness is blanchable, there are 2 intact blisters and 2 non-intact blisters, skin very fragile. There is 2 small open areas, appears to be skin tear, fragile skin to left of coccyx to upper left buttock. Area cleansed with NS and small allevyn dressing applied. Coccyx area cleansed with NS, pat dry and allevyn dressing applied. approx 4 small intact blisters noted to left lower back near midline. Barrier cream applied to magalie-rectal area and lower back, back washed. Pt now in recliner chair starting at 1135. Chair alarm on. O2 sat 90% on 0.5L NC placed in mouth. LLE edema pitting 2+ to calf. redness to mid calf area and above ankle, redness more vibrant noted around left outer lower leg wound that has scant purulent drainage. RLE edema trace, dark redness to del angel with dry wound to mid del angel and right lower inner leg has small wound non draining.
--- NOTE | 2019-07-09 12:41 | OT.IP.TRT ---
Current Diagnoses Heart failure, unspecified (07/02/19) Occupational Therapy Treatment Note M2 OT-IP Current Condition Start: 07/05/19 14:04 Freq: Status: Active Protocol: Document 07/05/19 14:04 CGR (Rec: 07/05/19 14:31 CGR [id number]) Occupational Therapy Current Condition Current Condition Evaluation Date 07/05/19 Treatment Diagnosis BLE cellulitis, hypoxia, recent fall, chf exacerbation M3 OT- IP Subjective and Pain Start: 07/05/19 14:04 Freq: Status: Active Protocol: Document 07/09/19 12:31 CCC (Rec: 07/09/19 12:41 [facility] [id number]) OT- Subjective Occupational Therapy Visit Type Type Treatment Note Visit Start Time 11:02 Visit Stop Time 11:43 Total Visit Minutes 41 Occupational Therapy Visit Comments Patient Comments Pt after encouragement from son and therapists and nurse begrudgingly agreed to get up. Patient/Caregiver Goals Pt wanting to go home. OT Pain Assessment Pain When Pain Assessed During Mobility Pain Present Pain Present Pain Reported Location Lower Back Pain Behaviors Calling Out,Facial Grimacing, Guarding,Moaning,Wincing M7 OT- IP Mobility and Balance Start: 07/05/19 14:04 Freq: Status: Active Protocol: Document 07/09/19 12:31 [facility] (Rec: 07/09/19 12:41 [facility] [id number]) OT- Bed Mobility Assessment Rolling Type of Rolling Roll to Right Level of Assistance Maximum Assistance,2 Person Assistance Supine to Sit Supine to Sit Assist Total Assistance,2 Person Assistance,Head of Bed Elevated Scooting Scooting to Edge of Bed Maximum Assistance,2 Person Assistance OT-Transfer Assessment Comments Mobility Comments Total assist x2 with HOB up to get his trunk upright and One person total assist to help move his legs to the edge of the bed. OT- Balance Assessment Comments Other Balance Tests/Deviations/Treatment Pt able to sit to the edge of : bed after initially assist to sit to midline with BRIAN and then SBA. Having to hold and assist pt to lean to side to side so SOCIAL SECURITY BENEFITS INTERVIEWER able to place sling underneath his legs. M8 OT- IP Objective Assessments Start: 07/05/19 14:04 Freq: Status: Active Protocol: Document 07/05/19 14:04 CGR (Rec: 07/05/19 14:31 CGR [id number]) OT Gross Range of Motion Upper Extremity Range of Motion ROM Impairments Pt performed finger to nose when trying to place his o2 but appears clumsy. Noted ROM for hand to mouth and hand to nose to BUE but pt refused further ROM. M9 OT- IP Assessment and Plan Start: 07/05/19 14:04 Freq: Status: Active Protocol: Document 07/09/19 12:31 [facility] (Rec: 07/09/19 12:41 [facility] [id number]) OT Summary Assessment and Plan Potential Rehabilitation Potential Fair Analytic Complexity at Evaluation Moderate Summary OT Impairments Pain,Range of Motion,Strength, Balance,Coordination, Functional Cognition, Functional Mobility,Self- Feeding,Grooming,Dressing, Toileting,Bathing,Toilet Transfers,Shower Transfers Progress Towards Goals Slow Progress due to Pain,Slow Progress due to Medical Issues,Slow Progress due to Activity Tolerance,Slow Progress due to Cognition Assessment Summary Pt able to tolerate sitting at edge of bed today after total A x3 to get pt from HOB up in bed to edge of bed. Pt needing extensive assist for all needs and will benefit from skilled rehab to continue to work on increasing independence with Adl and functional mobility needs. Goals Grooming Goal Standby Assistance Dressing Goal Moderate Assistance Toileting Goal Moderate Assistance Bathing Goal Moderate Assistance Toilet Transfer Goal Moderate Assistance Shower Transfer Goal Moderate Assistance Days to Meet Goals 14 Frequency of Treatment Frequency Of Treatment Once a Day Treatment Plan OT Treatment Plan ADL Training,Functional Cognition Training,Functional Mobility,Patient/Family Education,Discharge Planning Other Treatment Recommendations and Next Pt able to complete 50% of the Treatment Focus meal on his own with adaptive utensils. Discharge Recommendations OT Discharge Recommendations SNF Rehab,[facility]
--- NOTE | 2019-07-09 15:03 | DIET.PN ---
Dietary Progress Note Assessment: 83y M admitted for CHF exacerbation c lower extremity cellulitis triggering RD consult for being inpatient +5d. Pt had POs ~25% from 07/02-07/08 but nearly 100% for past two days. Pt states he wasn't hungry, but now is. Pt received 1:1 feeding assistance today, unsure if this occurred prior. Pt has some skin breakdown on coccyx triggering start of ONS Brian bid on 07/07/19 to help c wound healing. Pt [place] [address] [place] , son was present during consult and pt was sitting in chair. Pt's in charge of breakfast and dinner, he takes care of lunch and snacks. Usual intake: B: wasa cracker c tomato, sliced turkey, chapin side up egg, and cold apple L: [employer] bread slice c liverwurst or bologna D: can of soup Sn: fruit- usually berries Pt's home diet contains appropriate whole grain choices, however liverwurst/bologna/canned soup all high sodium likely exacerbating CHF. HT: 176.5cm WT: 122kg BMI: 39 Labs:eGFR 44.6 L, A1c 6.2, BUN 75 H, Cr 1.5 H MNA:12 normal Kwadwo:16 Nutrition Diagnosis: Excessive intake of nutrients (sodium) r/t undesirable food choices aeb pt food recall of regularly consuming high sodium meat products and canned soups and hospitalized for CHF exacerbation. Interventions: Educated pt and son on association between CHF and sodium in diet. Encouraged pt to choose low sodium soups and choose lower sodium PRO toppings, saving the liverwurst for occasional eating. Diet Order:CCD 3 EER: 2200kcal, 110g PRO (0.9g/kg per eGFR, wounds), 3.6L fluids Monitoring/Evaluations: continue ONS Brian to support wound healing
[2019-07-09] MEDS: ROSUVASTATIN 10 MG TABLET PO (17:34)
[2019-07-09] MEDS: TAMSULOSIN 0.4 MG CAPSULE PO (17:34)
[2019-07-09] MEDS: AMIODARONE 100 MG TABLET PO (17:34)
[2019-07-09] MEDS: glipiZIDE 5 MG TABLET PO (17:34)
[2019-07-09] MEDS: ISOSORBIDE MONONITRATE ER 30 MG TABLET PO (17:34)
--- NOTE | 2019-07-09 18:23 | PC.NURSE ---
Addendum entered by Laurel Kruger R.N. 07/09/19 23:31: Addendum: R.T. has increased pt's 02 to 3L per nc. Addendum entered by Laurel Kruger R.N. 07/09/19 22:54: This technical publications writer approached pt about repositioning in chair with staff assistance and/or returning to bed to allow skin to breathe and relieve pressure to bottom. Pt adamantly refuses with a loud, Hell no. Even discussed premedicating pt and then transferring/repositioning and pt continues to refuse. Pt's son, Chip, phones this technical publications writer and states pt phoned spouse, spouse phoned children and reports pt and family are upset at the mention of hospice as per pt phone discussion following rounding MD, Dr. Mitchell, on this shift. This technical publications writer allowed Chip to verbalize and Chip states pt does not want this nor does family feel this is appropriate. Informed Chip decisions have not been made but physician has had conversation with pt regarding pt's wishes/desires and pt's expression of feelings. Chip states will follow up with hospitalist via telephone tomorrow 07/10. Pt was medicated for back pain 04/24 and lidocaine patch removed to lower back with staff members x 2 to move pt forward in chair just enough to remove. Bactroban ointment to left lateral leg wound as per emar. Addendum entered by Laurel Kruger R.N. 07/09/19 19:40: Per Dr. Mitchell's orders, R.T. in to see pt re use of bipap/cpap overnight. Pt declines. With sleep in chair oxygen level to 84%. on 1L per nc with cannula in pt's mouth d/t mouth breathing. R.T.Nehemias turns pt up to 4L per nc. Lasix iv infusing as ordered. Pt reports legs feel stuck. Pt is unable to move these independently. LLE elevated on single pillow while in chair after discussion with pt. Original Note: Pt up in recliner @ beginning of shift. [address] per nc with continuous oxygen monitor sats read 93%. Pt remains with head flexed towards chest, but is easily rousable and conversant. Dr. Mitchell in to see patient. Per dayshift RN request, this technical publications writer requested MD visualize pt's left lateral leg wound. This was done. Dr. Mitchell discussed with pt pt's desire and family stated desire for pt to remain in recliner and sleep in recliner. MD cautioned pt about skin breakdown with lack of change of positioning. Pt reports back pain is prohibitive to sleeping in bed. This technical publications writer asked pt again after MD departed room and pt states desires to remain in chair. Pt rates lower back pain 8/10. Given meds as per emar. Able to feed self with self up and minimal assistance. BL LE's elevated as much as foot of chair will allow. Pennington to gravity and draining dark yellow urine. Pedal pulses BL present with doppler.
--- NOTE | 2019-07-09 18:24 | P.PN_ITS ---
Subjective Subjective Date Patient Seen: 07/09/19 Interval history: Sami Mcneal is an 83-year-old male patient with a past medical history significant for hypertension, hyperlipidemia, diabetes mellitus type 2, insulin using, CHFpEF and persistent atrial fibrillation who was admitted for cellulitis and acute on chronic diastolic heart failure. His course was complicated by over sedation after giving pain medications for worsened low back pain which has been recent, and his back pain is now limiting his ability to work with physical therapy. The patient is resting in bedside chair and appears comfortable. He endorses significant back pain which limits him to get out of chair. The patient was placed in bed last night for which the family was displeased. The patient rep orts significant low back pain in bed. The patient has skin breakdown of his sacrum/gluteus which was unable to be visualized as unable to get him out of bedside chair. He also endorses mild pain with palpation of legs bilaterally. He has no other complaints and denies shortness of breath, chest pain, abdominal pain, nausea, vomiting, fever, chills, dysuria, diarrhea or constipation. He is voiding via Pennington catheter and eliminating without difficulty. He is predominantly bed bound. Exam Vital Signs (past 8 hours): - 07/09/19 10:40 07/09/19 10:56 07/09/19 11:09 Temperature Pulse Rate Respiratory Rate Blood Pressure Pulse Oximetry 91 90 L 92 07/09/19 14:27 07/09/19 14:28 07/09/19 16:53 Temperature 98.0 F Pulse Rate 66 66 68 Respiratory Rate 28 H 17 Blood Pressure 136/62 136/62 142/66 H Pulse Oximetry 88 L 91 Oxygen Delivery Method Nasal Cannula Oxygen Flow Rate 0.5 Narrative Exam Narrative: General: Elderly male lying in bedside chair and in no acute distress, morbidly obese, lethargic and somnolent but otherwise appropriately interactive. HEENT: Normocephalic, atraumatic. External ears without defect. Pupils equal, round, and reactive to light. Anicteric sclerae, moist conjunctivae, and no lid lag. Neck: Supple with full range of motion. No jugular venous distension. No lymphadenopathy or thyromegaly. Cardiovascular: Heart sounds distant but appears to be irregularly irregular without murmurs, rubs, or gallops appreciated Pulmonary: Clear to auscultation bilaterally without crackles, wheezes, or rhonchi. Normal respiratory effort with no use of accessory muscles. Abdomen: Soft, obese, bowel sounds present, nontender, nondistended. No hepatosplenomegaly or masses appreciated. Extremities: No clubbing or cyanosis. Moderate pitting edema to pretibial area bilaterally L>R. Chronic bilateral venous stasis dermatitis. Ulceration on left lateral leg does not appear to be infected. Skin: Normal temperature, turgor, and texture; no rash, ulcers, or subcutaneous nodules appreciated. Neurological: Cranial nerves grossly intact. Psychiatric: Depressed mood, withdrawn, and normal affect. Appears to be alert and oriented to person, place, and time. Objective Labs Result Diagrams: 07/09/19 05:55 07/09/19 05:55 Labs: Laboratory Results - last 24 hr 07/09/19 07/09/19 07/09/19 05:55 05:55 05:55 WBC 8.4 RBC 3.67 L Hgb 12.2 L Hct 37.8 L MCV 102.9 H MCH 33.3 MCHC 32.4 RDW 15.2 H Plt Count 148 L Neut % (Auto) 77.3 H Lymph % (Auto) 6.8 L Bremer % (Auto) 11.4 Eos % (Auto) 3.4 Baso % (Auto) 1.1 Neut # (Auto) 6500 Lymph # (Auto) 600 L Bremer # (Auto) 1000 H Eos # (Auto) 300 Baso # (Auto) 100 Sodium 137 Potassium 4.0 Chloride 94 L Carbon Dioxide 40 H* BUN 75 H Creatinine 1.50 H Estimated GFR 44.6 L BUN/Creatinine Ratio 50.0 H Glucose 84 Hemoglobin A1c 6.2 H Calcium 9.4 Magnesium 2.2 Assessment & Plan Assessment & Plan narrative: Sami Mcneal is an 83-year-old male patient with a past medical history significant for hypertension, hyperlipidemia, diabetes mellitus type 2, insulin using, CHFpEF and persistent atrial fibrillation who was admitted for cellulitis and acute on chronic diastolic heart failure. His course was complicated by over sedation after giving pain medications for worsened low back pain which has been recent, and his back pain is now limiting his ability to work with physical therapy. 1. Acute on chronic low back pain with generalized weakness, present on admi ssion. Active. -This is likely muscle spasms in the setting chronic back pain and multiple prior surgeries as well as a pressure ulcer over his sacrum which is likely due to his prolonged immobilization over the past two weeks since a reported fall at home. We need to get his back pain controlled to the point he would work with physical therapy, however this is proving difficult and worsens by the day as he becomes more stiff while in his hospital chair and refuses to move. His course was complicated by apnea following treatment for his back pain. I think the best treatment would be for physical therapy but that has been unreasonable given his complaints of pain. Lumbar radiographs were unremarkable as was a CT of his lumbar spine to assess for potential compression fractures or other etiologies. -Continue pain control with methocarbamol 500 mg every 8 hours, tylenol 650 mg every 6 hours, lidocaine patch daily, oxycodone every 6 hours as needed and gabapentin 300 mg daily at bedtime. -Plan to start prednisone 40 mg daily for intractable back pain starting tomorrow morning. -Continue physical and occupational therapy as pain allows. -Continue to turn frequently and get out of chair to bed if patient and family will allow. 2. Acute on chronic diastolic congestive heart failure with pulmonary hypertension, present on admission. Active. -Patient presented with worsening shortness of breath, peripheral edema and hypoxemia. -Echocardiogram demonstrated: Left ventricular wall thickness is moderately increased. Diastolic parameters suggest a restrictive filling pattern consis tent with probable significantly elevated filling pressures (grade 3 diastolic dysfunction). Flattened septum is consistent with RV volume overload. RV appears mild-moderately enlarged but the image quality is suboptimal for accurate assessment. Right ventricular systolic function is at the lower limits of normal. The RVSP is estimated to be at least 76 mm Hg based on estimated right atrial pressure of 15 mm Hg. There is moderate to severe mitral annular calcification. 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 -Continue to monitor strict I&O and daily weights. Net - 5L. -Continue aggressive diuresis and increased furosemide to 40 mg IV twice daily. -Continue to monitor electrolytes closely and replete as necessary. Goal K > 4.0 and Mg > 2.0. 3. Acute on chronic hypercarbic and hypoxemic respiratory failure, present on admission. Improving. -Multifactorial and secondary to acute on chronic heart failure exacerbation, over-sedation with medications for his back pain, and probable underlying obesity hypoventilation syndrome causing a chronic hypercarbic respiratory failure as noted by his elevated CO2 on ABGs. -Continue supplemental oxygen as needed to keep oxygen saturation 88-92%. -Ordered BIMAL protocol for BiPAP to start tonight if patient will tolerate to improve hypercarbia and overall energy level. 4. Bilateral calf venous stasis ulcers with cellulitis, present on admission. Resolving. -Wound culture has grown Klebsiella oxytoca which is sensitive to ceftriaxone 1 g IV daily. Vancomycin was discontinued. His cellulitis appears to be resolving with L>R. -He is treated with Eliquis so a DVT is unlikely. 5. Persistent atrial fibrillation, chronic, present on admission. Stable. -Continue Eliquis 2.5 mg twice daily and amiodarone 100 mg daily. 6. Diabetes mellitus type II, insulin-using, chronic, present on admission. Stable. -Hemoglobin A1C 6.2% in 11/2018. -Continue Lantus 16 units daily. Discontinued glipizide -Continue ACHS blood glucose checks. 7. Chronic kidney disease stage III, present on admission. Stable. -Unclear baseline creatinine. Initial creatinine 2.10. Now trended down to 1.4 with diuresis and improved perfusion. -Avoid nephrotoxic agents and optimize renal perfusion. -Continue to monitor renal function daily. 8. Hypertension, chronic, present on admission. Stable. -Continue hydralazine 10 mg three times daily and isosorbide mononitrate 30 mg daily. 9. Hyperlipidemia, chronic, present on admission. Stable. -Continue rosuvastatin 10 mg daily at bedtime. 10. Acute demand ischemia, present on admission. Stable. -Secondary to hypoxemia and decreased perfusion from CHF exacerbation. -EKG demonstrated LBBB. No complaints of chest pain. -Echocardiogram reading from 07/04/19 demonstrated grade 3 diastolic dysfunction. -Initial troponin 0.114 and repeat trended down to 0.081. No longer trending. 11. BPH, chronic, present on admission. Stable. -Continue tamsulosin 0.4 mg daily at bedtime. Code Status: DNR Disposition: Patient remains inpatient and disposition is unclear as patient is unwilling to move out of chair due to significant low back pain and generalized weakness.
[2019-07-09] MEDS: FUROSEMIDE 40 MG/4 ML VIAL IV (19:32)
[2019-07-09] MEDS: GABAPENTIN 300 MG CAPSULE PO (20:56)
[2019-07-10] VITALS (11 sets, daily range): BP systolic 99–140; BP diastolic 44–72; PULSE 56–68; RESP 16–20; TEMP 35.8–36.8; O2SAT 92–98
--- NOTE | 2019-07-10 03:27 | PC.NURSE ---
Addendum entered by Farrah Hsu R.N. 07/10/19 03:32: After cleaning and applying a new Allevyn dressing to the patient's buttocks we used the mechanical lift to put him back into the chair. Original Note: The patient stated that he would like to relieve some pressure on the left side of his body. The HUNTER SKIN DIVER, Elvia and I used the mechanical lift to try and reposition him, and noticed the patient had a loose bowel movement. The patient was put into the bed so we could clean and redress the wound/pressure injury on his buttocks.
[2019-07-10] MEDS: ACETAMINOPHEN 325 MG TABLET 650 MG PO ×4 (05:43→23:37)
[2019-07-10 06:59] LABS: Add Manual Diff / Slide Review NO; Basophils Absolute Auto 100 /uL (0-100); Basophils Percent Auto 0.9 % (0-2); Eosinophils Absolute Auto 300 /uL (0-450); Eosinophils Percent Auto 3.6 % (2-4); Hematocrit 38.1 % (41-53); Hemoglobin 12.5 g/dL (13.5-17.5); Lymphocytes Absolute Auto 700 /uL (1100-4500); Lymphocytes Percent Auto 7.4 % (25-40); Mean Corpuscular HGB Conc 32.8 % (30-36); Mean Corpuscular Hemoglobin 33.8 PG (26-34); Mean Corpuscular Volume 103.1 fL (80-100); Monocytes Absolute Auto 1000 /uL (0-900); Monocytes Percent Auto 11.4 % (3-14); Neutrophils Absolute Auto 7100 /uL (1500-7000); Neutrophils Percent Auto 76.7 % (50-75); Platelet Count 147 X10^3/uL (150-400); Red Blood Cell Count 3.69 X10^6/uL (4.5-5.9); Red Cell Distribution Width 14.9 % (11.6-14.8); White Blood Cell Count 9.2 X10^3/uL (4.5-11.0)
[2019-07-10 07:11] LABS: Alanine Aminotransferase 71 IU/L (21-72); Albumin 2.9 g/dL (3.5-5.0); Albumin Globulin Ratio 0.9 (1.0-2.8); Alkaline Phosphatase 106 U/L (38-126); Aspartate Aminotransferase 63 IU/L (17-59); BUN Creatinine Ratio 51.3 (6-22); Bilirubin Total 0.6 mg/dL (0.2-1.3); Blood Urea Nitrogen 82 mg/dL (9-20); Calcium 9.4 mg/dL (8.4-10.2); Chloride 93 mmol/L (98-107); Estimated Glomerular Filt Rate 41.4 mL/min (>60); Globulin 3.1 g/dL (1.7-4.1); Glucose 107 mg/dL (80-110); HEMOLYSIS < 15 (0-50); Sodium 140 mmol/L (137-145)
[2019-07-10 07:20] LABS: Carbon Dioxide 45 mmol/L (22-32)
[2019-07-10 07:45] LABS: Procalcitonin 0.09 ng/mL (<0.5)
[2019-07-10] MEDS: APIXABAN 5 MG TABLET 2.5 MG PO ×2 (09:08→20:30)
[2019-07-10] MEDS: DOCUSATE 100 MG CAPSULE PO ×2 (09:08→20:23)
[2019-07-10] MEDS: METHOCARBAMOL 500 MG TABLET PO ×3 (09:08→23:37)
[2019-07-10] MEDS: POTASSIUM CHLORIDE 10 MEQ TAB 20 MEQ PO (09:08)
[2019-07-10] MEDS: CHOLECALCIFEROL (VITAMIN D3) 1,000 UNIT TABLET 1000 UNIT PO (09:08)
[2019-07-10] MEDS: predniSONE 20 MG TABLET 40 MG PO (09:09)
[2019-07-10] MEDS: MAGNESIUM OXIDE 400 MG TABLET PO (09:09)
[2019-07-10] MEDS: HYDRALAZINE 10 MG TABLET PO ×3 (09:10→20:24)
[2019-07-10] MEDS: HYDROCORTISONE 2.5% CREAM 30 GM 1 APPLIC TOP (09:11)
[2019-07-10] MEDS: MUPIROCIN 22 GM OINT 1 APPLIC TOP (09:12)
[2019-07-10] MEDS: SODIUM CHLORIDE 0.9% FLUSH 10 ML IV ×2 (09:12→20:25)
[2019-07-10] MEDS: LIDOCAINE PATCH 1 EACH ADH..PATCH TOP (09:12)
[2019-07-10] MEDS: INSULIN GLARGINE 100 UNIT/ML 3ML PEN 16 UNIT SUBCUT (09:14)
[2019-07-10] MEDS: FUROSEMIDE 40 MG/4 ML VIAL IV ×2 (09:17→16:58)
[2019-07-10] MEDS: OXYCODONE IR 5 MG TABLET PO ×2 (12:22→15:53)
[2019-07-10] MEDS: CEFTRIAXONE 1 GM/50 ML FROZ.PIGGY IV (12:23)
--- NOTE | 2019-07-10 13:37 | OT.IP.TRT ---
Current Diagnoses Heart failure, unspecified (07/02/19) Occupational Therapy Treatment Note M2 OT-IP Current Condition Start: 07/05/19 14:04 Freq: Status: Active Protocol: Document 07/05/19 14:04 CGR (Rec: 07/05/19 14:31 CGR [id number]) Occupational Therapy Current Condition Current Condition Evaluation Date 07/05/19 Treatment Diagnosis BLE cellulitis, hypoxia, recent fall, chf exacerbation M3 OT- IP Subjective and Pain Start: 07/05/19 14:04 Freq: Status: Active Protocol: Document 07/10/19 15:10 [facility] (Rec: 07/10/19 15:23 [facility] [id number]) OT- Subjective Occupational Therapy Visit Type Type Treatment Note Visit Start Time 13:37 Visit Stop Time 14:02 Total Visit Minutes 35 Occupational Therapy Visit Comments Patient Comments Pt not wanting to get out of bed however after physician talked to pt states would try. physician present to see pt when standing and was determined that most of pt's pain coming from his coccyx area. Patient/Caregiver Goals Pt wanting to home. OT Pain Assessment Pain When Pain Assessed During Mobility Pain Present Pain Present Pain Reported Location Lower Back Pain Behaviors Calling Out,Facial Grimacing, Guarding,Moaning,Wincing M6 OT- IP Functional Cognition Start: 07/05/19 14:04 Freq: Status: Active Protocol: Document 07/10/19 15:10 [facility] (Rec: 07/10/19 15:23 [facility] [id number]) Cognitive Factors Limiting Selfcare Function Cognitive Ability Level of Alertness Alert Patient Orientation Name,Situation Attention Span Ability Capable of Focused Attention, Unable to Sustain Attention Ability to Follow Commands Able to Follow One Step Commands Cognitive Comments Cognitive Assessment Comments Pt able to follow commands but needing step by step instructions and tactile cues when trying to come to stand to FWW. M7 OT- IP Mobility and Balance Start: 07/05/19 14:04 Freq: Status: Active Protocol: Document 07/10/19 15:10 [facility] (Rec: 07/10/19 15:23 [facility] [id number]) OT- Bed Mobility Assessment Sit to Supine Sit to Supine Assist Total Assistance,2 Person Assistance OT-Transfer Assessment Sit to and From Stand Sit to and from Stand Total Assistance Transfers Transfer Ability Total Assistance,2 Person Assistance Technique Transfer Destination Bed,Chair Transfer Technique Mechanical Lift Devices Transfer Assistive Devices Gait Belt,Mechanical Lift Comments Mobility Comments Max A x 2 and pt trying to assist with hands to scoot himself forwards in the recliner. Total x3 to stand from the recliner. Pt's posture flexed and hand holding to the front of the walker. Pt able to get weight through his legs but needing total assist x 3 to stand. Transfer back to bed power stander. Pt complaining of lots of pain and having to go slowly and raising pt up in increments. Once up on his feet appeared to have less pain until sitting back down. OT- Balance Assessment Standing Balance and Reactions Static Standing Balance Ability Poor Dynamic Standing Balance Ability Poor OT-Muscle Tone Assessment Muscle Tone WNL Yes OT Sensation Assessment Comments Summary Comments Pt is hyper sensitive to touch and movement with increased pain. M9 OT- IP Assessment and Plan Start: 07/05/19 14:04 Freq: Status: Active Protocol: Document 07/10/19 15:10 [facility] (Rec: 07/10/19 15:23 [facility] [id number]) OT Summary Assessment and Plan Potential Rehabilitation Potential Fair Analytic Complexity at Evaluation Moderate Summary Progress Towards Goals Slow Progress due to Pain,Slow Progress due to Medical Issues,Slow Progress due to Activity Tolerance,Slow Progress due to Cognition Assessment Summary Pt able to tolerate standing, however with flexed trunk and unable to stand upright with Total A x3. Pt when medically stable will benefit from skilled rehab. Pt still requires lots of encouragement and extensive assist for all ADl needs. Goals Grooming Goal Standby Assistance Dressing Goal Moderate Assistance Toileting Goal Moderate Assistance Bathing Goal Moderate Assistance Toilet Transfer Goal Moderate Assistance Shower Transfer Goal Moderate Assistance Days to Meet Goals 13 Frequency of Treatment Frequency Of Treatment Once a Day Treatment Plan OT Treatment Plan ADL Training,Functional Cognition Training,Functional Mobility,Patient/Family Education,Discharge Planning Other Treatment Recommendations and Next Pt able to complete 50% of the Treatment Focus meal on his own with adaptive utensils. Discharge Recommendations OT Discharge Recommendations SNF Rehab,[facility]
--- NOTE | 2019-07-10 14:00 | PT.IPTN ---
Current Diagnoses Heart failure, unspecified (07/02/19) Physical Therapy Treatment Note M2 PT-IP Current Condition Start: 07/03/19 18:36 Freq: NEEDED Status: Active Protocol: Document 07/03/19 17:40 AB (Rec: 07/03/19 18:50 AB [id number]) Physical Therapy Current Condition Current Condition Evaluation Date 07/03/19 Treatment Diagnosis BLE cellulitis; CHF; difficulty in walking Onset Date 07/02/19 Precautions Other Precautions falls M3 PT-IP Subjective Start: 07/03/19 18:36 Freq: NEEDED Status: Active Protocol: Document 07/10/19 14:05 GGD (Rec: 07/10/19 16:26 GGD [id number]) Subjective Physical Therapy Visit Type Type Treatment Note Visit Start Time 13:37 Visit Stop Time 14:02 Total Visit Minutes 35 Notes co-treat with OT, PT, RN and MD in room. Number of ELECTRICAL PROSPECTING OPERATOR Visits 1 Physical Therapy Visit Comments Patient Comments Pt states he would try and do what he can. Therapy Pain Assessment Pain When Pain Assessed During Mobility Pain Present Pain Present Pain Reported M4 PT-IP Mobility and Gait Start: 07/03/19 18:36 Freq: NEEDED Status: Active Protocol: Document 07/10/19 14:05 GGD (Rec: 07/10/19 16:26 GGD [id number]) PT-Bed Mobility Assessment Sit to Supine Sit to Supine Total Assistance,2 Person Assistance Scooting Scooting to Edge of Bed Dependent Scooting Up and Down in Bed Dependent PT-Transfer Assessment Sit to and From Stand Sit to and from Stand Total Assistance,2 Person Assistance,Use of Upper Extremities Equipment Transfer Assistive Device Front Wheeled Walker, Mechanical Lift Orthotic/Prosthetic Devices or Brace: No Transfers Transfer Destination Bed Transfer Technique Mechanical Lift Transfer Ability Level of Assist Maximum Assistance,Total Assistance,2 Person Assistance ,Use of Upper Extremities Comments Mobility Comments Pt sit to stand from chair with FWW with max A x 3. Pt stood for < 1 min with mod A x 3. Pt then transfer to bed with sit to stand lift. He had increase in pain with transition from sit to stand with lift. M5 PT-IP Objective Assessments Start: 07/03/19 18:36 Freq: NEEDED Status: Active Protocol: Document 07/03/19 17:40 AB (Rec: 07/03/19 18:50 AB [id number]) Orientation Orientation/Cognition Level of Alertness Alert Orientation Name Safety Awareness Decreased Safety Awareness Gross Range of Motion Lower Extremity ROM Assessment Bilaterally Impaired Impairments pt is resistant with moving BLE during PROM Strength Lower Extremity Strength Assessment Bilaterally Impaired Hip 2-/5 Knee 2-/5 M6 PT-IP Treatment Start: 07/03/19 18:36 Freq: NEEDED Status: Active Protocol: Document 07/10/19 14:05 GGD (Rec: 07/10/19 16:26 GGD [id number]) Physical Therapy Treatment Exercises Exercises Seated Knee Flexion/Extension M7 PT-IP Assessment and Plan Start: 07/03/19 18:36 Freq: NEEDED Status: Active Protocol: Document 07/10/19 14:05 GGD (Rec: 07/10/19 16:26 GGD [id number]) PT Summary Assessment and Plan Summary Assessment Summary Pt needed max a x3 for sit to stand from chair. He had flexion at trunk in standing and unable to come upright. Pt had improved posture in sit to stand lift, but decrease tolerance during the transition to standing from sitting. Pt will need SNF rehab to improve mobility. Frequency of Treatment Frequency Of Treatment Once a Day Treatment Plan Physical Therapy Treatment Plan Bed Mobility Training,Transfer Training,Gait Training, Therapeutic Exercise,Balance Retraining,Discharge Planning, Neuromuscular Re-ed, Coordination Retraining,Manual Therapy Recommendations To Nursing Amount of Assist Needed 3 or More Person Assist,Total Assistance,Mechanical Lift Discharge Recommendations PT Discharge Recommendations SNF Rehab
--- NOTE | 2019-07-10 14:37 | PM.PN.1 ---
Subjective Subjective Date Patient Seen: 07/10/19 Interval history: Sami Mcneal is an 83-year-old male patient with a past medical history significant for hypertension, hyperlipidemia, diabetes mellitus type 2, insulin using, CHFpEF and persistent atrial fibrillation who was admitted for cellulitis and acute on chronic diastolic heart failure. His course was complicated by over sedation after giving pain medications for worsened low back pain which has been recent, and his back pain is now limiting his ability to work with physical therapy. The patient continues to have limited mobility which was initially thought to be due to low back pain but is actually due to skin breakdown of his buttocks which he pointed to today upon standing with physical therapy. The patient was reluctant but willing to be transferred from chair to bed as we are able to offload his buttocks more efficiently. The patient is reluctant to work with physical therapy and has refused continuously but with significant encouragement has worked with them the last 2 days. Again discussed with the patient the lack of mobility and the increase in overall discomfort in his low back/ buttocks due to pressure ulcerations. Overnight, the patient voiced his discontent to his family and nursing staff regarding our conversation about his goal for comfort and the mention of the hospice team for symptom management. The patient reports today that he wishes he ?could end it all due to discomfort.? Again visited the conversation regarding comfort care. The patient has significant hypercarbia due to BIMAL, OHS, and pulmonary hypertension for which we continue to encourage use of BiPAP at night while sleeping but the patient adamantly refuses. Discussed use of BiPAP and ability to more aggressively treat the patient's pain if he uses BiPAP but patient continues to decline this therapy. The patient while able to feed himself refuses to do so and has required 1:1 feeding. He has no other complaints and denies shortness of breath, chest pain, abdominal pain, nausea, vomiting, fever, chills, dysuria, diarrhea or constipation. He is voiding via [place] catheter and eliminating without difficulty. He is predominantly bed bound. Discussed patient's care in detail with his son Chip Mcneal. The patient's son reports that he was trying to contact me yesterday but he was unable to do so before he had to leave the hospital early yesterday morning. The patient's son reports his dissatisfaction with the communication with the physicians in the hospital. He was grateful to learn the full details of the patient's care and understands the difficulty in the patient's overall care and mobility due to the lack of patient's willingness to participate in overall care. The patient's son's questions were all answered. He again discussed possibility of transfer for higher level of care which was attempted by the previous physician and declined by the [facility] as there is not anything that they can provide that we cannot. He also inquired regarding MRI which the patient has persistently refused and informed him that it is unlikely to reveal any other significant information that was not provided by CT lumbar spine. Exam Vital Signs (past 8 hours): - 07/10/19 08:00 07/10/19 10:07 07/10/19 11:37 Temperature 96.4 F L Pulse Rate 56 L Respiratory Rate 16 Blood Pressure 102/44 L Pulse Oximetry 94 92 92 07/10/19 12:00 Temperature 97.3 F L Pulse Rate 64 Respiratory Rate 18 Blood Pressure 99/48 L Pulse Oximetry 94 Oxygen Delivery Method Nasal Cannula Oxygen Flow Rate 1 Narrative Exam Narrative: General: Elderly male lying in bed chair and in no acute distress, appears mildly uncomfortable, morbidly obese, lethargic and somnolent but otherwise appropriately interactive. HEENT: Normocephalic, atraumatic. External ears without defect. Pupils equal, round, and reactive to light. Anicteric sclerae, moist conjunctivae, and no lid lag. Neck: Supple with full range of motion. No jugular venous distension. No lymphadenopathy or thyromegaly. Cardiovascular: Heart sounds distant but appears to be irregularly irregular without murmurs, rubs, or gallops appreciated Pulmonary: Clear to auscultation bilaterally without crackles, wheezes, or rhonchi. Normal respiratory effort with no use of accessory muscles. Abdomen: Soft, obese, bowel sounds present, nontender, nondistended. No hepatosplenomegaly or masses appreciated. Buttocks: Several stage II pressure ulcerations on sacrum and buttocks covered with foam dressing. Pain to palpation over right ischial tuberosity with mild skin emaciation. Extremities: No clubbing or cyanosis. Mild pitting edema to pretibial area bilaterally L>R significantly improved. Chronic bilateral venous stasis dermatitis. Cellulitis resolved. Small 2 cm venous stasis ulcer on left lateral leg does not appear to be infected. Neurological: Cranial nerves grossly intact. Psychiatric: Depressed mood, withdrawn, and normal affect. Appears to be alert and oriented to person, place, and time. Objective Labs Result Diagrams: 07/10/19 06:50 07/10/19 06:50 Labs: Laboratory Results - last 24 hr 07/10/19 07/10/19 07/10/19 06:50 06:50 06:50 WBC 9.2 RBC 3.69 L Hgb 12.5 L Hct 38.1 L MCV 103.1 H MCH 33.8 MCHC 32.8 RDW 14.9 H Plt Count 147 L Neut % (Auto) 76.7 H Lymph % (Auto) 7.4 L [place] % (Auto) 11.4 Eos % (Auto) 3.6 Baso % (Auto) 0.9 Neut # (Auto) 7100 H Lymph # (Auto) 700 L [place] # (Auto) 1000 H Eos # (Auto) 300 Baso # (Auto) 100 Sodium 140 Potassium 4.0 Chloride 93 L Carbon Dioxide 45 H* BUN 82 H Creatinine 1.60 H Estimated GFR 41.4 L BUN/Creatinine Ratio 51.3 H Glucose 107 Calcium 9.4 Total Bilirubin 0.6 AST 63 H ALT 71 Alkaline Phosphatase 106 Total Protein 6.0 L Albumin 2.9 L Globulin 3.1 Albumin/Globulin Ratio 0.9 L Procalcitonin 0.09 Assessment & Plan Assessment & Plan narrative: Sami Mcneal is an 83-year-old male patient with a past medical history significant for hypertension, hyperlipidemia, diabetes mellitus type 2, insulin using, CHFpEF and persistent atrial fibrillation who was admitted for cellulitis and acute on chronic diastolic heart failure. His course was complicated by over sedation after giving pain medications for worsened low back pain which has been recent, and his back pain is now limiting his ability to work with physical therapy. 1. Acute on chronic low back and buttock pain secondary to stage II pressure ulcerations, present on admission. Active. -Secondary to pressure ulcerations over his sacrum which are likely due to his prolonged immobilization over the past two weeks since a reported fall at home. Pain control is proving difficult and worsens by the day as he becomes more stiff while in his hospital chair and refuses to move. His course was complicated by apnea following treatment for his back pain. The best treatment would be for physical therapy but he has repeatedly refused and is limited when willing to work with physical therapy due to his complaints of pain. Lumbar radiographs were unremarkable as was a CT of his lumbar spine to assess for potential compression fractures or other etiologies. Considered MRI to look for other ligamentous and soft tissue pathology but patient adamantly refuses. -Continue pain control with methocarbamol 500 mg every 8 hours, tylenol 650 mg every 6 hours, lidocaine patch daily, oxycodone every 6 hours as needed and gabapentin increased from 300 mg daily at bedtime to 300 mg twice daily. -Continue steroid burst with prednisone 40 mg daily x5 days for intractable back pain. -Continue physical and occupational therapy as pain allows. -Continue sacral offloading with waffle pillow and frequent turns. Encourage patient to get out of chair to bed if patient and family will allow. 2. Acute on chronic cor pulmonale, present on admission. Active. -Patient presented with worsening shortness of breath, peripheral edema and hypoxemia. -Echocardiogram demonstrated: Left ventricular wall thickness is moderately increased. Diastolic parameters suggest a restrictive filling pattern consistent with probable significantly elevated filling pressures (grade 3 diastolic dysfunction). Flattened septum is consistent with RV volume overload. RV appears mild-moderately enlarged but the image quality is suboptimal for accurate assessment. Right ventricular systolic function is at the lower limits of normal. The RVSP is estimated to be at least 76 mmHg based on estimated right atrial pressure of 15 mmHg. There is moderate to severe mitral annular calcification. 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 -Continue to monitor strict I&O and daily weights. Net - 8.3L. -Discontinued IV diuresis as renal function increasing and overall diuresis appears adequate. Plan for diuretic vacation tomorrow and restart PO furosemide at slightly higher dose of 60 mg daily. -Continue low-sodium diet 2g and fluid restriction of 1.5 L. -Continue to monitor electrolytes closely and replete as necessary. Goal K > 4.0 and Mg > 2.0. 3. Acute on chronic hypercarbic and hypoxemic respiratory failure, present on admission. Active. -Multifactorial and secondary to cor pulmonale, over-sedation with medications for his back pain, BIMAL and OHS causing a chronic hypercarbic respiratory failure as noted by his elevated CO2 on ABGs. -Continue supplemental oxygen as needed to keep oxygen saturation 88-92%. -Ordered BIMAL protocol for BiPAP to improve hypercarbia and overall alertness and energy level but patient adamantly refuses. Continue to attempt use. 4. Bilateral calf venous stasis ulcers with cellulitis, present on admission. Cellulitis resolved. -Wound culture has grown Klebsiella oxytoca which is sensitive to ceftriaxone. Continued ceftriaxone 1 g IV daily x7 days total. Vancomycin was discontinued. His cellulitis appears to be resolved. -He is treated with Eliquis so a DVT is unlikely. 5. Persistent atrial fibrillation, chronic, present on admission. Stable. -Continue Eliquis 2.5 mg twice daily and amiodarone 100 mg daily. 6. Diabetes mellitus type II, insulin-using, chronic, present on admission. Stable. -Hemoglobin A1C 6.2% in 11/2018. -Continue Lantus 16 units daily. Discontinued glipizide -Continue ACHS blood glucose checks. 7. Possible LEANN on chronic kidney disease stage III, present on admission. Acute kidney injury resolved. -Baseline creatinine appears to be 1.8-1.9. Initial creatinine 2.10. Trended down to low as 1.4 with diuresis and improved renal perfusion. Creatinine now 1.6. -Avoid nephrotoxic agents and optimize renal perfusion. -Continue to monitor renal function daily. 8. Hypertension, chronic, present on admission. Stable. -Continue hydralazine 10 mg three times daily and isosorbide mononitrate 30 mg daily. 9. Hyperlipidemia, chronic, present on admission. Stable. -Continue rosuvastatin 10 mg daily at bedtime. 10. Acute demand ischemia, present on admission. Stable. -Secondary to hypoxemia and decreased perfusion from CHF exacerbation. -EKG demonstrated LBBB. No complaints of chest pain. -Echocardiogram reading from 07/04/19 demonstrated grade 3 diastolic dysfunction. -Initial troponin 0.114 and repeat trended down to 0.081. No longer trending. 11. BPH, chronic, present on admission. Stable. -Continue tamsulosin 0.4 mg daily at bedtime. Code Status: DNR Disposition: Patient likely to discharge to [facility] facility tomorrow for continued rehabilitation and need for physical and occupational therapy.
--- NOTE | 2019-07-10 14:47 | CM.DPC ---
Addendum entered by Abida Lopez R.N. 07/10/19 16:04: Dr. Mitchell had extensive conversation with son, Chip. Updated him regarding back pain, skin ulcers, and immobility. Patient does not want any MRI, which son has inquired upon. Patient's son was updated regarding medical stability, and readiness for discharge tomorrow. Chau had called this planner intern back after hearing back from his brother. Mentioned that patient will be ready for discharge tomorrow. Chau was asking if patient could possibly go to [facility], which is a skilled facility near [place], where he lives. He gave this supervisor case loading phone number of: [phone]. Fax number is: [phone]. Called admissions, left a message with Bo, and let him know that referral would be sent. Gave him this supervisor case loading's phone number. Let sonChau know, that uncertain if patient could go to this facility, and [facility] is facility that will accept tomorrow. Could possibly hear from [facility]. If son chooses to have patient go there [facility] transportation intermediary, could be an option. Transportation could also be an issue, since he has Medicare and they may be selective of transport, since this is approximately 100 [place] away. Will plan on meeting with son tomorrow. Went ahead and faxed referral. Plan is for DC tomorrow. Original Note: DCP Cont: Called son, Chau, to reach out and collaborate regarding patient's discharge planning. Confirmed with [facility] that they can accept patient tomorrow. Chau had voiced concerns. Stated, that's kind of premature, he is continuing to have severe pain, and what is rehab going to do? Let him know that hospitalist is working on pain medication management. Other concerns are wounds to sacral area that can be causing the pain, due to lack of mobility. Asked sonChau, how patient was doing at home before he was admitted here. He stated that he was getting around with a walker. Son also stated, your hospitalist was supposed to call my brother Chip yesterday, and she has yet to do so, which is inappropriate. Let him know that hospitalist is planning on speaking to Chip today. Chau continues to state, I think that my dad needs to go to [facility]. Hospital is not accepting patient. P: DCP to follow closely. Will collaborate with Dr. Mitchell regarding conversation with son, Chip, and what inspires. Patient is eligible for detention at [facility] tomorrow. Abida Lopez RN/Dental Chair Assembler
--- NOTE | 2019-07-10 14:53 | PC.NURSE ---
Alt skin: Pt reports his cellulitis in the lower legs has improved. They are less swollen since he has been getting the lasix IV. Less red, he is getting bactroban to the lower legs. Pt requires much enc to off load any pressure to the buttocks in anyway. He did allow us to reposition him twice and then he did go back to the bed with max assist from PT and sit to stand lift. He is still in the bed, turned to the side. Pt reports he can stay their for awhile longer but will then have to go back to the chair. Pt has concerns about some of his care at the hospital. People are not being as understanding about his needs as he thinks they could be or that he may not be trying enough. Got teary about hospice offer. Pt allowed to verb feelings. Pt reports his son will be assisting him in this manner and make a formal complaint. Pt has had some red sediment in urine. MD Mitchell made aware and no new orders for now. Has been on antibiotics. It has been a challenge to get pt to follow MD recommendations. Reports his back hurts to much to get up and move but then ref pain med when it was offered saying he didn't need something at that time. Had to be enc to take pain meds at [facility] so he could work with PT/OT this afternoon. Has been in bed since this afternoon off loading pressure to the buttocks per md request. Did call for some repositioning at various times and this was done. Cont w/poc.
[2019-07-10] MEDS: TAMSULOSIN 0.4 MG CAPSULE PO (16:57)
[2019-07-10] MEDS: ISOSORBIDE MONONITRATE ER 30 MG TABLET PO (16:57)
[2019-07-10] MEDS: ROSUVASTATIN 10 MG TABLET PO (16:57)
[2019-07-10] MEDS: AMIODARONE 100 MG TABLET PO (17:00)
[2019-07-10] MEDS: INSULIN ASPART 100 UNIT/ML INSULN PEN SUBCUT ×2 (17:00→20:26)
[2019-07-10] MEDS: GABAPENTIN 300 MG CAPSULE PO (20:35)
[2019-07-11 05:00] VITALS: BP 130/70; PULSE 56; RESP 18; TEMP 36.4; O2SAT 97
[2019-07-11] MEDS: ACETAMINOPHEN 325 MG TABLET 650 MG PO ×2 (05:11→11:43)
[2019-07-11 05:46] LABS: Alanine Aminotransferase 65 IU/L (21-72); Albumin 2.9 g/dL (3.5-5.0); Albumin Globulin Ratio 0.9 (1.0-2.8); Alkaline Phosphatase 120 U/L (38-126); Aspartate Aminotransferase 47 IU/L (17-59); BUN Creatinine Ratio 55.7 (6-22); Bilirubin Total 0.5 mg/dL (0.2-1.3); Blood Urea Nitrogen 78 mg/dL (9-20); Calcium 9.6 mg/dL (8.4-10.2); Chloride 92 mmol/L (98-107); Estimated Glomerular Filt Rate 48.3 mL/min (>60); Globulin 3.2 g/dL (1.7-4.1); Glucose 310 mg/dL (80-110); HEMOLYSIS < 15 (0-50); Magnesium 2.2 mg/dL (1.6-2.3); Potassium 4.5 mmol/L (3.4-5.1); Sodium 138 mmol/L (137-145); Total Protein 6.1 g/dL (6.3-8.2)
[2019-07-11 06:04] LABS: Carbon Dioxide 44 mmol/L (22-32)
[2019-07-11 07:00] VITALS: O2SAT 92
[2019-07-11 08:05] VITALS: BP 143/93; PULSE 55; RESP 17; TEMP 36.1; O2SAT 96
[2019-07-11 08:39] VITALS: PULSE 57; RESP 16; O2SAT 96
[2019-07-11] MEDS: DOCUSATE 100 MG CAPSULE PO (08:44)
[2019-07-11] MEDS: INSULIN ASPART 100 UNIT/ML INSULN PEN SUBCUT ×2 (08:45→12:36)
[2019-07-11] MEDS: INSULIN GLARGINE 100 UNIT/ML 3ML PEN 16 UNIT SUBCUT (08:47)
[2019-07-11] MEDS: POTASSIUM CHLORIDE 10 MEQ TAB 20 MEQ PO (08:52)
[2019-07-11] MEDS: GABAPENTIN 300 MG CAPSULE PO (08:52)
[2019-07-11] MEDS: MAGNESIUM OXIDE 400 MG TABLET PO (08:52)
[2019-07-11] MEDS: METHOCARBAMOL 500 MG TABLET PO (08:52)
[2019-07-11] MEDS: CHOLECALCIFEROL (VITAMIN D3) 1,000 UNIT TABLET 1000 UNIT PO (08:52)
[2019-07-11] MEDS: predniSONE 20 MG TABLET 40 MG PO (08:53)
[2019-07-11] MEDS: HYDRALAZINE 10 MG TABLET PO (09:00)
[2019-07-11] MEDS: APIXABAN 5 MG TABLET 2.5 MG PO (09:27)
--- NOTE | 2019-07-11 09:57 | P.DS_ITS ---
History of Present Illness History of Present Illness Date Patient Seen: 07/11/19 Chief complaint: Wound Eval/hypox Narrative: Written by Dr. Lua: This is an 83 year old male with bilateral leg cellulitis and hypoxia. He is also in Congestive Heart Failure. He comes over from [facility] after a physician visit this morning for leg ulcers where he says his primary care suggested that he needed inpatient wound care. On arrival to our emergency department he was noted to be hypoxic with a saturation of 88% on room air. 1 L of nasal cannula oxygen recovered him into the 90s but with any exertion he continued to drop into the 80s. His troponin is 0.114 with a procalcitonin of 0.2 and a BNP of 786. He has been started on Lasix along with antibiotics. He has not had cellulitis of his legs before. He has felt febrile and thinks his temperature has reached 99.6 at home but he is unclear about how long the legs have been red. He has fallen recently. His is disabled by her own fall and clavicle fracture at home now. He is very concerned that he receive a urinary catheter if he is going to be on Lasix. He has no symptoms to suggest ischemia other than the hypoxia and has chronic kidney disease to a point that would also be expected to contribute to an elevated troponin. There is no significant pulmonary edema or infiltrate on chest x-ray. Discharge Providers Provider Date of admission: 07/02/19 15:23 Discharge Date: 07/11/19 Primary care physician: Rene Clark MD Consults: 07/03/19 10:07 Consult to Physical Therapy Evaluate & Treat Comment: Physician Instructions: Evaluate and Treat 07/03/19 10:08 Consult to Occupational Therapy Evaluate & Treat Comment: Physician Instructions: Evaluate and treat 07/04/19 18:01 Consult to Respiratory Therapy Evaluate & Treat Comment: Physician Instructions: Evaluate and treat 07/08/19 11:24 Consult to Respiratory Therapy Evaluate & Treat Comment: Physician Instructions: Evaluate and treat Discharge provider: Evon Mitchell DO Summary Hospital Course Discharge Diagnosis: 1. Acute on chronic low back and buttock pain secondary to stage II sacral decubitus pressure ulcerations, present on admission. Active. 2. Acute on chronic cor pulmonale, present on admission. Acute exacerbation resolved. 3. Acute on chronic hypercarbic and hypoxemic respiratory failure, present on admission. Active. 4. Bilateral calf venous stasis ulcers with cellulitis, present on admission. Cellulitis resolved. 5. Persistent atrial fibrillation, chronic, present on admission. Stable. 6. Diabetes mellitus type II, insulin-using, chronic, present on admission. Stable. 7. Probable LEANN on chronic kidney disease stage III, present on admission. Acute kidney injury resolved. 8. Hypertension, chronic, present on admission. Stable. 9. Hyperlipidemia, chronic, present on admission. Stable. 10. Acute demand ischemia, present on admission. Resolved. 11. BPH, chronic, present on admission. Stable. Hospital Course: Sami Mcneal is an 83-year-old male patient with a past medical history significant for hypertension, hyperlipidemia, diabetes mellitus type 2, insulin using, CHFpEF and persistent atrial fibrillation who was admitted for cellulitis and acute on chronic diastolic heart failure. His course was complicated by o broderick sedation after giving pain medications for worsened low back pain which has been recent, and his back pain is now limiting his ability to work with physical therapy. 1. Acute on chronic low back and buttock pain secondary to stage II sacral decubitus pressure ulcerations, present on admission. Active. -Secondary to pressure ulcerations over his sacrum which are likely due to his prolonged immobilization over the past two weeks since a reported fall at home. Pain control is proving difficult and worsens by the day as he becomes more stiff while in his hospital chair and refuses to move. His course was complicated by apnea due to respiratory depression from narcotic use for treatment of back and buttock pain. The best treatment would be for physical therapy but he has repeatedly refused and is limited when willing to work with physical therapy due to his complaints of pain. Lumbar radiographs were unremarkable as was a CT of his lumbar spine to assess for potential compression fractures or other etiologies. Considered MRI to look for other ligamentous and soft tissue pathology but patient adamantly refuses. -Continued pain control with methocarbamol 500 mg every 8 hours, tylenol 650 mg every 6 hours, lidocaine patch daily, oxycodone 5 mg every 4 hours as needed (premedicate before PT) and gabapentin increased from 300 mg daily at bedtime to 300 mg twice daily (continue to uptitrate to effect outpatient). Continued to be as aggressive with pain regimen as possible but without inducing respiratory depression and worsening hypercarbia. Patient now willing to use BiPAP while sleeping and will relay tester helper in pain management. -Continued steroid burst with prednisone 40 mg daily for 5 days total for any inflammatory component and intractable back pain. -Continued physical and occupational therapy as pain allowed. -Continued sacral offloading with waffle pillow and frequent turns. Encouraged patient to be in bed vs chair as able to turn more readily. 2. Acute on chronic cor pulmonale, present on admission. Acute exacerbation resolved. -Patient presented with worsening shortness of breath, peripheral edema and hypoxemia. -Echocardiogram demonstrated: Left ventricular wall thickness is moderately increased. Diastolic parameters suggest a restrictive filling pattern consistent with probable significantly elevated filling pressures (grade 3 diastolic dysfunction). Flattened septum is consistent with RV volume overload. RV appears mild-moderately enlarged but the image quality is suboptimal for accurate assessment. Right ventricular systolic function is at the lower limits of normal. The RVSP is estimated to be at least 76 mmHg based on estimated rig ht atrial pressure of 15 mmHg. There is moderate to severe mitral annular calcification. 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 -Continued to monitor strict I&O and daily weights. Net - 8.3L. Discontinued IV diuresis as patient was adequately diuresed. Continued PO furosemide increased from 40 mg daily to 80 mg daily. -Continued low-sodium diet 2g and fluid restriction of 1.5 L. -Continued to monitor electrolytes closely and replete as necessary. Goal K > 4.0 and Mg > 2.0. 3. Acute on chronic hypercarbic and hypoxemic respiratory failure, present on admission. Active. -Multifactorial and secondary to cor pulmonale, pulmonary hypertension, over- sedation with medications for his back pain, BIMAL and OHS causing a chronic hypercarbic respiratory failure as noted by his elevated CO2 on ABGs. -Continued supplemental oxygen as needed to keep oxygen saturation 88-92%. -Continued BIMAL protocol for BiPAP to improve hypercarbia and overall alertness and energy level for which patient is now willing to use and is more awake and alert after use as anticipated. 4. Bilateral calf venous stasis ulcers with cellulitis, present on admission. Cellulitis resolved. -Wound culture has grown Klebsiella oxytoca which is sensitive to ceftriaxone. Completed course of ceftriaxone 1 g IV daily x 7 days. Vancomycin was discontinued. His cellulitis is resolved. -He is treated with Eliquis so a DVT is unlikely. 5. Persistent atrial fibrillation, chronic, present on admission. Stable. -Continued Eliquis 2.5 mg twice daily and amiodarone 100 mg daily. 6. Diabetes mellitus type II, insulin-using, chronic, present on admission. Stable. -Hemoglobin A1C 6.2% in 11/2018. -Continued Lantus 16 units daily. Discontinued glipizide as patient hypoglycemic and blood glucose well controlled. May consider titration down of Lantus as outpatinet if blood glucose permits. -Continued [facility] blood glucose checks. 7. Probable LEANN on chronic kidney disease stage III, present on admission. Acute kidney injury resolved. -Baseline creatinine appears to be 1.8-1.9. Initial creatinine 2.10. Trended down to low as 1.4 with diuresis and improved renal perfusion. -Avoided nephrotoxic agents and optimized renal perfusion. -Continued to monitor renal function daily. 8. Hypertension, chronic, present on admission. Stable. -Continued hydralazine 10 mg three times daily and isosorbide mononitrate 30 mg daily. 9. Hyperlipidemia, chronic, present on admission. Stable. -Continued rosuvastatin 10 mg daily at bedtime. 10. Acute demand ischemia, present on admission. Resolved. -Secondary to hypoxemia and decreased perfusion from CHF exacerbation. -EKG demonstrated LBBB. No complaints of chest pain. -Echocardiogram reading from 07/04/19 demonstrated grade 3 diastolic dysfunction. -Initial troponin 0.114 and repeat trended down to 0.081. No longer trending. 11. BPH, chronic, present on admission. Stable. -Continued tamsulosin 0.4 mg daily at bedtime. Exam Vital Signs (past 8 hours): - 07/11/19 05:00 07/11/19 08:05 07/11/19 08:39 Temperature 97.6 F 97 F L Pulse Rate 56 L 55 L 57 L Respiratory Rate 18 17 16 Blood Pressure 130/70 143/93 H Pulse Oximetry 97 96 96 Oxygen Delivery Method Room Air Oxygen Flow Rate 1 Narrative Exam Narrative: General: Elderly male lying in bed and in no acute distress, appears mildly uncomfortable, morbidly obese, awake, alert and appropriately interactive. Somnolence resolved with BiPAP use. HEENT: Normocephalic, atraumatic. External ears without defect. Pupils equal, round, and reactive to light. Anicteric sclerae, moist conjunctivae, and no lid lag. Neck: Supple with full range of motion. No jugular venous distension. No lymphadenopathy or thyromegaly. Cardiovascular: Heart sounds distant but appears to be irregularly irregular without murmurs, rubs, or gallops appreciated. Pulmonary: Clear to auscultation bilaterally without crackles, wheezes, or rhonchi. Normal respiratory effort with no use of accessory muscles. Abdomen: Soft, obese, bowel sounds present, nontender, nondistended. No h epatosplenomegaly or masses appreciated. Buttocks: Several stage II sacral/buttock decubitus pressure ulcerations covered with foam dressing. Pain to palpation over right ischial tuberosity with mild skin emaciation. Extremities: No clubbing or cyanosis. Mild pitting edema to ankles bilaterally significantly improved. Chronic bilateral venous stasis dermatitis. Cellulitis resolved. Small 2 cm venous stasis ulcer on left lateral leg does not appear to be infected. Neurological: Cranial nerves grossly intact. Psychiatric: Depressed mood, withdrawn, and normal affect. Appears to be alert and oriented to person, place, and time. Objective Labs Result Diagrams: 07/10/19 06:50 07/11/19 05:15 Labs: Laboratory Results - last 24 hr 07/11/19 05:15 Sodium 138 Potassium 4.5 Chloride 92 L Carbon Dioxide 44 H* BUN 78 H Creatinine 1.40 H Estimated GFR 48.3 L BUN/Creatinine Ratio 55.7 H Glucose 310 H D Calcium 9.6 Magnesium 2.2 Total Bilirubin 0.5 AST 47 ALT 65 Alkaline Phosphatase 120 Total Protein 6.1 L Albumin 2.9 L Globulin 3.2 Albumin/Globulin Ratio 0.9 L Discharge Plan Discharge Plan Patient Disposition: SNF Transfer to: [facility] Under care of provider: Foxing Painter Discharge Med Rec/Prescriptions Prescriptions: New methocarbamol 500 mg Tablet 500 mg PO Q8H Qty: 30 RF: 0 acetaminophen 325 mg Tablet 650 mg PO Q6HR Qty: 30 RF: 0 polyethylene glycol 3350 17 gram Powder In Packet 17 g PO DAILY PRN (Reason: Constipation) Qty: 30 RF: 0 prednisone 20 mg Tablet 40 mg PO DAILY Qty: 3 RF: 0 bisacodyl 10 mg Suppository 10 mg NJ DAILY PRN (Reason: Constipation) Qty: 30 RF: 0 lidocaine 5 % Adhesive Patch,Medicated 1 ea topical DAILY Qty: 10 RF: 0 docusate sodium [DOK] 100 mg Capsule 100 mg PO BID Qty: 30 RF: 0 gabapentin [Neurontin] 300 mg Capsule 300 mg PO BID Qty: 60 RF: 0 nystatin [Nystop] 100,000 unit/gram Powder 1 applic topical BID PRN (Reason: Rash) Qty: 15 RF: 0 oxycodone 5 mg Tablet 5 mg PO Q4HR PRN (Reason: Pain, Moderate (4-6)) Qty: 20 RF: 0 Continued rosuvastatin [Crestor] 10 MG tablet 10 mg PO QPM Qty: 0 RF: 0 B1/B2/NIACIN/B12/PROTEASE (B-Complex With B-12 Tablet) 1 tab PO DAILY Qty: 0 RF: 0 amiodarone 200 mg tablet 100 mg PO DAILY RF: 0 tamsulosin 0.4 mg capsule 0.4 mg PO QPM RF: 0 isosorbide mononitrate 30 mg tablet extended release 24 hr 30 mg PO DAILY RF: 0 potassium chloride 10 mEq capsule, extended release 20 meq PO DAILY RF: 0 oxymetazoline 0.05 % spray,non-aerosol 2 spray Intranasal PRN PRN (Reason: (Drug) Ingestion) RF: 0 hydralazine 10 mg tablet 10 mg PO TID RF: 0 Magnesium (oxide/AA chelate) 300 mg Capsule 1 tab PO QAM RF: 0 cholecalciferol (vitamin D3) [Vitamin D3] 1,000 unit Capsule 1,000 unit PO DAILY RF: 0 Super Cranberry 140-100 mg Capsule 1 tab PO QAM RF: 0 hydrocortisone valerate 0.2 % ointment 1 applic TOPICAL DAILY RF: 0 mupirocin 2 % ointment 1 applic TOPICAL TID RF: 0 Lantus Solostar U-100 Insulin 100 unit/mL (3 mL) insulin pen 16 unit SUBCUT DAILY RF: 0 Eliquis 2.5 mg tablet 2.5 mg PO BID RF: 0 Changed furosemide 40 mg tablet 80 mg PO DAILY Qty: 60 RF: 0 Discontinued Lantus U-100 Insulin 100 UNIT/1 ML solution 16 unit SQ QAM Qty: 0 RF: 0 glipizide 5 MG tablet 5 mg PO DAILY Qty: 0 RF: 0 Follow up/Referrals: Rene Clark MD [Primary Care Provider] - Discharge Health Status Brief summary of current health status: Sami Mcneal is an 83-year-old male patient with a past medical history significant for hypertension, hyperlipidemia, diabetes mellitus type 2, insulin using, CHFpEF and persistent atrial fibrillation who was admitted for cellulitis and acute on chronic diastolic heart failure. His course was complicated by over sedation after giving pain medications for worsened low back pain which has been recent, and his low back and buttock pain due to sacral decubitus ulcers, in addition to unwillingness to participate in care is limiting his ability for rehabilitation. Multidrug resistant organism: No MDRO Provider Discharge Instructions Diet: Diet as Tolerated, Low-fat, Low-sodium and Low-cholesterol Diet comment: Sodium restriction 2g and fluid restriction 1.5 L Activity: Activity as tolerated with FWW and physical and occupational therapy Catheter: 2-way Robison Catheter comment: may remove robison once mobilization has improved Oxygen: oxygen as necessary to keep 88-92%, Auto Biflex while sleeping or napping Skin/Wound/Dressing Care Other wound treatment: Cover sacral decuibitus ulcers with Alleyvn or hydrocolloid dressing and replace daily, recommend wound consult [facility] Reason for rehabilitation: Recovery r/t decondition Rehab type: Physical therapy and Occupational therapy Discharge Data Primary Care Provider: Rene Clark
[2019-07-11] MEDS: LIDOCAINE PATCH 1 EACH ADH..PATCH TOP (10:01)
[2019-07-11] MEDS: MUPIROCIN 22 GM OINT 1 APPLIC TOP (10:02)
[2019-07-11] MEDS: SODIUM CHLORIDE 0.9% FLUSH 10 ML IV (10:02)
[2019-07-11] MEDS: HYDROCORTISONE 2.5% CREAM 30 GM 1 APPLIC TOP (10:03)
[2019-07-11] MEDS: OXYCODONE IR 5 MG TABLET PO ×2 (10:03→13:41)
[2019-07-11] MEDS: FUROSEMIDE 40 MG TABLET 80 MG PO (10:05)
--- NOTE | 2019-07-11 11:37 | PC.NURSE ---
Addendum entered by Stacy Fonseca R.N. 07/11/19 15:00: DC/TSF - prior to transfer to [facility], given 5mg po oxycodone, as pt son in room and assisting with packing belongings, including a brown wallet with a check and cards, no money found in pt pocket, he also stated that he had a brown bison wallet or pouch that had approx $190 when he was admitted, the adm record was check and it was not listed, nor was it in the safe, his belongings were once again thoroughly searched, all pockets, the bag and this item was not here. The son placed a call to his mother on [place] to see if it might be at home, coordinator Julia was assisting with search and also took down pt info so that follow up can be done, the pt remaining items, including cell phone, fitness professional, clothing were packed, pt has his glasses, with assist using slider board, pt tsf to ricardo, the packet including script included given to ambul personnel, report called to Carol at [facility]. Original Note: AM NOTE - pt asleep with cpap on, removed for breakfast, ra 91-92%, robison w/clear yellow urine, carlos le edema, dry, flaky skin feet, redness carlos le w/scabbed area medial r calf, not draining, does have dry scabbing to l hand, open areas r skin fold, dark red, purple discoloration to buttocks, after given 5mg oxycodone this am, magalie care performed, removed the allevyn dsg buttock and cleaned and replaced, pt becomes easily agitated and shouts stop when moved, repositioning and turning done very slowly for pt to tolerate, repositioned r side.
--- NOTE | 2019-07-11 11:48 | CM.DPC ---
DCP Cont: Dr. Mitchell, hospitalist, is discharging patient today, for he is medically stable. Had not heard back from [facility]. Called and updated son, Chau, who is on his way. He is aware that patient will be going to [facility] today. Spoke to patient, and had him sign his IMM, he had just seen Dr. Mitchell. Med sheets signed, PASSR completed. Dr. Mitchell is wanting patient to have a BIPAP at [facility]. Called Kirti in admissions at [facility], and she stated that they can order him the BIPAP, but has to go through their pharmacy, which is [facility]. She mentioned that there is usually not a respiratory therapist at the pharmacy on Sundays, and wants to ensure that he can go without it today. Had Dr. Mitchell write the order for BIPAP on prescription pad, and was consulting with hospital RT regarding settings. She added on prescription that he can have starting tomorrow, Friday. Set up BLS transport for patient to be picked up at 1400. Faxed over prescriptions, signed med lists, discharge summary, and PASSR. Placed paper work in patient's red folder. Nurse, Stacy, is aware. Spoke to son, Chau again. He is in patient's room. Is agreeable to plan, just wants to ensure that communication regarding his dad is carried over to [facility]. Had Dr. Mitchell call and speak to Kirti at [facility] to ensure that there was no missed communication. Updated Chau regarding this. Let him know orange picking supervisor time. He may be speaking to Dr. Mitchell today before patient is discharged. P: Patient is to be discharged to [facility] today via BLS. Updated white board at main nurses station regarding orange picking supervisor time as well. Abida Lopez, ROHIT/Senior Administrative Assistant
[2019-07-11 12:00] VITALS: BP 102/47; PULSE 69; RESP 17; TEMP 36.3; O2SAT 83
== END 2019-07-11 14:25 | DRG 291 ==
LOC: ED 15:01 → AC 15:24 → ICU 07-05 15:53 → AC 07-05 19:37
PROVIDERS: Internal Medicine; Nurse Practitioner Family; Admitting Provider Family Medicine; Emergency Provider Emergency Medicine; Family Provider Family Medicine; PCP Family Medicine; Visit Provider Family Medicine
DX: I13.0 Hypertensive heart and chronic kidney disease with heart failure and stage 1 through stage 4 chronic kidney disease, or unspecified chronic kidney disease (principal); I50.33 Acute on chronic diastolic (congestive) heart failure; J96.21 Acute and chronic respiratory failure with hypoxia; J96.22 Acute and chronic respiratory failure with hypercapnia; N17.9 Acute kidney failure, unspecified; L03.116 Cellulitis of left lower limb; L03.115 Cellulitis of right lower limb; L97.229 Non-pressure chronic ulcer of left calf with unspecified severity; L97.219 Non-pressure chronic ulcer of right calf with unspecified severity; Z68.41 Body mass index [BMI] 40.0-44.9, adult; I48.19 Other persistent atrial fibrillation; I24.8 Other forms of acute ischemic heart disease; N39.0 Urinary tract infection, site not specified; L89.152 Pressure ulcer of sacral region, stage 2; I27.81 Cor pulmonale (chronic); I27.20 Pulmonary hypertension, unspecified; N18.3 Chronic kidney disease, stage 3 (moderate); E11.22 Type 2 diabetes mellitus with diabetic chronic kidney disease; Z79.84 Long term (current) use of oral hypoglycemic drugs; E11.21 Type 2 diabetes mellitus with diabetic nephropathy; E11.40 Type 2 diabetes mellitus with diabetic neuropathy, unspecified; E78.5 Hyperlipidemia, unspecified; E66.9 Obesity, unspecified; R53.83 Other fatigue; T42.4X5A Adverse effect of benzodiazepines, initial encounter; T40.2X5A Adverse effect of other opioids, initial encounter; Y92.230 Patient room in hospital as the place of occurrence of the external cause; M62.830 Muscle spasm of back; I44.7 Left bundle-branch block, unspecified; N40.0 Benign prostatic hyperplasia without lower urinary tract symptoms; Z87.891 Personal history of nicotine dependence; Z66 Do not resuscitate; B96.1 Klebsiella pneumoniae [K. pneumoniae] as the cause of diseases classified elsewhere
CPT/HCPCS: 36415; 36600; 70450; 71045; 72020; 72131; 80048; 80053; 80202; 81001; 82550; 82565; 82805; 82962; 83036; 83605; 83735; 83880; 84100; 84145; 84484; 85025; 85610; 85730; 87040; 87070; 87075; 87077; 87186; 87205; 87797; 93005; 93306; 94660; 94760; 94762; 94770; 96365; 96375; 97162; 97166; 97530; 97535; 99283; 99284; J1940; J3370; Q9957

== ENCOUNTER 2019-07-26 09:16 | Emergency (ER) | payer MEDICARE, SELFPAY ==
[2019-07-26] VITALS (42 sets, daily range): BP systolic 88–136; BP diastolic 51–92; PULSE 55–72; RESP 13–22; TEMP 36.5; O2SAT 68–98
--- NOTE | 2019-07-26 09:18 | ED_ITS ---
HPI - Altered Mental Status General Chief Complaint: Shortness of Breath/Dyspnea Stated Complaint: Chronic sacral infection Time Seen by Provider: 07/26/19 09:16 Source: patient and EMS Mode of arrival: EMS Limitations: altered mental status History of Present Illness HPI narrative: 84-year-old male comes emergency department with decreased mental status. Per EMS patient may have an infection from a single infection. Patient has decreased mental status today. Patient can tell me he has has pain but is not able to give me much other information. After O2, patient's mental status improved. He stable tongue has pain in his lower back area. Patient denies fevers. He states he does feel short of breath. He denies any chest pain or pressure. He does not feel nauseated. He denies any new changes with his urine output in his [place]. No issues with bowel movements. Patient has a pretty significant history for epidural abscess between the shoulders, he has had multiple back surgeries. And was hospitalized for infections in his lower extremities and sacral area. Patient was also admitted for suspected stroke in June. Since then he has been back filled out a rehab. Patient's family have been attempting to get him transferred to [facility] for further evaluation. Patient has had multiple back surgeries including treatment for the epidural abscess and lower back. Patient also has a history of CHF. Atrial fibrillation and chronic kidney disease. Much of patient's history was filled in by his son. Related Data Home Medications Medication Instructions Recorded Confirmed B1/B2/NIACIN/B12/PROTEASE 1 tab PO DAILY #0 02/26/12 07/26/19 (B-Complex With B-12 Tablet) rosuvastatin [Crestor] 10 mg PO QPM #0 02/26/12 07/26/19 Magnesium (oxide/AA chelate) 1 tab PO QAM 12/09/18 07/26/19 Super Cranberry 1 tab PO QAM 12/09/18 07/26/19 amiodarone 100 mg PO DAILY 12/09/18 07/26/19 cholecalciferol (vitamin D3) 1,000 unit PO DAILY 12/09/18 07/26/19 [Vitamin D3] hydralazine 10 mg PO TID 12/09/18 07/26/19 isosorbide mononitrate 30 mg PO DAILY 12/09/18 07/26/19 oxymetazoline 2 spray INTRANASAL PRN PRN 12/09/18 07/26/19 potassium chloride 20 meq PO DAILY 12/09/18 07/26/19 tamsulosin 0.4 mg PO QPM 12/09/18 07/26/19 Eliquis 2.5 mg PO BID 07/02/19 07/26/19 Lantus Solostar U-100 Insulin 16 unit SUBCUT DAILY 07/02/19 07/26/19 hydrocortisone valerate 1 applic TOPICAL PRN PRN 07/02/19 07/26/19 mupirocin 1 applic TOPICAL PRN PRN 07/02/19 07/26/19 bisacodyl 10 mg MS PRN PRN 07/26/19 07/26/19 docusate sodium [DOK] 100 mg PO PRN PRN 07/26/19 07/26/19 glipizide 5 mg PO DAILY 07/26/19 07/26/19 nystatin [Nystop] 1 applic TOPICAL PRN PRN 07/26/19 07/26/19 polyethylene glycol 3350 17 g PO PRN PRN 07/26/19 07/26/19 Previous Rx's Medication Instructions Recorded acetaminophen 650 mg PO Q6HR #30 tab 07/11/19 furosemide 80 mg PO DAILY #60 tab 07/11/19 lidocaine 1 ea TOPICAL DAILY #10 ea 07/11/19 oxycodone 5 mg PO Q4HR PRN #20 tab 07/11/19 Allergies Allergy/AdvReac Type Severity Reaction Status Date / Time hydralazine Allergy Mild Verified 07/26/19 11:08 hydrocodone Allergy Verified 07/26/19 11:08 isradipine Allergy Verified 07/26/19 11:08 lorazepam AdvReac Severe Confusion Verified 07/26/19 11:08 atorvastatin AdvReac Verified 07/26/19 11:08 morphine AdvReac Verified 07/26/19 11:08 tramadol AdvReac Verified 07/26/19 11:08 Review of Systems Review of Systems ROS Unobtainable: Unobtainable due to mental status/LOC Patient History Medical History Atrial fibrillation (Acute) Diabetes (Acute) Hyperlipidemia (Acute) Hypertension (Acute) Osteoarthritis (Acute) Sleep apnea (Acute) Surgical History History of aortic valve replacement (Acute) History of back surgery (Acute) History of inguinal hernia repair (Acute) History of spinal fusion (Acute) History of total left hip arthroplasty (Acute) History of total right knee replacement (Acute) Social History household members: spouse Smoking Status: Former smoker alcohol intake frequency: holidays/special occasions only Substance Use Type: does not use Exam Narrative Exam Narrative: GEN: Ill-appearing obese elderly male, alert x1, patient appear s to be in severe distress. HEENT: Atraumatic, pupils are equal round reactive to light, extraocular movements are intact, nares are clear, Throat is clear without any exudates, erythema, tonsillar enlargement or uvular deviation, no facial droop. HEART: Regular rate and rhythm without murmur, clicks, rubs. Pulses are equal in upper and lower extremities LUNGS:Lungs decreased bilaterally, no wheezes, positive rales, crackles, no chest moves symmetrically, no tachypnea ABD:bowel sounds normal, soft, non-tender, no guarding, rebound, rigidity, no masses noted, no hepatosplenomegaly :No CVA tenderness, patient has [place] in place. Draining bloody urine with small clots. BACK: No cervical, thoracic or lumbar vertebral point tenderness easily elicited but patient is uncomfortable with being rolled.. Patient has decreased range of motion. Patient's gait is not able to be tested. Patient has 2+ pulses bilateral lower extremities. He has minimal movement his lower extremities. Patient has a large open wound that is several cm deep with foul odor. There is no purulent drainage noted. MSCL: Non-tender. NEURO:CN 2-12 intact, sensation normal, reflexes 2/4 upper and lower extremities Initial Vital Signs Initial Vital Signs: Vital Signs Temperature 97.7 F 07/26/19 09:16 Pulse Rate 67 07/26/19 09:16 Respiratory Rate 19 07/26/19 09:16 Blood Pressure 115/69 07/26/19 09:16 Pulse Oximetry 68 L 07/26/19 09:16 Course Orders Ordered: ED Orders 07/26/19 17:43 Arterial Blood Gas Stat 07/26/19 18:49 Arterial Blood Gas Routine 07/26/19 19:27 Electrolytes Stat Discontinued Medications Albuterol (Ventolin) 2.5 mg INH NOW ONE Stop: 07/26/19 10:20 Last Admin: 07/26/19 10:49 Dose: 2.5 mg Documented by: BENIGNO Dextrose (D50w) 25 gm IV NOW ONE Stop: 07/26/19 10:20 Last Admin: 07/26/19 10:54 Dose: 25 gm Documented by: BENIGNO Dextrose (D50w) 25 gm IV NOW ONE Stop: 07/26/19 20:01 Last Admin: 07/26/19 20:13 Dose: 25 gm Documented by: CLAUDIA Furosemide (Lasix) 60 mg IV NOW ONE Stop: 07/26/19 10:22 Last Admin: 07/26/19 10:53 Dose: 60 mg Documented by: BENIGNO Calcium Gluconate 4.65 meq/ (Sodium Chloride) 60 mls @ 120 mls/hr IV NOW ONE Stop: 07/26/19 10:20 Last Infusion: 07/26/19 11:35 Dose: 0 mls/hr Documented by: Admin: 07/26/19 11:04 Dose: 120 mls/hr Documented by: BENIGNO Furosemide 120 mg/ Sodium (Chloride) 62 mls @ 124 mls/hr IV NOW ONE Stop: 07/26/19 19:44 Last Admin: 07/26/19 19:52 Dose: 124 mls/hr Documented by: CLAUDIA Insulin Human Regular (Humulin R) 5 unit SUBCUT NOW ONE Stop: 07/26/19 10:20 Last Admin: 07/26/19 11:06 Dose: Not Given Documented by: BENIGNO Insulin Human Regular (Humulin R) 5 unit IV NOW ONE Stop: 07/26/19 11:00 Last Admin: 07/26/19 11:00 Dose: 5 unit Documented by: BENIGNO Cosigned by: NICO Insulin Human Regular (Humulin R) 10 unit IV NOW ONE Stop: 07/26/19 20:01 Last Admin: 07/26/19 20:12 Dose: 10 unit Documented by: CLAUDIA Cosigned by: NAREN Sodium Polystyrene Sulfonate (Kayexalate) 30 gm PO NOW ONE Stop: 07/26/19 10:20 Last Admin: 07/26/19 10:48 Dose: 30 gm Documented by: BENIGNO Vital Signs Vital signs: Vital Signs - 8 hr 07/26/19 12:30 07/26/19 12:45 07/26/19 13:00 Pulse Rate 61 59 L 58 L Respiratory Rate 15 13 16 Blood Pressure [Left Arm] 112/65 112/62 106/62 Pulse Oximetry 96 95 96 07/26/19 13:15 07/26/19 13:30 07/26/19 14:00 Pulse Rate 59 L 60 55 L Respiratory Rate 17 18 19 Blood Pressure [Left Arm] 113/76 114/66 88/70 L Pulse Oximetry 96 97 98 07/26/19 14:15 07/26/19 14:30 07/26/19 14:45 Pulse Rate 60 60 61 Respiratory Rate 17 16 16 Blood Pressure [Left Arm] 112/66 109/91 H 124/65 Pulse Oximetry 97 97 96 07/26/19 15:00 07/26/19 15:05 07/26/19 15:15 Pulse Rate 62 60 61 Respiratory Rate 18 17 18 Blood Pressure [Left Arm] 119/69 112/64 110/60 Pulse Oximetry 97 97 97 07/26/19 15:30 07/26/19 15:45 07/26/19 16:15 Pulse Rate 61 61 61 Respiratory Rate 17 17 16 Blood Pressure [Left Arm] 126/92 H 114/60 111/69 Pulse Oximetry 96 96 96 07/26/19 16:32 07/26/19 16:47 07/26/19 17:02 Pulse Rate 58 L 66 Respiratory Rate 19 16 Blood Pressure [Left Arm] 101/53 L 101/53 L Pulse Oximetry 96 96 88 L 07/26/19 17:10 07/26/19 17:20 07/26/19 17:30 Pulse Rate 70 61 60 Respiratory Rate 17 18 18 Blood Pressure [Left Arm] 117/70 118/70 112/73 Pulse Oximetry 87 L 89 L 92 07/26/19 17:45 07/26/19 18:00 07/26/19 18:15 Pulse Rate 60 60 59 L Respiratory Rate 18 18 18 Blood Pressure [Left Arm] 118/77 109/81 117/68 Pulse Oximetry 92 96 96 07/26/19 18:30 07/26/19 19:00 07/26/19 19:21 Pulse Rate 64 66 60 Respiratory Rate 18 18 18 Blood Pressure [Left Arm] 131/71 118/76 121/85 Pulse Oximetry 96 96 97 MDM - Altered Mental Status Lab Data Attestation: I reviewed the patient's lab results. Result diagrams: 07/26/19 08:40 07/26/19 19:27 Labs: Lab Results 07/26/19 07/26/19 07/26/19 Range/Units 08:40 08:40 08:40 WBC 8.9 (4.5-11.0) X10^3/uL RBC 4.02 L (4.5-5.9) X10^6/uL Hgb 13.5 (13.5-17.5) g/dL Hct 42.6 (41-53) % MCV 106.0 H (80-100) fL MCH 33.7 (26-34) PG MCHC 31.8 (30-36) % RDW 15.1 H (11.6-14.8) % Plt Count 110 L (150-400) X10^3/uL Neut % (Auto) 80.5 H (50-75) % Lymph % (Auto) 8.0 L (25-40) % [place] % (Auto) 10.4 (3-14) % Eos % (Auto) 0.6 L (2-4) % Baso % (Auto) 0.5 (0-2) % Neut # (Auto) 7200 H (4638-5119) /uL Lymph # (Auto) 700 L (1366-8334) /uL [place] # (Auto) 900 (0-900) /uL Eos # (Auto) 100 (0-450) /uL Baso # (Auto) 0 (0-100) /uL PT 14.5 H (10.1-12.7) SECONDS INR 1.2 (0.9-1.3) APTT 34 (26.4-36.2) SECONDS ABG pH (7.35-7.45) ABG pCO2 (35-45) mmHg ABG pO2 (80-100) mmHg ABG HCO3 (22-26) mmol/L ABG Total CO2 (21-31) mmol/L ABG O2 Saturation (95-100) % ABG Base Excess (-2-2) mmol/L FiO2 Sodium 136 L (137-145) mmol/L Potassium 6.0 H (3.4-5.1) mmol/L Chloride 90 L (98-107) mmol/L Carbon Dioxide 39 H (22-32) mmol/L BUN 71 H (9-20) mg/dL Creatinine 1.80 H (0.66-1.25) mg/dL Estimated GFR 36.0 L (>60) mL/min BUN/Creatinine Ratio 39.4 H (6-22) Glucose 231 H (80-110) mg/dL Lactate (0.7-2.1) mmol/L Calcium 9.5 (8.4-10.2) mg/dL Total Bilirubin 0.9 (0.2-1.3) mg/dL AST 59 (17-59) IU/L ALT 78 H (<50) IU/L Alkaline Phosphatase 224 H (38-126) U/L Total Creatine Kinase 20 L (55-170) U/L CK-MB (CK-2) TNP CK-MB (CK-2) Rel Index TNP Troponin I 0.111 H (0.01-0.034) ng/mL B-Natriuretic Peptide (<100) Total Protein 6.4 (6.3-8.2) g/dL Albumin 3.3 L (3.5-5.0) g/dL Globulin 3.1 (1.7-4.1) g/dL Albumin/Globulin Ratio 1.1 (1.0-2.8) Procalcitonin (<0.5) ng/mL Urine Color Urine Appearance Urine pH (4.5-8.0) Ur Specific Concrete (1.000-1.035) Urine Protein (Negative) Urine Glucose (UA) (Negative) g/dL Urine Ketones (NEGATIVE) Urine Occult Blood (Negative) Urine Nitrate (Negative) Urine Bilirubin (NEGATIVE) Urine Urobilinogen (0.2) E.U./dL Ur Leukocyte Esterase (NEGATIVE) Urine RBC (0-5/HPF) Urine WBC (0-5/HPF) Urine Bacteria (None) Ur Culture Indicated? Micro UA Comment 07/26/19 07/26/19 07/26/19 Range/Units 08:40 08:40 08:40 WBC (4.5-11.0) X10^3/uL RBC (4.5-5.9) X10^6/uL Hgb (13.5-17.5) g/dL Hct (41-53) % MCV (80-100) fL MCH (26-34) PG MCHC (30-36) % RDW (11.6-14.8) % Plt Count (150-400) X10^3/uL Neut % (Auto) (50-75) % Lymph % (Auto) (25-40) % Sauk % (Auto) (3-14) % Eos % (Auto) (2-4) % Baso % (Auto) (0-2) % Neut # (Auto) (1813-5887) /uL Lymph # (Auto) (1387-2753) /uL Sauk # (Auto) (0-900) /uL Eos # (Auto) (0-450) /uL Baso # (Auto) (0-100) /uL PT (10.1-12.7) SECONDS INR (0.9-1.3) APTT (26.4-36.2) SECONDS ABG pH (7.35-7.45) ABG pCO2 (35-45) mmHg ABG pO2 (80-100) mmHg ABG HCO3 (22-26) mmol/L ABG Total CO2 (21-31) mmol/L ABG O2 Saturation (95-100) % ABG Base Excess (-2-2) mmol/L FiO2 Sodium (137-145) mmol/L Potassium (3.4-5.1) mmol/L Chloride (98-107) mmol/L Carbon Dioxide (22-32) mmol/L BUN (9-20) mg/dL Creatinine (0.66-1.25) mg/dL Estimated GFR (>60) mL/min BUN/Creatinine Ratio (6-22) Glucose (80-110) mg/dL Lactate (0.7-2.1) mmol/L Calcium (8.4-10.2) mg/dL Total Bilirubin (0.2-1.3) mg/dL AST (17-59) IU/L ALT (<50) IU/L Alkaline Phosphatase (38-126) U/L Total Creatine Kinase Cancelled (55-170) U/L CK-MB (CK-2) Cancelled CK-MB (CK-2) Rel Index Cancelled Troponin I Cancelled (0.01-0.034) ng/mL B-Natriuretic Peptide 1590 H (<100) Total Protein (6.3-8.2) g/dL Albumin (3.5-5.0) g/dL Globulin (1.7-4.1) g/dL Albumin/Globulin Ratio (1.0-2.8) Procalcitonin 0.08 (<0.5) ng/mL Urine Color Urine Appearance Urine pH (4.5-8.0) Ur Specific Concrete (1.000-1.035) Urine Protein (Negative) Urine Glucose (UA) (Negative) g/dL Urine Ketones (NEGATIVE) Urine Occult Blood (Negative) Urine Nitrate (Negative) Urine Bilirubin (NEGATIVE) Urine Urobilinogen (0.2) E.U./dL Ur Leukocyte Esterase (NEGATIVE) Urine RBC (0-5/HPF) Urine WBC (0-5/HPF) Urine Bacteria (None) Ur Culture Indicated? Micro UA Comment 07/26/19 07/26/19 07/26/19 Range/Units 09:30 10:02 12:21 WBC (4.5-11.0) X10^3/uL RBC (4.5-5.9) X10^6/uL Hgb (13.5-17.5) g/dL Hct (41-53) % MCV (80-100) fL MCH (26-34) PG MCHC (30-36) % RDW (11.6-14.8) % Plt Count (150-400) X10^3/uL Neut % (Auto) (50-75) % Lymph % (Auto) (25-40) % Sauk % (Auto) (3-14) % Eos % (Auto) (2-4) % Baso % (Auto) (0-2) % Neut # (Auto) (0575-2030) /uL Lymph # (Auto) (9781-1265) /uL Sauk # (Auto) (0-900) /uL Eos # (Auto) (0-450) /uL Baso # (Auto) (0-100) /uL PT (10.1-12.7) SECONDS INR (0.9-1.3) APTT (26.4-36.2) SECONDS ABG pH (7.35-7.45) ABG pCO2 (35-45) mmHg ABG pO2 (80-100) mmHg ABG HCO3 (22-26) mmol/L ABG Total CO2 (21-31) mmol/L ABG O2 Saturation (95-100) % ABG Base Excess (-2-2) mmol/L FiO2 Sodium (137-145) mmol/L Potassium (3.4-5.1) mmol/L Chloride (98-107) mmol/L Carbon Dioxide (22-32) mmol/L BUN (9-20) mg/dL Creatinine (0.66-1.25) mg/dL Estimated GFR (>60) mL/min BUN/Creatinine Ratio (6-22) Glucose (80-110) mg/dL Lactate 2.8 H 1.9 (0.7-2.1) mmol/L Calcium (8.4-10.2) mg/dL Total Bilirubin (0.2-1.3) mg/dL AST (17-59) IU/L ALT (<50) IU/L Alkaline Phosphatase (38-126) U/L Total Creatine Kinase (55-170) U/L CK-MB (CK-2) CK-MB (CK-2) Rel Index Troponin I (0.01-0.034) ng/mL B-Natriuretic Peptide (<100) Total Protein (6.3-8.2) g/dL Albumin (3.5-5.0) g/dL Globulin (1.7-4.1) g/dL Albumin/Globulin Ratio (1.0-2.8) Procalcitonin (<0.5) ng/mL Urine Color Yellow Urine Appearance Cloudy Urine pH 5.0 (4.5-8.0) Ur Specific Concrete 1.025 (1.000-1.035) Urine Protein 2+ H (Negative) Urine Glucose (UA) Negative (Negative) g/dL Urine Ketones Negative (NEGATIVE) Urine Occult Blood 3+ H (Negative) Urine Nitrate Negative (Negative) Urine Bilirubin Negative (NEGATIVE) Urine Urobilinogen 1.0 (0.2) E.U./dL Ur Leukocyte Esterase Negative (NEGATIVE) Urine RBC >100/hpf (0-5/HPF) Urine WBC 1-5/hpf (0-5/HPF) Urine Bacteria Many (>30) H (None) Ur Culture Indicated? Cult not indicated Micro UA Comment 07/26/19 07/26/19 07/26/19 Range/Units 17:43 18:49 19:27 WBC (4.5-11.0) X10^3/uL RBC (4.5-5.9) X10^6/uL Hgb (13.5-17.5) g/dL Hct (41-53) % MCV (80-100) fL MCH (26-34) PG MCHC (30-36) % RDW (11.6-14.8) % Plt Count (150-400) X10^3/uL Neut % (Auto) (50-75) % Lymph % (Auto) (25-40) % Sauk % (Auto) (3-14) % Eos % (Auto) (2-4) % Baso % (Auto) (0-2) % Neut # (Auto) (0960-0802) /uL Lymph # (Auto) (8177-1214) /uL Sauk # (Auto) (0-900) /uL Eos # (Auto) (0-450) /uL Baso # (Auto) (0-100) /uL PT (10.1-12.7) SECONDS INR (0.9-1.3) APTT (26.4-36.2) SECONDS ABG pH 7.25 L* 7.29 L (7.35-7.45) ABG pCO2 81.4 H* 78.6 H* (35-45) mmHg ABG pO2 68 L 95 (80-100) mmHg ABG HCO3 36 H 38 H (22-26) mmol/L ABG Total CO2 38 H 40 H (21-31) mmol/L ABG O2 Saturation 89 L 96 (95-100) % ABG Base Excess 8.0 H 11.0 H (-2-2) mmol/L FiO2 1.0 1.0 Sodium 135 L (137-145) mmol/L Potassium 6.3 H* (3.4-5.1) mmol/L Chloride 92 L (98-107) mmol/L Carbon Dioxide 39 H (22-32) mmol/L BUN (9-20) mg/dL Creatinine (0.66-1.25) mg/dL Estimated GFR (>60) mL/min BUN/Creatinine Ratio (6-22) Glucose (80-110) mg/dL Lactate (0.7-2.1) mmol/L Calcium (8.4-10.2) mg/dL Total Bilirubin (0.2-1.3) mg/dL AST (17-59) IU/L ALT (<50) IU/L Alkaline Phosphatase (38-126) U/L Total Creatine Kinase (55-170) U/L CK-MB (CK-2) CK-MB (CK-2) Rel Index Troponin I (0.01-0.034) ng/mL B-Natriuretic Peptide (<100) Total Protein (6.3-8.2) g/dL Albumin (3.5-5.0) g/dL Globulin (1.7-4.1) g/dL Albumin/Globulin Ratio (1.0-2.8) Procalcitonin (<0.5) ng/mL Urine Color Urine Appearance Urine pH (4.5-8.0) Ur Specific Concrete (1.000-1.035) Urine Protein (Negative) Urine Glucose (UA) (Negative) g/dL Urine Ketones (NEGATIVE) Urine Occult Blood (Negative) Urine Nitrate (Negative) Urine Bilirubin (NEGATIVE) Urine Urobilinogen (0.2) E.U./dL Ur Leukocyte Esterase (NEGATIVE) Urine RBC (0-5/HPF) Urine WBC (0-5/HPF) Urine Bacteria (None) Ur Culture Indicated? Micro UA Comment Point of Care Testing Glucose POC 232 Imaging Data Chest x-ray: Radiologist's impression: [address] [address] XRay Report Signed Patient: Sami Mcneal CMR#: [id number] : 4Acct:[id number] Age/Sex: 84 / MDate of Service: 07/26/19 Loc: ED Accession Number: [id number] Procedure: XR chest 1V Ordering Provider: Nina Tripp D.O. PROCEDURE: XR CHEST 1V INDICATIONS: concern for sepsis, LOC TECHNIQUE: One view of the chest was acquired. COMPARISON: [facility], , XR CHEST 1V, 07/04/2019, 13:40. FINDINGS: Evaluation of the chest is severely limited related to patient noncompliance. A dedicated conventional frontal view of the chest was unable to be obtained despite multiple attempts by the technologist and nursing staff. The heart probably is enlarged. The pulmonary vascular markings maybe increased. The left diaphragm is not visualized. There is aortic atherosclerosis. Postoperative changes of the spine and sternum are present. IMPRESSION: 1. Markedly Limited chest radiograph related to noncompliant patient. A repeat exam with sedation or CT would be helpful to better evaluate the lungs. 2. Item ileum probable vascular congestion. 3. Probable left basilar pulmonary consolidation. This may represent pleural fluid, atelectasis, or infection. Dictated by: Jordon Nieto M.D. on 07/26/2019 at 8:35 Approved by: Jordon Nieto M.D. on 07/26/2019 at 8:40 CT scan - head: Radiologist's impression: Sami Mcneal 84 M [address] [place] [address] CT Scan Report Signed Patient: Sami Mcneal CMR#: [id number] : 1935cct:[id number] Age/Sex: 84 / MDate of Service: 07/26/19 Loc: ED Accession Number: [id number] Procedure: CT head/brain wo con Ordering Provider: Nina Tripp D.O. PROCEDURE: CT HEAD/BRAIN WO CON INDICATIONS: altered LOC, sepsis TECHNIQUE: Noncontrast 4.5 mm thick angled axial sections acquired from the foramen magnum to the vertex, with coronal and sagittal reformats. For radiation dose reduction, the following was used: automated exposure control, adjustment of mA and/or kV according to patient size. COMPARISON: [facility], CT, CT HEAD/BRAIN WO CON, 07/04/2019, 10:23. FINDINGS: Image quality: Excellent. CSF spaces: Basal cisterns are patent. No extra-axial fluid collections. Ventricles are normal in size and shape. Brain: No midline shift. No intracranial masses or hemorrhage. No area of hypodensity in a large vascular distribution to suggest acute infarction. Extensive periventricular hypodensity most consistent with chronic microvascular ischemic change. Distal intracranial ICA and vertebral artery atherosclerotic calcifications. Age related volume loss. Skull and face: Calvarium and visualized facial bones are intact, without suspicious lesions. Calcifications at the posterior orbits likely related to prior retinal procedure. Sinuses: Visualized sinuses and mastoids are clear. IMPRESSION: No acute intracranial abnormality demonstrated. Dictated by: Bharathi Reid M.D. on 07/26/2019 at 9:53 Approved by: Bharathi Reid M.D. on 07/26/2019 at 9:[address]: Radiologist's impression: Sami Mcneal 84 M [address] [place] [address] CT Scan Report Signed Patient: Sami Mcneal CMR#: [id number] : 1935cct:[id number] Age/Sex: 84 / MDate of Service: 07/26/19 Loc: ED Accession Number: [id number] Procedure: CT lumbar spine wo con Ordering Provider: Nina Tripp D.O. PROCEDURE: CT LUMBAR SPINE WO CON INDICATIONS: low back pain, sacral decub, sepsis, other TECHNIQUE: Noncontrast 3 mm thick sections acquired from the T12 level to the sacrum. Sagittal and coronal reformats were constructed. For radiation dose reduction, the following was used: automated exposure control. COMPARISON: [facility], RG, MRI L-SPINE W/O CONTRAST, 06/17/2005, 14:25. [facility], CT, ABDOMEN W&WO CONTRAST, 11/08/2016, 11:20. [facility], CT, CT LUMBAR SPINE WO CON, 07/06/2019, 12:03. FINDINGS: Image quality: Excellent. Bones: No acute vertebral body compression fractures. No suspicious lytic or blastic bony lesions. Lower thoracic spine fixation hardware is partially seen. No findings of failure or loosening are seen. Postoperative changes are seen of the lumbar spine, with removal of portions of posterior elements inferiorly. Bone grafting material is noted. There is levoconvex lumbar scoliosis. Grade 2 anterolisthesis is seen at L5-S1. Moderate to severe disc space narrowing can be seen at each lumbar level. Prominent bridging endplate osteophytes are seen. Soft tissues: No retroperitoneal masses or hematomas. Visualized aorta is normal in caliber. Atherosclerotic calcification is noted. Stable low-density lesions can be seen involving the kidneys, including a 3.7 cm mass along the lateral aspect of the left kidney that measures greater than 50 Hounsfield units. Within the inferior medial right kidney, there is a low-density lesion that measures greater than 20 Hounsfield units and measures 2.5 cm. Diverticulosis is seen, without findings of active diverticulitis. A history of a sacral decubitus ulcer is given. This is off of the field-of-v iew of the current study. IMPRESSION: A cause of sepsis is identified. The clinically apparent sacral decubitus ulcer is off of the [id number] of this study. Postoperative and advanced degenerative changes are seen, which are stable compared to the prior examination. Renal lesions are seen, several of which cannot be defined as simple cysts. These may be related to hyperdense/hemorrhagic cysts. If clinically appropriate, a dedicated renal mass protocol CT could be considered for further evaluation. Incidental note is made of: Atherosclerotic calcification Diverticulosis is seen, without findings of active diverticulitis. Dictated by: Anders Pham M.D. on 07/26/2019 at 9:16 Approved by: Anders Pham M.D. on 07/26/2019 at 9:26 ECG Data Attestation: I personally reviewed and interpreted this ECG as follows: Prior ECG tracings: not available for review Interpretation: Sinus rhythm with first-degree AV block left axis deviation P are 257 QRS of 193 QTC of 458. Left bundle branch is noted. patient has prior E KG from 07/04/2019 which appears similar. [facility] Narrative Medical decision making narrative: Patient comes in markedly altered. After being placed on 2 his mentation improved quite quickly. He appears to be not as perky as normal but his son is at baseline and states he is at his normal baseline head CT was ordered because of this was negative, patient has had a longstanding history of back pain and L- spine was ordered. He does have a sacral decubitus on his buttocks which is deep and noted to have some foul odor but no active purulent drainage and does not look to be obviously cellulitic surrounding area. His white count is elevated, procalcitonin is negative. He has been afebrile. He does appear to have some acute on chronic renal failure with a creatinine of 1.8. His potassium is 6 today, his BNP is in the 1500 range which is elevated from his typical for to 700 range on past visits in June. Patient has had some urine output but been minimal. He is not hemodialysis patient. Patient's chest x-ray is poor quality based on his habitus but does appear to show any pulmonary edema. hemoglobin appears stable at 13 with a crit of 42 which is improved on his last visit of 14/05. His platelets are 110. Patient's lactate is 2.8 on repeat is 1.9. He has multiple other mild electrolyte abnormalities with a BUN of 70 which is elevated but typically baseline appears to be 50-60. Glucose is 231. Patient's alk-phos and ALT are elevated to 24 and 78. His troponin is elevated at 0.111 he has been 0.114 and 0.08 on his last visit in June. I do have a prior EKG for comparison which shows left bundle branch block and ST elevation today does appear same as on his EKG from July 04. Patient does not have any new depression noted. case was discussed with our hospitalist with plan for admission, she discussed with Cardiology and they feel patient would be more warranted to be transferred to another facility. Patient's family lives in [place] in [facility] and they would pre for to be closer to [place] if he is to be transferred. Initial goal for family was [facility], were not available. Patient DNR status was discussed with him and in front of his son. Patient is clear that he does not want intubation, he does not want electrical shock, he does not want CPR. He is open to BiPAP. Patient accepted by Dr. Barnes at [facility]. Discussed with the accepting physician he does not request any additional changes at this time. Plan for ACLS transport. Awaiting bed for several hours. After bed assignment EMS was contacted and arrived for patient. While patient was awaiting for transportation, patient was rolled and his O2 sat seem to drop they did try to suction the patient and this also seemed to decrease his O2 sats. Patient's O2 in the 88% range. Discussed with patient and he is willing to try BiPAP here in the department. We did verify his DNR status. He continues to be alert and does respond to me and talk to me. Patient continues to be alert. when EMS tried to put patient on their BiPAP patient desats. Air lift was contacted came to the department patient tolerated with their BiPAP without any continued desats. PH continues to be the same with no increase in CO2. Patient continues to be alert. lytes were repeated patient's potassium has not decreased. Patient was given additional medications. [facility] was re-contacted to update. Discharge Plan Departure Patient Disposition: [facility] Clinical Impression: CHF (congestive heart failure), Acute hyperkalemia, Acute on chronic renal failure, Non-ST elevation [place] (NSTEMI) Prescriptions: No Action rosuvastatin [Crestor] 10 MG tablet 10 mg PO QPM Qty: 0 RF: 0 B1/B2/NIACIN/B12/PROTEASE (B-Complex With B-12 Tablet) 1 tab PO DAILY Qty: 0 RF: 0 glipizide 5 mg Tablet 5 mg PO DAILY RF: 0 polyethylene glycol 3350 17 gram powder in packet 17 g PO PRN PRN (Reason: Constipation) RF: 0 bisacodyl 10 mg suppository 10 mg MS PRN PRN (Reason: Constipation) RF: 0 docusate sodium [DOK] 100 mg capsule 100 mg PO PRN PRN (Reason: Constipation) RF: 0 nystatin [Nystop] 100,000 unit/gram powder 1 applic topical PRN PRN (Reason: Rash) RF: 0 amiodarone 200 mg tablet 100 mg PO DAILY RF: 0 tamsulosin 0.4 mg capsule 0.4 mg PO QPM RF: 0 isosorbide mononitrate 30 mg tablet extended release 24 hr 30 mg PO DAILY RF: 0 potassium chloride 10 mEq capsule, extended release 20 meq PO DAILY RF: 0 oxymetazoline 0.05 % spray,non-aerosol 2 spray Intranasal PRN PRN (Reason: (Drug) Ingestion) RF: 0 hydralazine 10 mg tablet 10 mg PO TID RF: 0 Magnesium (oxide/AA chelate) 300 mg Capsule 1 tab PO QAM RF: 0 cholecalciferol (vitamin D3) [Vitamin D3] 1,000 unit Capsule 1,000 unit PO DAILY RF: 0 Super Cranberry 140-100 mg Capsule 1 tab PO QAM RF: 0 hydrocortisone valerate 0.2 % ointment 1 applic TOPICAL PRN PRN (Reason: Rash) RF: 0 mupirocin 2 % ointment 1 applic TOPICAL PRN PRN (Reason: Rash) RF: 0 Lantus Solostar U-100 Insulin 100 unit/mL (3 mL) insulin pen 16 unit SUBCUT DAILY RF: 0 Eliquis 2.5 mg tablet 2.5 mg PO BID RF: 0 acetaminophen 325 mg Tablet 650 mg PO Q6HR Qty: 30 RF: 0 lidocaine 5 % Adhesive Patch,Medicated 1 ea topical DAILY Qty: 10 RF: 0 oxycodone 5 mg Tablet 5 mg PO Q4HR PRN (Reason: Pain, Moderate (4-6)) Qty: 20 RF: 0 furosemide 40 mg tablet 80 mg PO DAILY Qty: 60 RF: 0 Referrals: Rene Clark MD [Primary Care Provider] -
--- NOTE | 2019-07-26 09:31 | DI.CT.S_ITS ---
PROCEDURE: CT HEAD/BRAIN WO CON INDICATIONS: altered LOC, sepsis TECHNIQUE: Noncontrast 4.5 mm thick angled axial sections acquired from the foramen magnum to the vertex, with coronal and sagittal reformats. For radiation dose reduction, the following was used: automated exposure control, adjustment of mA and/or kV according to patient size. COMPARISON: [facility], CT, CT HEAD/BRAIN WO CON, 07/04/2019, 10:23. FINDINGS: Image quality: Excellent. CSF spaces: Basal cisterns are patent. No extra-axial fluid collections. Ventricles are normal in size and shape. Brain: No midline shift. No intracranial masses or hemorrhage. No area of hypodensity in a large vascular distribution to suggest acute infarction. Extensive periventricular hypodensity most consistent with chronic microvascular ischemic change. Distal intracranial ICA and vertebral artery atherosclerotic calcifications. Age related volume loss. Skull and face: Calvarium and visualized facial bones are intact, without suspicious lesions. Calcifications at the posterior orbits likely related to prior retinal procedure. Sinuses: Visualized sinuses and mastoids are clear. IMPRESSION: No acute intracranial abnormality demonstrated. Dictated by: Bharathi Reid M.D. on 07/26/2019 at 9:53 Approved by: Bharathi Reid M.D. on 07/26/2019 at 9:55
[2019-07-26 09:50] LABS: Add Manual Diff / Slide Review NO; Basophils Absolute Auto 0 /uL (0-100); Basophils Percent Auto 0.5 % (0-2); Eosinophils Absolute Auto 100 /uL (0-450); Eosinophils Percent Auto 0.6 % (2-4); Hematocrit 42.6 % (41-53); Hemoglobin 13.5 g/dL (13.5-17.5); INR 1.2 (0.9-1.3); Lymphocytes Absolute Auto 700 /uL (1100-4500); Mean Corpuscular HGB Conc 31.8 % (30-36); Mean Corpuscular Hemoglobin 33.7 PG (26-34); Monocytes Absolute Auto 900 /uL (0-900); Monocytes Percent Auto 10.4 % (3-14); Neutrophils Absolute Auto 7200 /uL (1500-7000); Neutrophils Percent Auto 80.5 % (50-75); Platelet Count 110 X10^3/uL (150-400); Prothrombin Time 14.5 SECONDS (10.1-12.7); Red Blood Cell Count 4.02 X10^6/uL (4.5-5.9); Red Cell Distribution Width 15.1 % (11.6-14.8); White Blood Cell Count 8.9 X10^3/uL (4.5-11.0)
[2019-07-26 09:53] LABS: PTT Partial Thromboplastin Tim 34 SECONDS (26.4-36.2)
[2019-07-26 09:58] LABS: Alanine Aminotransferase 78 IU/L (<50); Albumin 3.3 g/dL (3.5-5.0); Albumin Globulin Ratio 1.1 (1.0-2.8); Alkaline Phosphatase 224 U/L (38-126); Aspartate Aminotransferase 59 IU/L (17-59); BUN Creatinine Ratio 39.4 (6-22); Bilirubin Total 0.9 mg/dL (0.2-1.3); Blood Urea Nitrogen 71 mg/dL (9-20); Calcium 9.5 mg/dL (8.4-10.2); Carbon Dioxide 39 mmol/L (22-32); Chloride 90 mmol/L (98-107); Creatine Kinase 20 U/L (55-170); Globulin 3.1 g/dL (1.7-4.1); Glucose 231 mg/dL (80-110); HEMOLYSIS 18 (0-50); Sodium 136 mmol/L (137-145); Total Protein 6.4 g/dL (6.3-8.2)
--- NOTE | 2019-07-26 09:58 | DI.CT.S_ITS ---
PROCEDURE: CT LUMBAR SPINE WO CON INDICATIONS: low back pain, sacral decub, sepsis, other TECHNIQUE: Noncontrast 3 mm thick sections acquired from the T12 level to the sacrum. Sagittal and coronal reformats were constructed. For radiation dose reduction, the following was used: automated exposure control. COMPARISON: [facility], RG, MRI L-SPINE W/O CONTRAST, 06/17/2005, 14:25. [facility], CT, ABDOMEN W&WO CONTRAST, 11/08/2016, 11:20. [facility], CT, CT LUMBAR SPINE WO CON, 07/06/2019, 12:03. FINDINGS: Image quality: Excellent. Bones: No acute vertebral body compression fractures. No suspicious lytic or blastic bony lesions. Lower thoracic spine fixation hardware is partially seen. No findings of failure or loosening are seen. Postoperative changes are seen of the lumbar spine, with removal of portions of posterior elements inferiorly. Bone grafting material is noted. There is levoconvex lumbar scoliosis. Grade 2 anterolisthesis is seen at L5-S1. Moderate to severe disc space narrowing can be seen at each lumbar level. Prominent bridging endplate osteophytes are seen. Soft tissues: No retroperitoneal masses or hematomas. Visualized aorta is normal in caliber. Atherosclerotic calcification is noted. Stable low-density lesions can be seen involving the kidneys, including a 3.7 cm mass along the lateral aspect of the left kidney that measures greater than 50 Hounsfield units. Within the inferior medial right kidney, there is a low-density lesion that measures greater than 20 Hounsfield units and measures 2.5 cm. Diverticulosis is seen, without findings of active diverticulitis. A history of a sacral decubitus ulcer is given. This is off of the [id number] of the current study. IMPRESSION: A cause of sepsis is identified. The clinically apparent sacral decubitus ulcer is off of the [id number] of this study. Postoperative and advanced degenerative changes are seen, which are stable compared to the prior examination. Renal lesions are seen, several of which cannot be defined as simple cysts. These may be related to hyperdense/hemorrhagic cysts. If clinically appropriate, a dedicated renal mass protocol CT could be considered for further evaluation. Incidental note is made of: Atherosclerotic calcification Diverticulosis is seen, without findings of active diverticulitis. Dictated by: Anders Pham M.D. on 07/26/2019 at 9:16 Approved by: Anders Pham M.D. on 07/26/2019 at 9:26
[2019-07-26 10:10] LABS: B Type Natriuretic Peptide 1590 (<100); Troponin I 0.111 ng/mL (0.01-0.034)
[2019-07-26 10:40] LABS: Lactate (Lactic Acid) 2.8 mmol/L (0.7-2.1)
[2019-07-26 10:47] LABS: Procalcitonin 0.08 ng/mL (<0.5)
[2019-07-26] MEDS: SODIUM POLYSTYRENE SULFON/SORB 15 GM/60 ML CUP 30 GM PO (10:48)
[2019-07-26] MEDS: ALBUTEROL 2.5 MG/3 ML NEB (ADULT) INH (10:49)
[2019-07-26] MEDS: FUROSEMIDE 100 MG/10 ML VIAL 60 MG IV (10:53)
[2019-07-26] MEDS: DEXTROSE 50 % IN WATER 25 GM/50 ML SYRINGE IV ×2 (10:54→20:13)
[2019-07-26] MEDS: INSULIN REGULAR 100 UNIT/ML 3 ML VIAL IV (11:00)
[2019-07-26] MEDS: CALCIUM GLUCONATE 4.65 MEQ in SODIUM CHLORIDE 0.9% 50 ML 120 ML IV (11:04)
[2019-07-26 11:23] LABS: Appearance Urine UA CLOUDY; Bilirubin Urine UA NEGATIVE (NEGATIVE); Color Urine UA YELLOW; Glucose Urine UA NEGATIVE (Negative); Ketones Urine UA NEGATIVE (NEGATIVE); Leukocyte Esterase Urine UA NEGATIVE (NEGATIVE); Nitrite Urine UA NEGATIVE (Negative); Occult Blood Urine UA 3+ (Negative); Protein Urine UA 2+ (Negative); Specific Gravity Urine UA 1.025 (1.000-1.035)
[2019-07-26 11:53] LABS: Bacteria Urine Many (>30); RBC Urine >100/HPF (0-5/HPF); WBC Urine 1-5/HPF (0-5/HPF)
[2019-07-26 11:54] LABS: Culture Indicated Urine Cult Not Indicated
[2019-07-26 12:23] LABS: Reflexed Lactate in 2 Hours Y
--- NOTE | 2019-07-26 12:46 | PC.NURSE ---
2 minutes after placing patient on Non Rebreather at 15LO2, patient's lips no longer appear blue, he is more alert and answers questions appropriately. RT at bedside assessing patient, lung sounds are clear however diminished. Some upper airway rattling/loose cough noted.
[2019-07-26 12:58] LABS: Lactate 2HR (Lactic Acid Rflx) 1.9 mmol/L (0.7-2.1)
--- NOTE | 2019-07-26 17:02 | PC.NURSE ---
RT at bedside suctioning patient.
--- NOTE | 2019-07-26 17:24 | PC.NURSE ---
Patient unable to maintain sats above 88% on NRB at 15L even after suctioning. Dr. Tripp at bedside, patient being placed on BIPAP at this time. I called Ruben Nguyen and updated the nurses of the situation. [facility] RN at bedside assisting RT with BIBPAP and suctioning.
[2019-07-26 18:06] LABS: HCO3 ABG 36 mmol/L (22-26); Oxygen Saturation ABG 89 % (95-100); PCO2 ABG 81.4 mmHg (35-45); PO2 ABG 68 mmHg (80-100); TCO2 ABG 38 mmol/L (21-31); pH ABG 7.25 (7.35-7.45)
[2019-07-26 19:01] LABS: pH ABG 7.29 (7.35-7.45)
[2019-07-26 19:02] LABS: HCO3 ABG 38 mmol/L (22-26); Oxygen Saturation ABG 96 % (95-100); PCO2 ABG 78.6 mmHg (35-45); PO2 ABG 95 mmHg (80-100); TCO2 ABG 40 mmol/L (21-31)
--- NOTE | 2019-07-26 19:41 | PC.NURSE ---
183 Patient was determined at this time to be unable to go via [facility] to [facility] on their BIPAP machine as it is a different machine and is unable to maintain enough pressure to increase his O2 sat about 90%. Per Dr. Tripp Flight team has been called to transport patient.
[2019-07-26 19:48] LABS: Carbon Dioxide 39 mmol/L (22-32); Chloride 92 mmol/L (98-107); HEMOLYSIS < 15 (0-50); Sodium 135 mmol/L (137-145)
[2019-07-26 19:51] LABS: Potassium 6.3 mmol/L (3.4-5.1)
[2019-07-26] MEDS: FUROSEMIDE 120 MG in SODIUM CHLORIDE 0.9% 50 ML 124 ML IV (19:52)
[2019-07-26] MEDS: INSULIN REGULAR 100 UNIT/ML 3 ML VIAL 10 UNIT IV (20:12)
== END 2019-07-26 20:17 | disposition short-term general hospital (02) ==
PROVIDERS: Emergency Provider Emergency Medicine; Family Provider Family Medicine; PCP Family Medicine
DX: I11.0 Hypertensive heart disease with heart failure (principal); I50.9 Heart failure, unspecified; E78.5 Hyperlipidemia, unspecified; N17.9 Acute kidney failure, unspecified; N18.9 Chronic kidney disease, unspecified; I21.4 Non-ST elevation (NSTEMI) myocardial infarction; M54.5 Low back pain; L89.309 Pressure ulcer of unspecified buttock, unspecified stage; I12.9 Hypertensive chronic kidney disease with stage 1 through stage 4 chronic kidney disease, or unspecified chronic kidney disease; E11.65 Type 2 diabetes mellitus with hyperglycemia; Z79.4 Long term (current) use of insulin; R41.82 Altered mental status, unspecified
CPT/HCPCS: 36415; 36600; 70450; 71045; 72131; 80051; 80053; 81001; 82550; 82805; 82962; 83605; 83880; 84145; 84484; 85025; 85610; 85730; 87040; 93005; 94640; 94760; 96365; 96367; 96375; 96376; 99285; 99291; 99292; J0610; J1940; J7613